=== PATIENT | female | born 1985 | race Caucasian/White ===

== ENCOUNTER 2023-11-04 07:43 | Inpatient (IN) ==
[2023-11-04] MEDS ORDERED: OXYTOCIN 30 UNITS/NSS 30 UNITS/500 ML BAG IV PRN (08:10)
[2023-11-04] MEDS ORDERED: LIDOCAINE 1% LOCAL 20 ML VIAL INFIL PRN (08:10)
[2023-11-04 09:08] LABS: Hematocrit (blood only) 34.9 % (37.0-47.0); Hemoglobin 12.4 g/dl (12.0-16.0); Mean Corpuscular Hemoglobin 27.5 pg (25.0-34.0); Mean Corpuscular Hgb Conc 35.5 g/dL (32.0-36.0); Mean Corpuscular Volume 77.4 fL (80.0-100.0); Mean Platelet Volume 9.2 fL (9.4-12.4); Platelet Count 222 K/uL (130-400); RDW Coefficient of Variation 17.6 % (11.5-14.5); RDW Standard Deviation 49.6 fL (36.4-46.3); Red Blood Count 4.51 M/uL (4.20-5.40); White Blood Count 7.79 K/ul (4.8-10.8)
[2023-11-04] MEDS: DINOPROSTONE 10 MG INSERT PV ONE (09:11)
--- NOTE | 2023-11-04 09:26 | History & Physical Report ---
Date of Service November 04, 2023 Assessment & Plan Admission and Anticipated Discharge Date Admission Date: November 04, 2023 History of Present Illness Chief Complaint: induction of labor Primary Care Provider: RICKY PCP 38 F P0000 at 41 weeks presents for IOL for post-dates. GBS is negative. She has no problems to dates. Allergies Allergy/AdvReac Type Severity Reaction Status Date / Time Penicillins Allergy Intermediate Hives Verified 11/04/23 08:11 Home Medications Medication Instructions Recorded Confirmed Type docusate sodium 100 mg capsule 100 mg PO DAILY 11/04/23 11/04/23 History (Colace) ferrous sulfate 27 mg iron tablet 27 mg PO DAILY 11/04/23 11/04/23 History vit no.95-ferrous 1 tab PO DAILY 11/04/23 11/04/23 History fumarate 28 mg-folic acid 800 mcg tablet () Patient History Medical History Fibroid During . "Shrinking" Was seen in [place]. 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 [employer] Other Information That Helps Us Care for You: No Feels Safe at Home: Yes Safety Concerns: Feels Safe At This Time Diet: regular Assistive Devices: None OB History primip TIP STITCHER History fibroids Review of Systems All systems reviewed & are unremarkable except as noted in HPI & below Physical Exam Constitutional: WD/WN, vitals as above Eyes: PERRL, conjunctivae normal, anicteric sclerae Respiratory: normal respiratory effort, lungs clear to auscultation Cardiovascular: Rate/Rhythm: regular rate and regular rhythm Musculoskeletal: Extremities: extremities normal to inspection Neurologic: patellar DTR's 2+ bilat, sensation intact Psychiatric: A+Ox3, euthymic affect Genitourinary: no vaginal lesions, no adnexal mass Manual OB Exam: + cervical dilation fingertip, + cervical effacement 50% and + station high OB Exam Monitor Tracing: + external FHT monitor used, + external uterine monitor used, + category I and + normal FHT variability Cervidil 10 mg placed vaginally Results & Data Vital Signs (Past 12 Hours) Vital Signs Temp Pulse Resp BP 11/04/23 08:18 36.5 C 20 11/04/23 08:03 100 H 116/85 Code Status & VTE Plan VTE Prophylaxis Plan VTE Prophylaxis will be ordered: No
--- OUTSIDE RECORDS SUMMARY | 2023-11-04 14:17 | External Medical Summary | Summary of Care ---
Author Name Unknown Organization [facility] Address [address] [place] [address] Phone [phone] Care Team Providers Care Chemical Economist Name Role Phone Eli Junior MD Primary Care Provider Reason for Visit * Reason Comments Outpatient Testing Encounter Details Date Type Department Care Team (Late st Contact Info) Description 09/29/2023 8:20 AM EDT Laboratory Laboratory, [facility] [address] [place] [address] [facility] [address] [place] [address] [employer] Other*[id number]; Iron deficiency anemia, unspecified iron deficiency anemia type Allergies Active Allergy Reactions Criticality Noted Date Comments Penicillins Hives 03/16/2017 documented as of this encounter (statuses as of 09/29/2023) Medications Medication Sig Dispensed Refills Start Date End Date Status valACYclovir HCl 1 GM Oral Tablet (Valtrex)Indications :Herpes labialis Take 2 Tablets by mouth in the morning and 2 Tablets before bedtime. For 1 day for cold sores. 12 Tablet 5 03/03/2023 Active 28-0.8 MG Oral Tablet Take by mouth. Active Docusate Sodium 50 MG Oral Capsule Take by mouth 2 times a day. Active Breast Pump Dispense double electric breast pump. Dx Z39.1 1 Each 09/01/2023 Active Vitron-C 65-125 MG Oral Tablet (Iron-Vitamin C 65-125 mg per tab) Take 1 Tablet by mouth in the morning. Active documented as of this encounter (statuses as of 09/29/2023) Active Problems Problem Noted Date Diagnosed Date Iron deficiency anemia 08/19/2023 Antepartum anemia complicating 024 Overview: Recommend iron infusions-- received Supervision of normal first 04/30/2023 AMA (advanced maternal age) primigravida 35+ Uterine fibroid in 04/30/2023 Overview: A subserosal fibroid is seen in the left anterior uterus, measuring 2.8 x 3.1 x 3.2 cm. ~5 cm at 20 weeks; MFM consult ordered COVID-19 virus infection 11/20/2021 Overview: 11/08/21 Estimated Date of Delivery Comme nts Yes 10/28/2023 Based on Ultraso und documented as of this encounter (statuses as of 09/29/2023) Resolved Problems Problem Noted Date Diagnosed Date Resolved Date renal anomaly, single gestation 07/01/2023 08/04/2023 Last Assessment & Plan: I reviewed the ultrasound. The overall estimated weight is consistent with the 55th percentile for the gestational age and the anatomy that was visualized appears unremarkable. The right and left kidneys measure 4.4 and 4.6 mm, respectively. This is appropriate for this gestational age. The fibroid is again seen. The amniotic fluid volume is normal at 20 cm and the fetus is in the vertex presentation. documented as of this encounter (statuses as of 09/29/2023) Immunizations Name Administration Dates Next Due COVID-19 mRNA, LNP-s, No Pre serve, 2-Dose Series (Moderna) 06/12/2020,05/13/2020 COVID-19, mRNA, LNP-s, PF, B ooster, 100mcg/0.5mg (Moderna) 02/15/2021 TDAP (age 10 and older)(Boostrix) 08/19/2023 documented as of this encounter Social History Tobacco Use Types Packs/Day Years Used Date Smoking Tobacco: Never Smokeless Tobacco: Never Alcohol Use Standard Drinks/Week Comments Not Currently 0 (1 standard drink = 0.6 oz pur e alcohol) occ PHQ-2 Answer Date Recorded PHQ Adult Total Score 2 05/10/2021 Hunger Vital Sign Answer Date Recorded Within the past 12 months, y ou worried that your food would run out before you got the money to buy more. Never true 06/02/19 24 Within the past 12 months, t he food you bought just didn't last and you didn't have money to get more. Never true 06/02/2023 [place] Depression Scale Answer Date Recorded [place] Depression Scale Total 7 04/30/2023 The thought of harming myself has occurred to me . Never 04/30/2023 Childcare Answer Date Recorded Do you feel overwhelmed with taking care of a child, family member or friend? No 06/02/2023 Does your family need help f inding childcare? (Household - for ages 0-17 years) Not on file 06/02/2023 Clothing Answer Date Recorded Have you been unable to get clothing when it was really needed? No 06/02/2023 Is your family able to get c lothes or diapers when needed? (Household - for ages 0-17 years) Not on file 06/02/2023 Personal Safety Answer Date Recorded Do you feel unsafe or have concerns for your saf ety? No 06/02/2023 Do you have concerns for you r family's safety? (Household - for ages 0-17 years) Not on file 06/02/2023 Utilities Answer Date Recorded Do you have trouble paying y our heating, water, or electric bill? No 06/02/2023 Is your family able to pay t he heat, water, or electric bill? (Household - for ages 0-17 years) Not on file 06/02/2023 Does your family have access to good internet? (Household - for ages 0-17 years) Not on file 06/02/2023 Employment Status Answer Date Recorded Are you unemployed or without regular income? No 06/02/2023 Does the household have a re gular source of income? (Household - for ages 0-17 years) Not on file 06/02/2023 Social Connections Answer Date Recorded How often do you feel lonely or isolated from th ose around you? Never 06/02/2023 Financial Resource Strain Answer Date R ecorded Do you have any trouble payi ng for your medications, or do you think you might in the future? No 06/02/2023 Does your family have troubl e paying for medicine? (Household - for ages 0-17 years) Not on file 06/02/2023 Transportation Needs Answer Date Record ed READ ONLY Do you have troubl e getting a ride to medical visits or work? Never True 06/02/2023 Does your family have a hard time getting a ride to doctors visits? (Household - for ages 0-17 years) Not on file 06/02/2023 Has lack of transportation k ept you from medical appointments, meetings, work, or from getting things needed for daily living? Check all that apply. (Adult - for ages 18 years and over) Not on file 06/02/2023 Do you (or your family) have trouble finding or paying for a ride (transportation)? (Household - for ages 0-17 years) Not on file 06/02/2023 Housing Stability Answer Date Recorded Do you currently live in a s helter or have no steady place to sleep at night? No 06/02/2023 READ ONLY Do you think you a re at risk of becoming homeless? No 06/02/2023 Does your family worry about paying for your home or becoming homeless? (Household - for ages 0-17 years) Not on file 0 06/02/2023 Are you homeless or worried that you might be in the future? (Adult - for ages 18 years and over) Not on file Are you (or your family) misty eless or worried that you might be in the future? (Household - for ages 0-17 years) Not on file Food Insecurity Answer Date Recorded Do you need food for this week? No 06/02/2023 Are you able to get enough f ood for your family? (Household - for ages 0-17 years) Not on file 06/02/2023 Does your family need food t his week? (Household - for ages 0-17 years) Not on file 06/02/2023 Do you always have enough fo od for your family? (Household - for ages 0-17 years) Not on file 06/02/2023 Estimated Date of Delivery Comme nts Yes 10/28/2023 Based on Ultraso und Sex and Gender Information Value Date Recorded Sex Assigned at Female 11/10/2022 2:30 PM EDT Gender Identity Female 11/10/2022 2:30 PM EDT Sexual Orientation Straight 11/10/2022 2 :30 PM EDT Job Start Date Occupation Industry Not on file Not on file Not on file documented as of this encounter Plan of Treatment Upcoming Encounters Date Type Department Care Team (Late st Contact Info) Description 09/30/2023 9:30 AM EDT Pharmacy Pharmacy, [place] [address] [place] [address] Clinic, [place] [address] [place] [address] 10/06/2023 8:15 AM EDT Office Visit Gynecology/Obstetrics [facility] [address] [place] [address] Destinee Robins CRNP [address] [place] [address] 10/13/2023 8:45 AM EDT Office Visit Gynecology/Obstetrics [facility] [address] [place] [address] Dina Azul CRNP [address] [place] [address] 10/14/2023 11:20 AM EDT Office Visit Pediatrics [facility] [address] [place] [address] Elin Chamberlain PA-C [address] [place] [address] 10/20/2023 8:15 AM EDT Office Visit Gynecology/Obstetrics [facility] [address] [place] [address] Destinee Robins CRNP [address] [place] [address] 10/27/2023 8:15 AM EDT Office Visit Gynecology/Obstetrics [facility] [address] [place] [address] Destinee Robins CRNP [address] [place] [address] Pending Results Name Type Priority Associated Diagnoses Date /Time MYCODE INITIAL ADULT Lab Routine [employer] Other*[id number] 09/29/2023 8:23 AM EDT CBC WITH WBC DIFFERENTIAL Lab Routine Iron deficiency anemia, unspecified iron deficiency anemia type 09/29/2023 8:23 AM EDT IRON SCREEN, INCLUDING TIBC Lab Routine Iron deficiency anemia, unspecified iron deficiency anemia type 09/29/2023 8:23 AM EDT FERRITIN Lab Routine Iron deficiency anemia, unspecified iron deficiency anemia type 09/29/2023 8:23 AM EDT RETICULOCYTE PANEL Lab Routine Iron deficiency anemia, unspecified iron deficiency anemia type 09/29/2023 8:23 AM EDT VITAMIN B12 Lab Routine Iron deficiency anemia, unspecified iron deficiency anemia type 09/29/2023 8:23 AM EDT FOLIC ACID Lab Routine Iron deficiency anemia, unspecified iron deficiency anemia type 09/29/2023 8:23 AM EDT MYCODE INITIAL ADULT-PINK Lab Routine [employer] Other*[id number] 09/29/2023 8:23 AM EDT MYCODE SST1 Lab Routine [employer] Other*[id number] 09/29/2023 8:23 AM EDT MYCODE SST2 Lab Routine [employer] Other*[id number] 09/29/2023 8:23 AM EDT CBC Lab Routine Iron deficiency anemia, unspecified iron deficiency anemia type 09/29/2023 8:23 AM EDT DIFFERENTIAL, AUTOMATED Lab Routine Iron deficiency anemia, unspecified iron deficiency anemia type 09/29/2023 8:23 AM EDT Health Maintenance Due Date Last Done Comments Hepatitis B Vaccine (1 of 3 - 19+ 3-dose series) 2005 Depression Screening 05/10/2022 05/10/2021 COVID-19 Vaccine ( season) 2022 02/15/2021, 06/12/2020, 05/13/2020 Influenza Vaccine (FLU shot) (#1) 2023 Pap Smear 04/29/2026 04/30/2023, 03/12, 03/16/2017, Additional history exists Cervical Cancer Screening 04/29/2028 HPV/Co-Test 04/29/2028 04/30/2023 DTaP,Tdap,and Td Vaccines (2 - Td or Tdap) 08/18/2033 08/19/2023 HPV (Gardasil) Vaccine Aged Out No lo nger eligible based on patient's age to complete this topic MENINGOCOCCAL (MENACTRA/MENVEO) Aged Out No longer eligible based on patient's age to complete this topic Pneumococcal Vaccine: Pediatrics (0 to 5 Years) and At-Risk Patients (6 to 64 Years) Aged Out No longer eligible based on patient's age to complete this topic documented as of this encounter Medical Devices Not on filedocumented as of this encounter Visit Diagnoses Diagnosis [employer] Other*[id number] Iron deficiency anemia, unspecified iron deficiency anemia type documented in this encounter Care Teams Chemical Economist Relationship Specialty Start Date End Date Eli Junior MD [address] [facility] [place] [address] PCP - General Internal Medicine 04/08/21 documented as of this encounter
--- OUTSIDE RECORDS SUMMARY | 2023-11-04 14:17 | External Medical Summary ---
Author Name Unknown Address Unknown Organization K01:[facility] - [address] [place] [address] Laboratory Report Ordering Provider Test Date Status BLAS BALLARD 09/29/2023 08:23:09 Final Observation Date Value Abnormality Reference (Units ) Status Iron 09/29/2023 08:23:09 103 33-151 (ug /dL) Final Iron-binding capacity 09/29/2023 08:23:09 394 250-425 (ug/dL) Final Transferrin Sat % 09/29/2023 08:23:09 26 15 -55 (%) Final Performing Location [facility] - [address] [place] [address]
--- OUTSIDE RECORDS SUMMARY | 2023-11-04 14:17 | External Medical Summary ---
Author Name Unknown Address Unknown Organization K[facility] - [address] [place] [address] Laboratory Report Ordering Provider Test Date Status RADHA MILLS 09/29/2023 08:23:09 Final Observation Date Value Abnormality Reference (Units ) Status MYCODE SPECIMEN-SST 09/29/2023 08:23:09 Freezing of extracted DNA, whole blood and/or serum. Final Performing Location [facility] - [address] [place] [address]
--- OUTSIDE RECORDS SUMMARY | 2023-11-04 14:17 | External Medical Summary | Summary of Care ---
Author Name Unknown Organization [facility] Address [address] [facility] [place] [address] Phone [phone] Care Team Providers Care Biometry Teacher Name Role Phone Eli Junior MD Primary Care Provider Reason for Visit * Reason Comments Return Visit Encounter Details Date Type Department Care Team (Late st Contact Info) Description 10/27/2023 8:15 AM EDT Office Visit Gynecology/Obstetric s [facility] [address] [place] [address] Destinee Robins CRNP [address] [facility] [place] [address] Encounter for supervision of normal first in third trimester*; Primigravida of advanced maternal age in third trimester; Uterine fibroid in ; Antepartum anemia complicating Allergies Active Allergy Reactions Criticality Noted Date Comments Penicillins Hives 03/16/2017 documented as of this encounter (statuses as of 10/27/2023) Medications Medication Sig Dispensed Refills Start Date [...] as of this encounter (statuses as of 10/27/2023) Active Problems Problem Noted Date Diagnosed Date [...] as of this encounter (statuses as of 10/27/2023) Resolved Problems Problem Noted Date Diagnosed Date [...] as of this encounter (statuses as of 10/27/2023) Immunizations Name Administration Dates Next Due COVID-19 [...] money to get more. Never true 06/02/2023 [place] Depression Scale Answer Date Recorded [place] Depression Scale Total 0 10/13/2023 The thought of harming myself has occurred to me . Never 10/13/2023 Childcare Answer Date Recorded Do you feel [...] 2:30 PM EDT Sexual Orientation Straight 11/10/2022 2: 30 PM EDT Job Start Date Occupation Industry Not on file Not on file Not on file documented as of this encounter Last Filed Vital Signs Vital Sign Reading Time Taken Comments Blood Pressure 94/68 10/27/2023 8:19 AM EDT Pulse - - Temperature - - Respiratory Rate - - Oxygen Saturation - - Inhaled Oxygen Concentration - - Weight 64.4 kg (142 lb) 10/27/2023 8:19 AM EDT Height 162.6 cm (5' 4") 10/27/2023 8:19 AM EDT Body Mass Index 24.37 10/27/2023 8:19 AM EDT documented in this encounter Progress Notes * Destinee Robins CRNP - 10/27/2023 8:34 AM EDT 39w6d Feeling well overall. No questions regarding IOL, scheduled for 11/03. Baby is moving well. She denies any contractions, no bleeding or LOF. ANGELICA Bailey documented in this encounter Nursing Notes * Candy Villegas LPN - 10/27/2023 8:26 AM EDT 39w6d Denies concerns. Asking about rsv vaccine as it was recommended by alarm security or surveillance monitor- advised rsv window is 32-36w6d. Patient understands. Given induction instructions. documented in this encounter Plan of Treatment Health Maintenance Due Date Last Done Comments Hepatitis B Vaccine (1 of 3 - 19+ 3-dose series) 2005 Depression Screening 05/10/2022 05/10/2021 COVID-19 Vaccine (4 - 2024-25 season) 2023 02/15/2021, 06/12/2020, 05/13/2020 Influenza Vaccine (FLU shot) (#1) 2023 Pap Smear 04/29/2026 04/30/2023, 03/12, 03/16/2017, Additional history exists Cervical Cancer Screening 04/29/2028 HPV/Co-Test 04/29/2028 04/30/2023 DTap/Tdap Vaccines (2 - Td or Tdap) 08/18/2033 [...] as of this encounter Visit Diagnoses Diagnosis Encounter for supervision of normal first in third trimester- Primary Supervision of normal first Primigravida of advanced maternal age in third trimester Uterine fibroid in Tumors of body of uterus, unspecified as to episode of care in Antepartum anemia complicating Anemia, antepartum documented in this encounter Care Teams Biometry Teacher Relationship Specialty Start Date End Date Eli Junior MD [address] [place] [address] PCP - General Internal Medicine 04/08/21 documented as of this encounter
--- OUTSIDE RECORDS SUMMARY | 2023-11-04 14:17 | External Medical Summary ---
Author Name Unknown Address Unknown Organization K01:[facility] - [facility] [address] [place] [address] Laboratory Report Ordering Provider Test Date Status JENNIFER RAMIREZ 10/06/2023 08:34:59 Final Observation Date Value Abnormality Reference (Units ) Status Streptococcus agalactiae DNA [Presence] in Specimen by JEREMIAS with probe detection 10/06/2023 08:34:59 Negative Negative Final No Group B Streptococcus det ected by culture-enhanced PCR (amplified probe). GBS [facility] - [facility] 10/06/2023 08:34:59 0.0 Final GBS SPCCT - [facility] 10/06/2023 08:34:59 31.4 Final Performing Location [facility]ATORY [facility] - [address] [place] [address]
--- OUTSIDE RECORDS SUMMARY | 2023-11-04 14:17 | External Medical Summary ---
Author Name Unknown Address Unknown Organization K0G:[facility] [address] [facility] [address] [place] [address] Laboratory Report Ordering Provider Test Date Status BLAS BALLARD 09/29/2023 08:23:09 Final Observation Date Value Abnormality Reference (Units ) Status WBC, Total 09/29/2023 08:23:09 6.33 4.00-10.8 0 (K/uL) Final RBC 09/29/2023 08:23:09 4.17 3.85-5.15 (M/uL) Final Hemoglobin 09/29/2023 08:23:09 11.4 Below low normal 12 .0-15.3 (g/dL) Final HCT 09/29/2023 08:23:09 33.4 Below low normal 36. 0-45.2 (%) Final MCV 09/29/2023 08:23:09 80.1 81.5-97.5 (fL) Final MCH 09/29/2023 08:23:09 27.3 27.0-34.0 (pg) Final MCHC 09/29/2023 08:23:09 34.1 32.0-36.0 (g/dL) Final RDW 09/29/2023 08:23:09 17.8 11.5-15.5 (%) Final Platelets 09/29/2023 08:23:09 243 140-400 (K /uL) Final MPV 09/29/2023 08:23:09 9.1 6.6-11.1 ( fL) Final Performing Location [facility] [address] - [address] [place] [address]
--- OUTSIDE RECORDS SUMMARY | 2023-11-04 14:17 | External Medical Summary ---
Author Name Unknown Address Unknown Organization K0G:[facility] - [address] [place] [address] Laboratory Report Ordering Provider Test Date Status BLAS BALLARD 09/29/2023 08:23:09 Final Observation Date Value Abnormality Reference (Units ) Status SYNC LEUKOCYTES IN BLOOD BY AUTOMATED COUNT 09/29/2023 08:23:09 6.33 4.00-10.80 (K/uL) Final Neutrophils/100 leukocytes in Blood by Manual count 09/29/2023 08:23:09 63.0 40.0-75.0 (%) Final Lymphocytes/100 leukocytes in Blood by Manual count 09/29/2023 08:23:09 30.0 18.0-42.0 (%) Final Monocytes/100 leukocytes in Blood by Manual count 09/29/2023 08:23:09 6.0 1.0-11.0 (%) Final Eosinophils/100 leukocytes in Blood by Manual count 09/29/2023 08:23:09 1.0 0.0-6.0 (%) Final Neutrophils [#/volume] in Blood by Manual count 09/29/2023 08:23:09 3.99 1.80-7.70 (K/uL) Final Lymphocytes [#/volume] in Blood by Manual count 09/29/2023 08:23:09 1.90 1.00-4.80 (K/uL) Final Monocytes [#/volume] in Blood by Manual count 09/29/2023 08:23:09 0.38 0.00-1.10 (K/uL) Final Eosinophils [#/volume] in Blood by Manual count 09/29/2023 08:23:09 0.06 0.00-0.70 (K/uL) Final Nucleated erythrocytes/100 leukocytes [Ratio] in Blood by Automated count 09/29/2023 08:23:09 Final Performing Location [facility] - [address] [place] [address]
--- OUTSIDE RECORDS SUMMARY | 2023-11-04 14:17 | External Medical Summary | Summary of Care ---
Author Name Unknown Organization [facility] Address [address] [place] [address] Phone [phone] Care Team Providers Care Specialty Transformer Assembler Name Role Phone Eli Junior MD Primary Care Provider Reason for Visit * Reason Onset Date Comments Anemia Follow-Up 10/05/2023 Encounter Details Date Type Department Care Team (Late st Contact Info) Description 10/02/2023 9:30 AM EDT Pharmacy Pharmacy, [place] [address] [place], [place] [id number] Clinic, Anemia [address], [place] [id number] Iron deficiency anemia, unspecified iron deficiency anemia type* Allergies Active Allergy Reactions Criticality Noted Date Comments Penicillins Hives 03/16/2017 documented as of this encounter (statuses as of 10/05/2023) Medications Medication Sig Dispensed Refills Start Date [...] as of this encounter (statuses as of 10/05/2023) Active Problems Problem Noted Date Diagnosed Date [...] as of this encounter (statuses as of 10/05/2023) Resolved Problems Problem Noted Date Diagnosed Date [...] as of this encounter (statuses as of 10/05/2023) Immunizations Name Administration Dates Next Due COVID-19 [...] money to get more. Never true 06/02/2023 [place] Depression Scale Answer Date Recorded [place] Depression Scale Total 7 04/30/2023 The thought [...] on file documented as of this encounter Progress Notes * Leonidas Bonds RPh - 10/05/2023 10:19 AM EDT Patient Phone Numbers Called patient to review labs from 09/29/23. GA: 36w5d Estimated Date of Delivery: 10/28/23 Hgb: 11.4 g/dL TSAT: 26 % Ferritin: 246 ng/mL Patient is s/p Infed 1000mg on 08/27. Hgb is within target range for the 3rd trimester. Iron studies within target range. Patient reportsfeeling ok, improved fatigue, and otherwise denies signs/symptoms of anemia. Patient is taking Vitron C 1 tab daily and appears to be tolerating it without issue. Plan: No anemia pharmacological intervention at this time. Anemia Clinic will discharge at this time. Thank you for allowing us to participate in the care of this patient. Leonidas Bonds, PharmD Clinical Pharmacist [facility] (P: [phone]) 10/05/2023 10:19 AM documented in this encounter Plan of Treatment Upcoming Encounters Date Type Department Care Team (Late st Contact Info) Description 10/06/2023 8:15 AM EDT Office Visit [facility] [address] [place] [address] Destinee Robins CRNP [address] [place] [address] 10/13/2023 8:45 AM EDT Office Visit Gynecology/Obstetrics [facility] [address] [place] [address] Dina Azul CRNP [address] [place] [address] 10/14/2023 11:20 AM EDT Office Visit Pediatrics [facility] [address] [place] [address] Elin Chamberlain PA-C [address] [place] [address] 10/20/2023 8:15 AM EDT Office Visit Gynecology/Obstetrics [facility] [address] [place] [address] Destinee Robins CRNP [address] [place] [address] 10/27/2023 8:15 AM EDT Office Visit Gynecology/Obstetrics [facility] [address] [place] [address] Destinee Robins CRNP [address] [place] [address] Health Maintenance Due Date Last Done Comments Hepatitis B Vaccine (1 of 3 - 19+ 3-dose series) 2005 Depression Screening 05/10/2022 05/10/2021 COVID-19 Vaccine (2022- season) 2022 02/15/2021, 06/12/2020, 05/13/2020 Influenza Vaccine [...] as of this encounter Visit Diagnoses Diagnosis Iron deficiency anemia, unspecified iron deficiency anemia type- Primary documented in this encounter Care Teams Specialty Transformer Assembler Relationship Specialty Start Date End Date Eli Junior MD [address] [place] [address] PCP - General Internal Medicine 04/08/21 documented as of this encounter
--- OUTSIDE RECORDS SUMMARY | 2023-11-04 14:17 | External Medical Summary ---
Author Name Unknown Address Unknown Organization K01:[facility] - [address] [place] [address] Laboratory Report Ordering Provider Test Date Status BLAS BALLARD 09/29/2023 08:23:09 Final Observation Date Value Abnormality Reference (Units ) Status Vitamin B12 09/29/2023 08:23:09 [id number] (pg/mL) Final Performing Location [facility] - [address] [place] [address]
--- OUTSIDE RECORDS SUMMARY | 2023-11-04 14:17 | External Medical Summary ---
Author Name Unknown Address Unknown Organization K01:[facility] - [address] [place] [address] Laboratory Report Ordering Provider Test Date Status RAHDA MILLS 09/29/2023 08:23:09 Final Observation Date Value Abnormality Reference (Units ) Status MYCODE SPECIMEN-SST 09/29/2023 08:23:09 Freezing of extracted DNA, whole blood and/or serum. Final Performing Location [facility] - [address] [place] [address]
--- OUTSIDE RECORDS SUMMARY | 2023-11-04 14:17 | External Medical Summary | Summary of Care ---
Author Name Unknown Organization [facility] Address [address] [facility] [place] [address] Phone [phone] Care Team Providers Care Plater Supervisor Name Role Phone Eli Junior MD Primary Care Provider Reason for Visit * Reason Comments Return Visit Encounter Details Date Type Department Care Team (Late st Contact Info) Description 10/13/2023 8:45 AM EDT Office Visit Gynecology/Obstetric s [facility] [address] [place] [address] Dina Azul CRNP [address] [place] [address] Encounter for supervision of normal first in third trimester*; Primigravida of advanced maternal age in third trimester; Uterine fibroid in ; Antepartum anemia complicating Allergies Active Allergy Reactions Criticality Noted Date Comments Penicillins Hives 03/16/2017 documented as of this encounter (statuses as of 10/13/2023) Medications Medication Sig Dispensed Refills Start Date [...] as of this encounter (statuses as of 10/13/2023) Active Problems Problem Noted Date Diagnosed Date [...] as of this encounter (statuses as of 10/13/2023) Resolved Problems Problem Noted Date Diagnosed Date [...] as of this encounter (statuses as of 10/13/2023) Immunizations Name Administration Dates Next Due COVID-19 [...] money to get more. Never true 06/02/2023 [place] Depression Scale Answer Date Recorded [place] Depression Scale Total 7 04/30/2023 The [...] Sign Reading Time Taken Comments Blood Pressure 96/64 10/13/2023 8:41 AM EDT Pulse - - Temperature - - Respiratory Rate - - Oxygen Saturation - - Inhaled Oxygen Concentration - - Weight 64 kg (141 lb) 10/13/2023 8:41 AM EDT Height - - Body Mass Index 24.2 10/06/2023 8:22 AM EDT documented in this encounter Progress Notes * Dina Azul CRNP - 10/13/2023 8:52 AM EDT 37w6d Baby is active. No ctx, leaking, bleeding. Reviewed labor signs, when to call. Briefly discussed post dates IOL. Aware of neg GBS. Return in 1 week. ANGELICA Hughes * Rosie Morris LPN - 10/13/2023 8:42 AM EDT 37w6d Denies vaginal bleeding/rom + movement No new concerns documented in this encounter Plan of Treatment Upcoming Encounters Date Type Department Care Team (Late st Contact Info) Description 10/14/2023 11:20 AM EDT Office Visit Pediatrics [facility] [address] [address] Elin Chamberlain PA-C [address] [place] [address] 10/20/2023 8:15 AM EDT Office Visit Gynecology/Obstetrics [facility] [address] [place] [address] Destinee Robins CRNP [address] [place] [address] 10/27/2023 8:15 AM EDT Office Visit Gynecology/Obstetrics [facility] [address] [place] [address] Destinee Robins CRNP [address] [place] [address] Health Maintenance Due Date Last Done Comments Hepatitis B Vaccine (1 of 3 - 19+ 3-dose series) 2005 Depression Screening 05/10/2022 05/10/2021 COVID-19 Vaccine ( season) 2023 02/15/2021, 06/12/2020, 05/13/2020 Influenza Vaccine [...] antepartum documented in this encounter Care Teams Plater Supervisor Relationship Specialty Start Date End Date Eli Junior MD [address] [place] [address] PCP - General Internal Medicine 04/08/21 documented as of this encounter
--- OUTSIDE RECORDS SUMMARY | 2023-11-04 14:17 | External Medical Summary | Summary of Care ---
Author Name Unknown Organization [facility] Address [address] [place] [address] Phone [phone] Care Team Providers Care Final Cigar And Box Examiner Name Role Phone Eli Junior MD Primary Care Provider Encounter Details Date Type Department Care Team (Late st Contact Info) Description 10/05/2023 Orders Only Outcomes Research Department [address] [place], [place] [id number] Oralia Gibbons CHRA [facility] Other*[id number] Allergies Active Allergy Reactions Criticality Noted Date [...] money to get more. Never true 06/02/2023 [place] Depression Scale Answer Date Recorded [place] Depression Scale Total 7 04/30/2023 The thought [...] 10/06/2023 8:15 AM EDT Office Visit Gynecology/Obstetrics [facility] [address] [place] [address] Destinee Robins CRNP [address] [place] [address] 10/13/2023 8:45 AM EDT Office Visit Gynecology/Obstetrics [facility] [address] [place] [address] Dina Azul CRNP [address] [place] [address] 10/14/2023 11:20 AM EDT Office Visit Pediatrics [facility] [address] [place] [address] Elin Chamberlain PA-C [address] [place] [address] 10/20/2023 8:15 AM EDT Office Visit Gynecology/Obstetrics [facility] [address] [place] [address] Destinee Robins CRNP [address] [place] [address] 10/27/2023 8:15 AM EDT Office Visit Gynecology/Obstetrics [facility] [address] [place] [address] Destinee Robins CRNP [address] [place] [address] Scheduled Orders Name Type Priority Associated Diagnoses Orde r Schedule MYCODE SUBSEQUENT ADULT Lab Routine [facility] Other*[id number] Every 6 Months for 2 Occurrences starting 10/05/2023 until 10/24/2024 Health Maintenance Due Date Last Done Comments Hepatitis B Vaccine (1 of 3 - 19+ 3-dose series) 2005 Depression Screening 05/10/2022 05/10/2021 COVID-19 Vaccine ( - 2022-24 season) 2022 02/15/2021, 06/12/2020, 05/13/2020 Influenza Vaccine [...] this encounter Visit Diagnoses Diagnosis [facility] Other*[id number] documented in this encounter Care Teams Final Cigar And Box Examiner Relationship Specialty Start Date End Date Eli Junior MD [address] [place] [address] PCP - General Internal Medicine 04/08/21 documented as of this encounter
--- OUTSIDE RECORDS SUMMARY | 2023-11-04 14:17 | External Medical Summary | Summary of Care ---
Author Name Unknown Organization [facility] Address [address] [place] [address] Phone [phone] Care Team Providers Care Aircraft Steel Fabricator Name Role Phone Eli Junior MD Primary Care Provider Reason for Visit * Reason Comments Other Mom and Dad here for visit Encounter Details Date Type Department Care Team (Late st Contact Info) Description 10/14/2023 11:20 AM EDT Office Visit Pediatrics [facility] [address] [place] [address] Elin Chamberlain PA-C [address] [place] [address] consult* Allergies Active Allergy Reactions Criticality Noted Date Comments Penicillins Hives 03/16/2017 documented as of this encounter (statuses as of 10/14/2023) Medications Medication Sig Dispensed Refills Start Date [...] as of this encounter (statuses as of 10/14/2023) Active Problems Problem Noted Date Diagnosed Date [...] as of this encounter (statuses as of 10/14/2023) Resolved Problems Problem Noted Date Diagnosed Date [...] as of this encounter (statuses as of 10/14/2023) Immunizations Name Administration Dates Next Due COVID-19 [...] money to get more. Never true 06/02/2023 [place] Depression Scale Answer Date Recorded [place] Depression Scale Total 0 10/13/2023 The thought [...] as of this encounter Progress Notes * Elin Chamberlain PA-C - 10/14/2023 3:31 PM EDT I met with mom and dad in anticipation of their first child. Mom is currently 38 weeks andis due with a little boy on 10/28/23. Her only issue during the was due to a fibroid that they were monitoring so that it didn't affect growth. After August they noted that the fibroid was shrinking and they stopped getting regular ultrasounds. Discussed what happens in the hospital and how they will start in the practice. Discussed the philosophy of the practice. Questions were answered. Elin Chamberlain PA-C documented in this encounter Plan of Treatment Upcoming Encounters Date Type Department Care Team (Late st Contact Info) Description 10/20/2023 8:15 AM EDT Office Visit Gynecology/Obstetrics [facility] [address] [place] [address] Destinee Robins CRNP [address] [place] [address] 10/27/2023 8:15 AM EDT Office Visit Gynecology/Obstetrics [facility] [address] [place] [address] Destinee Robins CRNP [address] [place] [address] Health Maintenance Due Date Last Done Comments [...] as of this encounter Visit Diagnoses Diagnosis consult- Primary Other reasons for seeking consultation documented in this encounter Care Teams Aircraft Steel Fabricator Relationship Specialty Start Date End Date Eli Junior MD [address] [address] PCP - General Internal Medicine 04/08/21 documented as of this encounter
--- OUTSIDE RECORDS SUMMARY | 2023-11-04 14:17 | External Medical Summary | Summary of Care ---
Author Name Unknown Organization [facility] Address [address] [facility] [place] [address] Phone [phone] Care Team Providers Care All Terrain Vehicle Racer Name Role Phone Eli Junior MD Primary Care Provider Reason for Visit * Reason Comments Return Visit Encounter Details Date Type Department Care Team (Late st Contact Info) Description 10/06/2023 8:15 AM EDT Office Visit Gynecology/Obstetric s [facility] [address] [place] [address] Destinee Robins CRNP [address] [facility] [place] [address] Encounter for supervision of normal first in third trimester*; Primigravida of advanced maternal age in third trimester; Uterine fibroid in ; Antepartum anemia complicating Allergies Active Allergy Reactions Criticality Noted Date Comments Penicillins Hives 03/16/2017 documented as of this encounter (statuses as of 10/06/2023) Medications Medication Sig Dispensed Refills Start Date [...] as of this encounter (statuses as of 10/06/2023) Active Problems Problem Noted Date Diagnosed Date [...] as of this encounter (statuses as of 10/06/2023) Resolved Problems Problem Noted Date Diagnosed Date [...] as of this encounter (statuses as of 10/06/2023) Immunizations Name Administration Dates Next Due COVID-19 [...] money to get more. Never true 06/02/2023 [place] Depression Scale Answer Date Recorded [place] Depression Scale Total 7 04/30/2023 The thought [...] Reading Time Taken Comments Blood Pressure 94/68 10/06/2023 8:22 AM EDT Pulse - - Temperature - - Respiratory Rate - - Oxygen Saturation - - Inhaled Oxygen Concentration - - Weight 62.6 kg (138 lb) 10/06/2023 8:22 AM EDT Height 162.6 cm (5' 4") 10/06/2023 8:22 AM EDT Body Mass Index 23.69 10/06/2023 8:22 AM EDT documented in this encounter Progress Notes * Destinee Robins CRNP - 10/06/2023 8:35 AM EDT 36w6d Complaints: none Feeling well overall. Good FM. No contractions, bleeding, or LOF. GBS today. Structural Biologist Documentation Provider requested incident manager. Name of incident manager: ANGELICA Basilio documented in this encounter Nursing Notes * Candy Villegas LPN - 10/06/2023 8:25 AM EDT 36w6d Denies concerns Gbs today documented in this encounter Plan of Treatment Upcoming Encounters Date Type Department Care Team (Late st Contact Info) Description 10/13/2023 8:45 AM EDT Office Visit Gynecology/Obstetrics [facility] [address] [place] [address] Dina Azul CRNP [address] [place] [address] 10/14/2023 11:20 AM EDT Office Visit Pediatrics [facility] [address] [place] [address] Elin Chamberlain PA-C [address] [place] [address] 10/20/2023 8:15 AM EDT Office Visit Gynecology/Obstetrics [facility] [address] [place] [address] Destinee Robins CRNP [address] [place] [address] 10/27/2023 8:15 AM EDT Office Visit Gynecology/Obstetrics [facility] [address] [place] [address] Destinee Robins CRNP [address] [place] [address] Pending Results Name Type Priority Associated Diagnoses Date /Time GROUP B STREP CULTURE/PCR Lab Routine Encounter for supervision of normal first in third trimester 10/06/2023 8:34 AM EDT Health Maintenance Due Date Last [...] antepartum documented in this encounter Care Teams All Terrain Vehicle Racer Relationship Specialty Start Date End Date Eli Junior MD [address] [place] [address] PCP - General Internal Medicine 04/08/21 documented as of this encounter
--- OUTSIDE RECORDS SUMMARY | 2023-11-04 14:17 | External Medical Summary | Summary of Care ---
Author Name Unknown Organization [facility] Address [address] [place] [facility] [place] [address] Phone [phone] Care Team Providers Care Shirt Sewer Name Role Phone Eli Junior MD Primary Care Provider Reason for Visit * Reason Comments Return Visit Encounter Details Date Type Department Care Team (Late st Contact Info) Description 09/29/2023 8:00 AM EDT Office Visit Gynecology/Obstetric s [facility] [address] [place] [address] Destinee Robins CRNP [address] [facility] [place] [address] Encounter for supervision of normal first in [...] money to get more. Never true 06/02/2023 [place] Depression Scale Answer Date Recorded [place] Depression Scale Total 7 04/30/2023 The thought [...] Sign Reading Time Taken Comments Blood Pressure 100/58 09/29/2023 7:53 AM EDT Pulse - - Temperature - - Respiratory Rate - - Oxygen Saturation - - Inhaled Oxygen Concentration - - Weight 62.1 kg (137 lb) 09/29/2023 7:53 AM EDT Height 162.6 cm (5' 4") 09/29/2023 7:53 AM EDT Body Mass Index 23.52 09/29/2023 7:53 AM EDT documented in this encounter Progress Notes * Destinee Robins CRNP - 09/29/2023 8:12 AM EDT 35w6d Occasional SOB with going up stairs. Some cramping last week, resolved. Baby is active. Denies contractions, bleeding, LOF. ANGELICA Bailey * Ashia Avila LPN - 09/29/2023 7:53 AM EDT 35w6d Discuss epidural documented in this encounter Plan of Treatment Upcoming Encounters Date Type Department Care Team (Late st Contact Info) Description 09/30/2023 9:30 AM EDT Pharmacy Pharmacy, [place] [address] [place] [address] Clinic, [place] [address] [place] [address] 10/06/2023 8:15 AM EDT Office Visit Gynecology/Obstetrics [facility] [address] [place] [address] Destinee Robins CRNP [address] [place] [address] 10/13/2023 8:45 AM EDT Office Visit Gynecology/Obstetrics [facility] [address] [place] [address] Dina Azul CRNP [address] [place] [address] 10/20/2023 8:15 AM EDT Office Visit Gynecology/Obstetrics [facility] [address] [place] [address] Destinee Robins CRNP [address] [place] [address] 10/27/2023 8:15 AM EDT Office Visit Gynecology/Obstetrics [facility] [address] [place] [address] Destinee Robins CRNP [address] [place] [address] Health Maintenance Due Date Last Done Comments Hepatitis B Vaccine (1 of 3 - 19+ 3-dose series) 2005 Depression Screening 05/10/2022 05/10/2021 COVID-19 Vaccine (2022-24 season) 2022 02/15/2021, 06/12/2020, 05/13/2020 Influenza Vaccine [...] antepartum documented in this encounter Care Teams Shirt Sewer Relationship Specialty Start Date End Date Eli Junior MD [address] [place] [address] PCP - General Internal Medicine 04/08/21 documented as of this encounter
--- OUTSIDE RECORDS SUMMARY | 2023-11-04 14:17 | External Medical Summary | Summary of Care ---
Author Name Unknown Organization [facility] Address [address] [facility] [place] [address] Phone [phone] Care Team Providers Care Bilingual Teacher Assistant Name Role Phone Eli Junior MD Primary Care Provider Reason for Visit * Reason Comments Return Visit Encounter Details Date Type Department Care Team (Late st Contact Info) Description 10/20/2023 8:15 AM EDT Office Visit Gynecology/Obstetric s [facility] [address] [place] [address] Destinee Robins CRNP [address] [place] [address] Encounter for supervision of normal first in third trimester*; Primigravida of advanced maternal age in third trimester; Uterine fibroid in ; Antepartum anemia complicating Allergies Active Allergy Reactions Criticality Noted Date Comments Penicillins Hives 03/16/2017 documented as of this encounter (statuses as of 10/20/2023) Medications Medication Sig Dispensed Refills Start Date [...] as of this encounter (statuses as of 10/20/2023) Active Problems Problem Noted Date Diagnosed Date [...] as of this encounter (statuses as of 10/20/2023) Resolved Problems Problem Noted Date Diagnosed Date [...] as of this encounter (statuses as of 10/20/2023) Immunizations Name Administration Dates Next Due COVID-19 [...] money to get more. Never true 06/02/2023 [place] Depression Scale Answer Date Recorded [place] Depression Scale Total 0 10/13/2023 The thought [...] Sign Reading Time Taken Comments Blood Pressure 98/62 10/20/2023 8:25 AM EDT Pulse - - Temperature - - Respiratory Rate - - Oxygen Saturation - - Inhaled Oxygen Concentration - - Weight 64 kg (141 lb) 10/20/2023 8:25 AM EDT Height 162.6 cm (5' 4") 10/20/2023 8:25 AM EDT Body Mass Index 24.2 10/20/2023 8:25 AM EDT documented in this encounter Progress Notes * Destinee Robins CRNP - 10/20/2023 8:46 AM EDT 38w6d No concerns. Discussed IOL timing, will discuss with FOB and notify office of timing she'd prefer. Discussed recommendation of delivery no later than 42w. Baby is active. Denies contractions, bleeding, LOF. ANGELICA Bailey documented in this encounter Nursing Notes * Candy Villegas LPN - 10/20/2023 8:26 AM EDT 38w5d Declines scheduling iol today. documented in this encounter Plan of Treatment Upcoming Encounters Date Type Department Care Team (Late st Contact Info) Description 10/27/2023 8:15 AM EDT Office Visit Gynecology/Obstetrics [facility] [address] [place] [id number] Destinee Robins CRNP [address] [place] [address] Health Maintenance Due Date Last Done Comments Hepatitis B Vaccine (1 of 3 - 19+ 3-dose series) 2005 Depression Screening 05/10/2022 05/10/2021 COVID-19 Vaccine (4 - 2022-24 season) 2023 02/15/2021, 06/12/2020, 05/13/2020 Influenza Vaccine [...] antepartum documented in this encounter Care Teams Bilingual Teacher Assistant Relationship Specialty Start Date End Date Eli Junior MD [address] [address] PCP - General Internal Medicine 04/08/21 documented as of this encounter
--- OUTSIDE RECORDS SUMMARY | 2023-11-04 14:18 | External Medical Summary ---
Author Name Unknown Address Unknown Organization K01:[facility] [place] [facility] [place] [address] Laboratory Report Ordering Provider Test Date Status BLAS BALLARD 09/29/2023 08:23:09 Final Observation Date Value Abnormality Reference (Units ) Status Retic, % (auto) 09/29/2023 08:23:09 2.38 Above high normal 0.80-1.90 (%) Final Reticulocytes, Absolute 09/29/2023 08:23:09 99.2 31.3-100.1 (K/uL) Final Reticulocyte fraction, immature 09/29/2023 08:23:09 27.9 Above high normal 2.5-20.6 (%) Final Reticulocyte HGB 09/29/2023 08:23:09 32.5 29.7-37.4 (pg) Final Performing Location [facility] [place] [facility] [place] [address]
--- OUTSIDE RECORDS SUMMARY | 2023-11-04 14:18 | External Medical Summary | Summary of Care ---
Author Name Unknown Organization [facility] Address [address] [place] [address] Phone [phone] Care Team Providers Care International Marketing Specialist Name Role Phone Eli Junior MD Primary Care Provider Reason for Referral * Evaluate & Treat - Unlimited Visits (Within 3 days (urgent)) - Authorized Specialty Diagnoses / Procedures Referred By Contac t Referred To Contact Pharmacist / Pharmacy Diagnoses Anemia in Destinee Robins CRNP [address] [place] [address] Referral ID Status Reason Start Date Expiration Date Visits Requested Visits Authorized [id number] Authorized Specialty Services Required 08/07/2023 02/03/2024 99 99 Question Answer Referral Priority Within 3 days (urgent) Where should this appointment be scheduled? Fabien Referring Provider Role: Specialist Specialty: residence manager Reason for Referral: Anemia Comments Pharmacist Medication Therapy Management: Iron deficiency anemia Shaun Alonzo RN Reason for Visit * Reason Onset Date Comments Blood Management Program 08/07/2023 Encounter Details Date Type Department Care Team (Late st Contact Info) Description 08/07/2023 Telephone Patient Blood Management, [facility] [address] [place] [address] Destinee Robins CRNP [address] [place] [address] Blood Management Program Allergies Active Allergy Reactions Criticality Noted Date Comments Penicillins Hives 03/16/2017 documented as of this encounter (statuses as of 09/04/2023) Medications Medication Sig Dispensed Refills Start Date End Date Status valACYclovir HCl 1 GM Oral Tablet (Valtrex)Indications: Herpes labialis Take 2 Tablets by mouth in the morning and 2 Tablets before bedtime. For 1 day for cold sores. 12 Tablet 5 03/03/2023 Active 28-0.8 MG Oral Tablet Take by mouth. Active Docusate Sodium 50 MG Oral Capsule Take by mouth 2 times a day. Active documented as of this encounter (statuses as of 09/04/2023) Active Problems Problem Noted Date Diagnosed Date [...] as of this encounter (statuses as of 09/04/2023) Resolved Problems Problem Noted Date Diagnosed Date [...] as of this encounter (statuses as of 09/04/2023) Immunizations Name Administration Dates Next Due COVID-19 mRNA, LNP-s, No Pre serve, 2-Dose Series (Moderna) 06/12/2020,05/13/2020 COVID-19, mRNA, LNP-s, PF, B ooster, 100mcg/0.5mg (Moderna) 02/15/2021 documented as of this encounter Social History [...] money to get more. Never true 06/02/2023 [place] Depression Scale Answer Date Recorded [place] Depression Scale Total 7 04/30/2023 The thought [...] on file documented as of this encounter Miscellaneous Notes * Telephone Encounter - Shaun Alonzo RN - 08/07/2023 3:12 PM EDT Recommend Venofer IV per OB MTM Protocol Pt. Agreeable to IV iron at [facility] documented in this encounter Plan of Treatment Upcoming Encounters Date Type Department Care Team (Late st Contact Info) Description 09/15/2023 8:30 AM EDT Office [facility] [address] [address] Dina Azul CRNP [address] [place] [address] 09/29/2023 8:00 AM EDT Office Visit Gynecology/Obstetrics [facility] [address] [address] Destinee Robins CRNP [address] [place] [address] 09/30/2023 9:30 AM EDT Pharmacy Pharmacy, [address] [address] [facility] [address] [facility] [address] Scheduled Referrals Name Type Priority Associated Diagnoses Orde r Schedule PHARMACIST MEDS THERAPY MGMT REFERRAL OP Referral Within 3 days (urgent) Anemia in Ordered: 08/07/2023 Health Maintenance Due Date Last Done Comments [...] as of this encounter Visit Diagnoses Diagnosis Anemia in - Primary Anemia of mother, complicating , childbirth, or the puerperium, unspecified as to episode of care documented in this encounter Care Teams International Marketing Specialist Relationship Specialty Start Date End Date Eli Junior MD [address] [place] [address] PCP - General Internal Medicine 04/08/21 documented as of this encounter
--- OUTSIDE RECORDS SUMMARY | 2023-11-04 14:18 | External Medical Summary | Summary of Care ---
Author Name Unknown Organization [facility] Address [address] [facility] [place] [address] Phone [phone] Care Team Providers Care Grain Shipper Name Role Phone Eli Junior MD Primary Care Provider Reason for Visit * Reason Comments Return Visit Encounter Details Date Type Department Care Team (Late st Contact Info) Description 09/15/2023 8:30 AM EDT Office Visit Gynecology/Obstetric s [facility] [address] [place] [address] Dina Azul CRNP [address] [facility] [place] [address] Encounter for supervision of normal first in third trimester*; Primigravida of advanced maternal age in third trimester; Uterine fibroid in ; Antepartum anemia complicating Allergies Active Allergy Reactions Criticality Noted Date Comments Penicillins Hives 03/16/2017 documented as of this encounter (statuses as of 09/15/2023) Medications Medication Sig Dispensed Refills Start Date [...] as of this encounter (statuses as of 09/15/2023) Active Problems Problem Noted Date Diagnosed Date [...] as of this encounter (statuses as of 09/15/2023) Resolved Problems Problem Noted Date Diagnosed Date [...] as of this encounter (statuses as of 09/15/2023) Immunizations Name Administration Dates Next Due COVID-19 [...] money to get more. Never true 06/02/2023 [place] Depression Scale Answer Date Recorded [place] Depression Scale Total 7 04/30/2023 The thought [...] Sign Reading Time Taken Comments Blood Pressure 108/64 09/15/2023 8:23 AM EDT Pulse - - Temperature - - Respiratory Rate - - Oxygen Saturation - - Inhaled Oxygen Concentration - - Weight 60.3 kg (133 lb) 09/15/2023 8:23 AM EDT Height 162.6 cm (5' 4") 09/15/2023 8:23 AM EDT Body Mass Index 22.83 09/15/2023 8:23 AM EDT documented in this encounter Progress Notes * Dina Azul CRNP - 09/15/2023 8:24 AM EDT 33w6d Baby moving well. No regular ctx, leaking/bleeding. Reviewed labor instructions and [facility], when to call. Questions answered regarding childbirth classes, peds, circumcision. Growth scan completed with M last month. Return in 2 weeks. ANGELICA Hughes * Ashia Avila LPN - 09/15/2023 8:23 AM EDT 33w6d Denies any issues documented in this encounter Plan of Treatment Upcoming Encounters Date Type Department Care Team (Late st Contact Info) Description 09/29/2023 8:00 AM EDT Office Visit Gynecology/Obstetrics [facility] [address] [address] Destinee Robins CRNP [address] [place] [address] 09/29/2023 8:30 AM EDT Laboratory Laboratory, [facility] [address] [place] [address] [facility] [address] [place] [address] 09/30/2023 9:30 AM EDT Pharmacy Pharmacy, [address] [address] 10/06/2023 8:15 AM EDT Office Visit Gynecology/Obstetrics [facility] [address] [place] [address] Destinee Robins CRNP [address] [place] [address] 10/13/2023 8:45 AM EDT Office Visit Gynecology/Obstetrics [facility] [address] [place] [address] Dina Azul CRNP [address] [place] [address] 10/20/2023 8:15 AM EDT Office Visit Gynecology/Obstetrics [facility] [address] [place] [address] Destinee Robins CRNP [address] [place] [address] 10/27/2023 8:15 AM EDT Office [facility] [address] [place] [address] Destinee Robins CRNP [address] [place] [address] Health Maintenance Due Date Last Done Comments Hepatitis B Vaccine (1 of 3 - 19+ 3-dose series) 2005 Depression Screening 05/10/2022 05/10/2021 COVID-19 Vaccine (4 - 2022-24 season) 2022 02/15/2021, 06/12/2020, 05/13/2020 [...] antepartum documented in this encounter Care Teams Grain Shipper Relationship Specialty Start Date End Date Eli Junior MD [address] [place] [address] PCP - General Internal Medicine 04/08/21 documented as of this encounter
--- OUTSIDE RECORDS SUMMARY | 2023-11-04 14:18 | External Medical Summary | Summary of Care ---
Author Name Unknown Organization [facility] Address [address] [place] [address] Phone [phone] Care Team Providers Care Writer Producer Name Role Phone Eli Junior MD Primary Care Provider Reason for Visit * Reason Comments IV Therapy Infed Encounter Details Date Type Department Care Team (Latest Contact Info) Description 08/28/2023 1:30 PM EDT Hem/Onc Treatment Hematology/Oncology Treatment, [place] [address] [place] [address] Iron deficiency anemia, unspecified iron deficiency anemia type* Allergies Active Allergy Reactions Criticality Noted Date Comments Penicillins Hives 03/16/2017 documented as of this encounter (statuses as of 09/17/2023) Medications Medication Sig Dispensed Refills Start Date [...] as of this encounter (statuses as of 09/17/2023) Active Problems Problem Noted Date Diagnosed Date [...] as of this encounter (statuses as of 09/17/2023) Resolved Problems Problem Noted Date Diagnosed Date [...] as of this encounter (statuses as of 09/17/2023) Immunizations Name Administration Dates Next Due COVID-19 mRNA, LNP-s, No Pre serve, 2-Dose Series (Moderna) 06/12/2020,05/13/2020 COVID-19, mRNA, LNP-s, PF, B ooster, 100mcg/0.5mg (Moderna) 02/15/2021 TDAP (age 10 and older)(Boostrix) 08/19/2023 documented as of this encounter Social History Tobacco Use Types Packs/Day Years Used Date Smoking Tobacco: Never Smokeless Tobacco: Never Tobacco Cessation:Counseling Given: Not Answered Alcohol Use Standard Drinks/Week Comments Not Currently [...] money to get more. Never true 06/02/2023 [place] Depression Scale Answer Date Recorded [place] Depression Scale Total 7 04/30/2023 The thought [...] 06/02/2023 Does the household have a re lar source of income? (Household - for ages [...] Sign Reading Time Taken Comments Blood Pressure 101/70 08/28/2023 3:24 PM EDT Pulse 82 08/28/2023 3:24 PM EDT Temperature 37.3 C (99.2 F) 08/28/2023 2:05 PM ED T Respiratory Rate 16 08/28/2023 2:55 PM EDT Oxygen Saturation 98% 08/28/2023 2:55 PM EDT Inhaled Oxygen Concentration - - Weight - - Height - - Body Mass Index - - documented in this encounter Nursing Notes * Nara Jean Baptiste RN - 08/28/2023 3:33 PM EDT Chair 12, InFed. Pt has no acute concerns to report today. Reviewed medication and infusion processwith pt; pt verbalized understanding. PIV established; NSS infusing. Safety and Risk for Injury Patient will remain free from injury. Ensure appropriate safety devices are available. Provide and maintain safe environment. InFed IVP administered; pt monitored for 15 minutes without issues. InFed infused per order; pt tolerated well. Vital signs stable, WNL. PIV removed. Goals: Pt will remain free from injury Possible barriers to meeting goals: ambulation with IV pole, risk of reaction Stability of the patient: Moderately stable - low risk of patient condition declining or worsening Summary regarding today's goals: Met: Pt Pt remained free from injury during treatment today. Discharged in stable condition. documented in this encounter Plan of Treatment Upcoming Encounters Date Type Department Care Team (Late st Contact Info) Description 09/29/2023 8:00 AM EDT Office Visit Gynecology/Obstetrics [facility] [address] [place] [address] Destinee Robins CRNP [address] [place] [address] 09/29/2023 8:30 AM EDT [facility] [address] [place] [phone] Monica Slaughter [address] [place] [address] 09/30/2023 9:30 AM EDT Pharmacy Pharmacy, [place] [address] [place] [address] Clinic, [facility] [address] [facility] [address] 10/06/2023 8:15 AM EDT Office Visit Gynecology/Obstetrics [facility] [address] [place] [address] Destinee Robins CRNP [address] [place] [address] 10/13/2023 8:45 AM EDT Office Visit Gynecology/Obstetrics [facility] [address] [place] [address] Dina Azul CRNP [address] [place] [address] 10/20/2023 8:15 AM EDT Office Visit Gynecology/Obstetrics [facility] [address] [place] [address] Destinee Robins CRNP [address] [place] [address] 10/27/2023 8:15 AM EDT Office Visit Gynecology/Obstetrics [facility] [address] [place] [address] Destinee Robins CRNP [address] [place] [address] Health Maintenance Due Date Last Done Comments [...] anemia type- Primary documented in this encounter Administered Medications Inactive Administered Medications - up to 3 most recent administrations Medication Order MAR Action Action Date Dose Rate Site Iron Dextran (Infed) 975 mg in NSS 250 mL INFUSION 975 mg, IV Piggyback, ONCE, 1 dose, On Thu08/28/23 at 1500, Administer over 1 Hours, - Administer iron dextran infusion bag (over 1 hour) - Monitor for infusion reaction with vitals and observe for reactions at 30 minutes and 60 minutes - If patient develops sign/symptoms of reaction or vital signs outside normal limits: 1) STOP infusion 2) CONTACT physician Start Infusion 08/28/2023 2:21 PM EDT 975 mg 274.5 mL/hr Iron Dextran (Infed) IV Push TEST DOSE 25 mg IV Push, Administer over 0.5 Minutes, Educate patient on sign/symptoms of infusion reaction -Administer 25 mg test dose of iron dextran before infusion bag -Observe patient for sign/symptoms of reaction with vitals sign before test dose and 15 minutes after -If patient tolerates test dose with no reaction, proceed with iron dextran infusion -HOLD infusion and contact physician immediately if patient reacts to test dose, ONCE, 1 dose, On Thu08/28/23 at 1445 Given 08/28/2023 1:50 PM EDT 25 mg NSS infusion Intravenous, at 50 mL/hr, PRN, Starting on Thu08/28/23 at 1445, Until Thu08/28/23 at 1955, Maintenance line Start Infusion 08/28/2023 1:44 PM EDT 50 mL/hr documented in this encounter Care Teams Writer Producer Relationship Specialty Start Date End Date Eli Junior MD [address] [address] PCP - General Internal Medicine 04/08/21 documented as of this encounter
--- OUTSIDE RECORDS SUMMARY | 2023-11-04 14:18 | External Medical Summary ---
Author Name Unknown Address Unknown Organization [facility] [address] [place] [address] Laboratory Report Ordering Provider Test Date Status BLAS BALLARD 09/29/2023 08:23:09 Final Observation Date Value Abnormality Reference (Units ) Status Ferritin 09/29/2023 08:23:09 246 Above high normal 13 -150 (ng/mL) Final Performing Location [facility] [address] [place] [address]
--- OUTSIDE RECORDS SUMMARY | 2023-11-04 14:18 | External Medical Summary | Summary of Care ---
Author Name Unknown Organization [facility] Address [address] [place] [address] Phone [phone] Care Team Providers Care Finance Clerk Name Role Phone Eli Junior MD Primary Care Provider Encounter Details Date Type Department Care Team (Late st Contact Info) Description 09/03/2023 Telephone Aircraft Engine Mechanic Obstetrics Maternal Medicine, [place] [address] [place], [place] [id number] [place], Nurse Aircraft Engine Mechanic [facility] [address] [place] [address] Allergies Active Allergy Reactions Criticality Noted Date Comments Penicillins Hives 03/16/2017 documented as of this encounter (statuses as of 09/03/2023) Medications Medication Sig Dispensed Refills Start Date [...] pump. Dx Z39.1 1 Each 09/01/2023 Active documented as of this encounter (statuses as of 09/03/2023) Active Problems Problem Noted Date Diagnosed Date [...] as of this encounter (statuses as of 09/03/2023) Resolved Problems Problem Noted Date Diagnosed Date [...] as of this encounter (statuses as of 09/03/2023) Immunizations Name Administration Dates Next Due COVID-19 [...] money to get more. Never true 06/02/2023 [place] Depression Scale Answer Date Recorded [place] Depression Scale Total 7 04/30/2023 The thought [...] encounter Miscellaneous Notes * Telephone Encounter - Brook Palacios OSA - 09/03/2023 9:33 AM EDT Called pt. To make her aware that per Dr. Blackwell her US from today looked good and she does not needany follow ups so the ones scheduled in the future will be canceled. Pt. Understood. documented in this encounter Plan of Treatment Upcoming Encounters Date Type Department Care Team (Late st Contact Info) Description 09/15/2023 8:30 AM EDT Office Visit Gynecology/Obstetrics [facility] [address] [place] [address] Dina Azul CRNP [address] [place] [address] 09/29/2023 8:00 AM EDT Office Visit Gynecology/Obstetrics [facility] [address] [place] [address] Destinee Robins CRNP [address] [place] [address] 09/30/2023 9:30 AM EDT Pharmacy Pharmacy, [place] [address] [place], [place] [phone] [facility], [facility] [address] [place], [place] [address] Health Maintenance Due Date Last Done Comments [...] Not on filedocumented as of this encounter Care Teams Finance Clerk Relationship Specialty Start Date End Date Eli Junior MD [address] [place] [address] PCP - General Internal Medicine 04/08/21 documented as of this encounter
--- OUTSIDE RECORDS SUMMARY | 2023-11-04 14:18 | External Medical Summary ---
Author Name Unknown Address Unknown Organization [facility] [address] [facility] [address] Laboratory Report Ordering Provider Test Date Status RADHA MILLS 09/29/2023 08:23:09 Final Observation Date Value Abnormality Reference (Units ) Status OrthoScanODE SPECIMEN-LAV 09/29/2023 08:23:09 Freezing of extracted DNA, whole blood and/or serum. Final Performing Location [facility] - [address] [facility] [address]
--- OUTSIDE RECORDS SUMMARY | 2023-11-04 14:18 | External Medical Summary | Summary of Care ---
Author Name Unknown Organization [facility] Address [address] [place] [address] Phone [phone] Care Team Providers Care Relief Cook Name Role Phone Eli Junior MD Primary Care Provider Reason for Visit * Reason Comments IV Therapy Infed Encounter Details Date Type Department Care Team (Latest Contact Info) Description 08/28/2023 1:30 PM EDT Hem/Onc Treatment Hematology/Oncology Treatment, [place] [address] [place] [address] Iron deficiency anemia, unspecified iron [...] money to get more. Never true 06/02/2023 [place] Depression Scale Answer Date Recorded [place] Depression Scale Total 7 04/30/2023 The thought [...] Gynecology/Obstetrics [facility] [address] [place] [address] Destinee Robins CRNP [address] [place] [address] 09/29/2023 8:30 AM EDT [facility] [address] [place] [phone] Monica Slaughter [address] [place] [address] 09/30/2023 9:30 AM EDT Pharmacy Pharmacy, [place] [address] [place] [address] Clinic, [facility] [address] [place] [facility] [place] [address] 10/06/2023 8:15 AM EDT Office Visit Gynecology/Obstetrics [facility] [address] [place] [address] Destinee Robins CRNP [address] [place] [address] 10/13/2023 8:45 AM EDT Office Visit Gynecology/Ob[facility]etric[facility] [address] [place] [address] Dina Azul CRNP [address] [place] [address] 10/20/2023 8:15 AM EDT Office Visit Gynecology/[facility] [address] [place] [address] Destinee Robins CRNP [address] [place] [address] 10/27/2023 8:15 AM EDT Office Visit Gynecology/[facility] [address] [place] [address] Destinee Robins CRNP [address] [place] [address] Health Maintenance Due Date Last Done Comments [...] mL/hr documented in this encounter Care Teams Relief Cook Relationship Specialty Start Date End Date Eli Junior MD [address] [address] PCP - General Internal Medicine 04/08/21 documented as of this encounter
--- OUTSIDE RECORDS SUMMARY | 2023-11-04 14:18 | External Medical Summary ---
Author Name Unknown Address Unknown Organization K[facility] - [address] [place] [address] Laboratory Report Ordering Provider Test Date Status BLAS BALLARD 09/29/2023 08:23:09 Final Observation Date Value Abnormality Reference (Units ) Status Folic Acid 09/29/2023 08:23:09 >20.0 >4.5 (ng/ mL) Final Performing Location [facility] [address] [place] [address]
--- OUTSIDE RECORDS SUMMARY | 2023-11-04 14:18 | External Medical Summary | Summary of Care ---
Author Name Unknown Organization [facility] Address [address] [place] [address] Phone [phone] Care Team Providers Care Architecture Manager Name Role Phone Eli Junior MD Primary Care Provider Reason for Visit * Reason Onset Date Comments Anemia Follow-Up 09/02/2023 Encounter Details Date Type Department Care Team (Late st Contact Info) Description 09/02/2023 2:30 PM EDT Pharmacy Pharmacy, [place] [address], [place] [id number] Clinic, Anemia [address], [place] [id number] Iron deficiency anemia, unspecified iron deficiency anemia type* Allergies Active Allergy Reactions Criticality Noted Date Comments Penicillins Hives 03/16/2017 documented as of this encounter (statuses as of 09/02/2023) Medications Medication Sig Dispensed Refills Start Date [...] as of this encounter (statuses as of 09/02/2023) Active Problems Problem Noted Date Diagnosed Date [...] as of this encounter (statuses as of 09/02/2023) Resolved Problems Problem Noted Date Diagnosed Date [...] as of this encounter (statuses as of 09/02/2023) Immunizations Name Administration Dates Next Due COVID-19 [...] money to get more. Never true 06/02/2023 [place] Depression Scale Answer Date Recorded [place] Depression Scale Total 7 04/30/2023 The thought [...] as of this encounter Progress Notes * Gina Bonds RPh - 09/02/2023 10:15 AM EDT CBCd, ferritin, iron screen, retic panel, B12, FA ordered for 09/29/23. Gina Bonds PharmD, [facility] Clinical Pharmacist [facility] (P: [phone]) 09/02/2023 10:15 AM * Jocelyn Ojeda, utilities operator - 09/02/2023 9:44 AM EDT Patient Phone Numbers Call to patient to schedule labs. Patient received Infed on 08/27. Labs due on 09/28. GA: 32w0d Estimated Date of Delivery: 10/28/23 Pharmacist - please place appropriate lab orders. Thank you, Jocelyn Ojeda Director Of Residential Services [facility] 09/02/2023,9:45 AM documented in this encounter Plan of Treatment Upcoming Encounters Date Type Department Care Team (Late st Contact Info) Description 09/03/2023 8:00 AM EDT Imaging Maternal Medicine Sandra Coles [address] [place] [phone] 09/15/2023 8:30 AM EDT Office Visit Gynecology/Obstetrics May Slaughter [address] [place] [address] Dina Azul CRNP [address] [place] [address] 09/24/2023 8:00 AM EDT Imaging Maternal Medicine Sandra Coles [address] [place] [phone] 09/29/2023 8:00 AM EDT Office Visit Gynecology/Obstetrics May Slaughter [address] [facility] [place] [address] Destinee Robins CRNP 132 [facility] [place] [address] 09/30/2023 9:30 AM EDT Pharmacy Pharmacy, [place] [address] [place] [address] Clinic, Anemia [address] [place] [address] 10/22/2023 8:00 AM EDT Imaging Maternal Medicine Imaging, Sandra Slaughter 132 [facility] [place] [phone] Scheduled Orders Name Type Priority Associated Diagnoses Orde r Schedule CBC WITH WBC DIFFERENTIAL Lab Routine Iron deficiency anemia, unspecified iron deficiency anemia type Expected: 09/29/2023, Expires: 08/02/2024 IRON SCREEN, INCLUDING TIBC Lab Routine Iron deficiency anemia, unspecified iron deficiency anemia type Expected: 09/29/2023, Expires: 08/02/2024 FERRITIN Lab Routine Iron deficiency anemia, unspecified iron deficiency anemia type Expected: 09/29/2023, Expires: 08/02/2024 RETICULOCYTE PANEL Lab Routine Iron deficiency anemia, unspecified iron deficiency anemia type Expected: 09/29/2023, Expires: 08/02/2024 VITAMIN B12 Lab Routine Iron deficiency anemia, unspecified iron deficiency anemia type Expected: 09/29/2023, Expires: 08/02/2024 FOLIC ACID Lab Routine Iron deficiency anemia, unspecified iron deficiency anemia type Expected: 09/29/2023, Expires: 08/02/2024 Health Maintenance Due Date Last Done Comments [...] Primary documented in this encounter Care Teams Architecture Manager Relationship Specialty Start Date End Date Eli Junior MD [address] [place] [address] PCP - General Internal Medicine 04/08/21 documented as of this encounter
--- OUTSIDE RECORDS SUMMARY | 2023-11-04 14:18 | External Medical Summary | Summary of Care ---
Author Name Unknown Organization [facility] Address [address] [place] [address] Phone [phone] Care Team Providers Care Family Lawyer Name Role Phone Eli Junior MD Primary Care Provider Encounter Details Date Type Department Care Team (Late st Contact Info) Description 09/03/2023 8:00 AM EDT Office Visit Plant Sprayer Obstetrics Maternal Medicine, [facility] [address] [place] [address] Muriel Blackwell, DO [address] [place] [address] Primigravida of advanced maternal age in third trimester*; Ultrasound for screening for growth restriction; 32 weeks gestation of Allergies Active Allergy Reactions Criticality Noted Date [...] money to get more. Never true 06/02/2023 [place] Depression Scale Answer Date Recorded [place] Depression Scale Total 7 04/30/2023 The thought [...] as of this encounter Progress Notes * Muriel Blackwell, - 09/03/2023 8:49 AM EDT Eliceo presented today at 32w1d for an ultrasound for the following indications: Primigravida of advanced maternal age in third trimester Ultrasound for screening for growth restriction 32 weeks gestation of Ultrasound summary: Patient presented at 32w 1d for growth assessment. Normal growth with EFW 1752 g at 19%ile. Normal KIMBERLY at 17.8 cm. Cephalic presentation. Stable small fibroid. I reviewed the ultrasound images. Eliceo was given the opportunity to meet with me if she had any questions. Please refer to the ultrasound report for additional details about today's ultrasound examination. RECOMMENDATIONS: Follow up with MFM for ultrasound as clinically indicated. See prior formal MFM consultation note. Thank you for allowing us to participate in the care of this patient. Please call with any questions. Muriel Blackwell DO 09/03/2023 8:49 AM documented in this encounter Plan of Treatment Upcoming Encounters Date Type Department Care Team (Late st Contact Info) Description 09/15/2023 8:30 AM EDT Office Visit Gynecology/Obstetrics [address] [place] [address] Dina Azul CRNP [address] [place] [address] 09/24/2023 8:00 AM EDT [place] [address] 09/29/2023 8:00 AM EDT Office Visit Gynecology/Obstetrics May [place] [address] Destinee Robins CRNP [address] [facility] [address] 09/30/2023 9:30 AM EDT Pharmacy Pharmacy, [place] [address] [place] [address] Clinic, [facility] [address] [place] [address] 10/22/2023 8:00 AM EDT Imaging Maternal Medicine Imaging, [facility] [address] [facility] [phone] Health Maintenance Due Date Last Done Comments [...] as of this encounter Visit Diagnoses Diagnosis Primigravida of advanced maternal age in third trimester- Primary Ultrasound for screening for growth restriction screening for growth retardation using ultrasonics 32 weeks gestation of state, incidental documented in this encounter Care Teams Family Lawyer Relationship Specialty Start Date End Date Eli Junior MD [address] [place] [address] PCP - General Internal Medicine 04/08/21 documented as of this encounter
--- OUTSIDE RECORDS SUMMARY | 2023-11-04 14:19 | External Medical Summary | Summary of Care ---
Author Name Unknown Organization [facility] Address [address] [place] [address] Phone [phone] Care Team Providers Care Neurodiagnostic Tech Name Role Phone Eli Junior MD Primary Care Provider Reason for Visit * Reason Onset Date Comments Medication Management 08/20/2023 InFed Encounter Details Date Type Department Care Team (Late st Contact Info) Description 08/20/2023 Telephone Hematology/Oncology Treatment, [place] [address] [place] [address] Destinee Robins CRNP [address] [place] [address] Medication Management (InFed) Allergies Active Allergy Reactions Criticality Noted Date Comments Penicillins Hives 03/16/2017 documented as of this encounter (statuses as of 08/21/2023) Medications Medication Sig Dispensed Refills Start Date [...] as of this encounter (statuses as of 08/21/2023) Active Problems Problem Noted Date Diagnosed Date Iron deficiency anemia 08/19/2023 Antepartum anemia complicating 024 Overview: Recommend iron infusions Supervision of normal first 04/30/2023 AMA (advanced [...] as of this encounter (statuses as of 08/21/2023) Resolved Problems Problem Noted Date Diagnosed Date [...] as of this encounter (statuses as of 08/21/2023) Immunizations Name Administration Dates Next Due COVID-19 [...] money to get more. Never true 06/02/2023 [place] Depression Scale Answer Date Recorded [place] Depression Scale Total 7 04/30/2023 The thought [...] encounter Miscellaneous Notes * Telephone Encounter - Alley Palacios OSA - 08/21/2023 11:20 AM EDT lmom * Telephone Encounter - Corky Cage RN - 08/21/2023 10:49 AM EDT Orders are signed. Scheduling- please call patient to schedule 3 hour apt "Infed rapid" (ANGELICA Bauer). Thanks. * Telephone Encounter - Dina Hansen LPN - 08/20/2023 9:51 AM EDT Order received for InFed [place] plan built and routed to [place] [id number] No prior auth required Awaiting provider signature before scheduling patient documented in this encounter Plan of Treatment Upcoming Encounters Date Type Department Care Team (Late st Contact Info) Description 08/27/2023 10:00 AM EDT Pharmacy Pharmacy, [address] [address] Clinic, [address] [address] 09/01/2023 1:30 PM EDT Office Visit Gynecology/Obstetrics May Slaughter [address] [place] [address] Destinee Robins CRNP [address] [place] [address] 09/03/2023 8:00 AM EDT Imaging Maternal Medicine Imaging[facility] [address] [place] [phone] 09/15/2023 8:30 AM EDT Office Visit Gynecology/Obstetrics May Slaughter [address] [place] [address] [place], ANGELICA Talbert [address] [place] [address] 09/24/2023 8:00 AM EDT Imaging Maternal Medicine Imaging, Sandra Rosass [address] [place] [phone] 10/22/2023 8:00 AM EDT Imaging Maternal Medicine Imaging, [facility] [address] [place] [phone] Health Maintenance Due Date Last Done Comments [...] filedocumented as of this encounter Care Teams Neurodiagnostic Tech Relationship Specialty Start Date End Date Eli Junior MD [address] [place] [address] PCP - General Internal Medicine 04/08/21 documented as of this encounter
--- OUTSIDE RECORDS SUMMARY | 2023-11-04 14:19 | External Medical Summary | Summary of Care ---
Author Name Unknown Organization [facility] Address [address] [facility] [address] Phone [phone] Care Team Providers Care Bone Drier Operator Name Role Phone Eli Junior MD Primary Care Provider Encounter Details Date Type Department Care Team (Late st Contact Info) Description 08/19/2023 Orders Only Gynecology/Obstetrics [place] [facility] [address] [place] [address] Destinee Robins CRNP [address] [place] [address] Iron deficiency anemia, unspecified iron deficiency anemia type* Allergies Active Allergy Reactions Criticality Noted Date Comments Penicillins Hives 03/16/2017 documented as of this encounter (statuses as of 08/19/2023) Medications Medication Sig Dispensed Refills Start Date [...] as of this encounter (statuses as of 08/19/2023) Active Problems Problem Noted Date Diagnosed Date [...] as of this encounter (statuses as of 08/19/2023) Resolved Problems Problem Noted Date Diagnosed Date [...] as of this encounter (statuses as of 08/19/2023) Immunizations Name Administration Dates Next Due COVID-19 [...] money to get more. Never true 06/02/2023 [place] Depression Scale Answer Date Recorded [place] Depression Scale Total 7 04/30/2023 The thought [...] No 06/02/2023 Does the household have a [facility] source of income? (Household - for ages [...] Care Team (Late st Contact Info) Description 08/19/2023 4:00 PM EDT Pharmacy Pharmacy, [place] [address] [place] [address] Clinic, Anemia [address] [place] [address] Iron deficiency anemia, unspecified iron deficiency anemia type* 08/27/2023 10:00 AM EDT Pharmacy Pharmacy, [place] [address] [place] [address] Clinic, Anemia [address] [place] [address] 09/01/2023 1:30 PM EDT Office Visit Gynecology/Obstetric s May Slaughter [address] [place] [address] Destinee Robins CRNP [address] [place] [address] 09/03/2023 8:00 AM EDT Imaging Maternal Medicine Imaging, Sandra Slaughter [address] [place] [phone] 09/15/2023 8:30 AM EDT Office Visit Gynecology/Obstetric s May Slaughter [address] [place] [address] Dina Azul CRNP [address] [place] [address] 09/24/2023 8:00 AM EDT Imaging Maternal Medicine Imaging, Sandra Slaughter [address] [place] [phone] 10/22/2023 8:00 AM EDT Imaging Maternal Medicine Imaging, Sandra Slaughter [address] [place] [phone] Health Maintenance Due Date Last Done Comments [...] anemia, unspecified iron deficiency anemia type- Primary Iron deficiency anemia, unspecified iron deficiency anemia type- Primary documented in this encounter Care Teams Bone Drier Operator Relationship Specialty Start Date End Date Eli Junior MD [address] [place] [address] PCP - General Internal Medicine 04/08/21 documented as of this encounter
--- OUTSIDE RECORDS SUMMARY | 2023-11-04 14:19 | External Medical Summary | Summary of Care ---
Author Name Unknown Organization [facility] Address [address] [place] [address] Phone [phone] Care Team Providers Care Painter And Decorator Apprentice Name Role Phone Eli Junior MD Primary Care Provider Reason for Referral * (Within 10 days (routine)) Specialty Diagnoses / Procedures Referred By Neda t Referred To Contact Destinee Robins CRNP [address] [place] [address] Referral ID Status Reason Start Date Expiration Date Visits Re quested Visits Authorized Question Answer Referral Priority Within 10 days (routine) Where should this appointment be scheduled? [facility] Reason for Visit * Reason Onset Date Comments Test Results 08/05/2023 Anemia Encounter Details Date Type Department Care Team (Late st Contact Info) Description 08/05/2023 Telephone Gynecology/Obstetrics [facility] [address] [facility] [place] [address] Destinee Robins CRNP [address] [place] [address] Test Results (Anemia) Allergies Active Allergy Reactions Criticality Noted Date Comments Penicillins 03/16/2017 documented as of this encounter (statuses as of 08/05/2023) Medications Medication Sig Dispensed Refills Start Date [...] as of this encounter (statuses as of 08/05/2023) Active Problems Problem Noted Date Diagnosed Date Antepartum anemia complicating 024 Overview: Recommend iron [...] as of this encounter (statuses as of 08/05/2023) Resolved Problems Problem Noted Date Diagnosed Date [...] as of this encounter (statuses as of 08/05/2023) Immunizations Name Administration Dates Next Due COVID-19 [...] money to get more. Never true 06/02/2023 [place] Depression Scale Answer Date Recorded [place] Depression Scale Total 7 04/30/2023 The thought [...] encounter Miscellaneous Notes * Telephone Encounter - Destinee Robins CRNP - 08/05/2023 10:08 AM EDT Referral placed. * Telephone Encounter - Rosie Morris LPN - 08/05/2023 10:04 AM EDT Spoke to pt, verified. Message below reviewed and pt verbalized understanding. he is in agreement for referral. * Telephone Encounter - Destinee Robins CRNP - 08/05/2023 8:04 AM EDT Please notify pt that she passed her glucola but she is anemic. Recommend iron infusions at this time. If agreeable, please route back to me so I can place the referral. documented in this encounter Plan of Treatment Upcoming Encounters Date Type Department Care Team (Late st Contact Info) Description 08/19/2023 11:30 AM EDT Office Visit Gynecology/Obstetrics May Slaughter [address] [place] [address] Criselda Hansen PA-C [address] [place] [address] 09/03/2023 8:00 AM EDT Imaging Maternal Medicine Imaging, Sandra Slaughter [address] [place] [address] 09/24/2023 8:00 AM EDT Imaging Maternal Medicine Imaging, Sandra [place] [phone] 10/22/2023 8:00 AM EDT Imaging Maternal Medicine Imaging, Sandra Rosass [address] [place] [phone] Scheduled Referrals Name Type Priority Associated Diagnoses Orde r Schedule BLOOD MANAGEMENT REFERRAL Referral Within 10 days (routine) Antepartum anemia complicating Ordered: 08/05/2023 Health Maintenance Due Date Last Done Comments DTaP,Tdap,and Td Vaccines (1 - Tdap) 2005 Hepatitis B (1 of 3 - 19+ 3-dose series) 2005 Depression Screening 05/10/2022 05/10/2021 COVID-19 Vaccine ( season) 2022 02/15/2021, 06/12/2020, 05/13/2020 Influenza Vaccine (FLU shot) (Season Ended) 2023 Pap Smear 04/29/2026 04/30/2023, 03/12, 03/16/2017, Additional history exists Cervical Cancer Screening 04/29/2028 HPV/Co-Test 04/29/2028 04/30/2023 GARDASIL-HPV IMMUNIZATION SERIES Aged Out No longer eligible based on [...] as of this encounter Visit Diagnoses Diagnosis Antepartum anemia complicating - Primary Anemia, antepartum documented in this encounter Care Teams Painter And Decorator Apprentice Relationship Specialty Start Date End Date Eli Junior MD [address] [place] [address] PCP - General Internal Medicine 2/28/22 documented as of this encounter
--- OUTSIDE RECORDS SUMMARY | 2023-11-04 14:19 | External Medical Summary | Summary of Care ---
Author Name Unknown Organization [facility] Address [address] [place] [address] Phone [phone] Care Team Providers Care Shell Sieve Operator Name Role Phone Eli Junior MD Primary Care Provider Reason for Visit * Reason Comments IV Therapy Infed Encounter Details Date Type Department Care Team (Latest Contact Info) Description 08/28/2023 1:30 PM EDT Hem/Onc Treatment Hematology/Oncology Treatment, [place] [address] [place] [address] Iron deficiency anemia, unspecified iron [...] money to get more. Never true 06/02/2023 [place] Depression Scale Answer Date Recorded [place] Depression Scale Total 7 04/30/2023 The thought [...] this encounter Nursing Notes * Nara Jean Baptiste, RN - 08/28/2023 3:33 PM EDT Chair [...] Description 09/02/2023 2:30 PM EDT Pharmacy Pharmacy, [place] [address] [place] [facility] [address] Clinic, An[place] [address] [place] [address] 09/03/2023 8:00 AM EDT Imaging Maternal Medicine Imaging, [place] [phone] 09/15/2023 8:30 AM EDT Office Visit Gynecology/Obstetrics [place] [address] Dina Azul CRNP [address] [place] [address] 09/24/2023 8:00 AM EDT Imaging Maternal Medicine Imaging, Sandra Slaughter [address] [place] [phone] 09/29/2023 8:00 AM EDT Office Visit Gynecology/Obstetrics May Slaughter [address] [place] [address] Destinee Robins CRNP [address] [place] [address] 10/22/2023 8:00 AM EDT Imaging Maternal Medicine Imaging, Sandra Slaughter [address] [place] [phone] Health Maintenance Due Date Last Done Comments [...] mL/hr documented in this encounter Care Teams Shell Sieve Operator Relationship Specialty Start Date End Date Eli Junior MD [address] [place] [address] PCP - General Internal Medicine 04/08/21 documented as of this encounter
--- OUTSIDE RECORDS SUMMARY | 2023-11-04 14:19 | External Medical Summary | Summary of Care ---
Author Name Unknown Organization [facility] Address [address] [place] [address] Phone [phone] Care Team Providers Care Computer Operations Manager Name Role Phone Eli Junior MD Primary Care Provider Reason for Visit * Reason Comments IV Therapy Infed Encounter Details Date Type Department Care Team (Latest Contact Info) Description 08/28/2023 1:30 PM EDT Hem/Onc Treatment Hematology/Oncology Treatment, [place] [address] [place] [address] Iron deficiency anemia, unspecified iron deficiency anemia type* Allergies Active Allergy Reactions Criticality Noted Date Comments Penicillins Hives 03/16/2017 documented as of this encounter (statuses as of 08/28/2023) Medications Medication Sig Dispensed Refills Start Date [...] as of this encounter (statuses as of 08/28/2023) Active Problems Problem Noted Date Diagnosed Date [...] as of this encounter (statuses as of 08/28/2023) Resolved Problems Problem Noted Date Diagnosed Date [...] as of this encounter (statuses as of 08/28/2023) Immunizations Name Administration Dates Next Due COVID-19 [...] money to get more. Never true 06/02/2023 [place] Depression Scale Answer Date Recorded [place] Depression Scale Total 7 04/30/2023 The thought [...] No 06/02/2023 Does the household have a [facility] source of income? (Household - for ages [...] Care Team (Late st Contact Info) Description 09/01/2023 1:30 PM EDT Office Visit Gynecology/Obstetrics [place] Sl[place] [address] [place] [address] Destinee Robins CRNP [address] [place] [address] 09/02/2023 2:30 PM EDT Pharmacy Pharmacy, [place] [address] [place] [address] Clinic, [facility] [address] [place] [address] 09/03/2023 8:00 AM EDT Imaging Maternal Medicine Imaging, Sandra Slaughter [address] [place] [phone] 09/15/2023 8:30 AM EDT Office Visit Gynecology/Obstetrics May [address] [place] [address] [place], ANGELICA Talbert [address] [place] [address] 09/24/2023 8:00 AM EDT Imaging Maternal Medicine Imaging, Sandra [place] [phone] 10/22/2023 8:00 AM EDT Imaging Maternal Medicine Imaging, Sandra [address] [place] [phone] Health Maintenance Due Date Last Done Comments [...] Primary documented in this encounter Administered Medications Active Administered Medications - up to 3 most recent administrations Medication Order MAR Action Action Date Dose Rate Site EPINEPHrine 1 MG/ML inj 0.3 mg 0.3 mg, Intramuscular, ONCE PRN Other, Hypersensitivity Reaction or Anaphylaxis, Starting on Thu08/28/23 at 1343, Until 08/29/23 at 1342, For 24 hours Famotidine (Pepcid) inj 20 mg 20 mg, IV Push, ONCE PRN Other, Hypersensitivity Reaction, Starting on Thu08/28/23 at 1343, Until 08/29/23 at 1342, For 24 hours, Give IV push over 2 minutes. hEParin 100 UNIT/ML Lock Flush inj 500 Units 500 Units (5 mL), IV Lock, PRN Other, IV Flush, Starting on Thu08/28/23 at 1343, Until 08/29/23 at 1342, For 24 hours, Do not flush if lock, PICC, or central line not in place; IV infusing or unable to flush. Hydrocortisone Sod Suc (PF) (Solu-Cortef) inj 100 mg 100 mg, IV Push, ONCE PRN Other, Hypersensitivity Reaction, Starting on Thu08/28/23 at 1343, Until 08/29/23 at 1342, For 24 hours NSS infusion Intravenous, at 50 mL/hr, PRN, Starting on Thu08/28/23 at 1445, Until Discontinued, Maintenance line Start Infusion 08/28/2023 1:44 PM EDT 50 mL/hr oxygen GAS Inhalation, OXYGEN, First dose on Thu08/28/23 at 1600, Until Discontinued, Device/Managed by: Low Flow Device, Goal SPO2 (%): 91-95, Starting Device: Nasal Cannula, Initial Flow Rate (LPM): 2, Lowest Support: Nasal Cannula: Flow 0-6 LPM. Titrate up/down by 1 LPM., Higher Support: Non-Rebreather (NRB) Mask: Minimum of 10 LPM. Titrate to maintain bag inflation., Titration Interval: Q2 minutes and as needed., Notify Provider: For sudden DECREASE in resting SPO2 to less than 85% and when escalating delivery device., Wean patient off Oxygen when the oxygen saturation is greater than or equal to 93% sodium chloride 0.9 % flush central line 10 mL 10 mL, IV Push, PRN Other, IV Flush, Starting on Thu08/28/23 at 1343, Until 08/29/23 at 1342, For 24 hours, Do not flush if lock, PICC, or central line not in place; IV infusing or unable to flush. Inactive Administered Medications - up to 3 [...] Given 08/28/2023 1:50 PM EDT 25 mg documented in this encounter Care Teams Computer Operations Manager Relationship Specialty Start Date End Date Eli Junior MD [address] [facility] [place] [address] PCP - General Internal Medicine 04/08/21 documented as of this encounter
--- OUTSIDE RECORDS SUMMARY | 2023-11-04 14:19 | External Medical Summary | Summary of Care ---
Author Name Unknown Organization [facility] Address [address] [facility] [place] [address] Phone [phone] Care Team Providers Care Natural Resources Engineer Name Role Phone Eli Junior MD Primary Care Provider Reason for Visit * Reason Comments Return Visit Encounter Details Date Type Department Care Team (Late st Contact Info) Description 09/01/2023 1:30 PM EDT Office Visit Gynecology/Obstetric s May Slaughter [address] [place] [address] Destinee Robins CRNP [address] [facility] [place] [address] Primigravida of advanced maternal age in third trimester*; Encounter for supervision of normal first in third trimester; Uterine fibroid in ; Antepartum anemia complicating Allergies Active Allergy Reactions Criticality Noted Date Comments Penicillins Hives 03/16/2017 documented as of this encounter (statuses as of 09/01/2023) Medications Medication Sig Dispensed Refills Start Date [...] as of this encounter (statuses as of 09/01/2023) Active Problems Problem Noted Date Diagnosed Date [...] as of this encounter (statuses as of 09/01/2023) Resolved Problems Problem Noted Date Diagnosed Date [...] as of this encounter (statuses as of 09/01/2023) Immunizations Name Administration Dates Next Due COVID-19 [...] money to get more. Never true 06/02/2023 [place] Depression Scale Answer Date Recorded [place] Depression Scale Total 7 04/30/2023 The thought [...] Sign Reading Time Taken Comments Blood Pressure 104/64 09/01/2023 1:28 PM EDT Pulse - - Temperature - - Respiratory Rate - - Oxygen Saturation - - Inhaled Oxygen Concentration - - Weight 60.4 kg (133 lb 3.2 oz) 09/01/2023 1:28 P M EDT Height 162.6 cm (5' 4") 09/01/2023 1:28 PM EDT Body Mass Index 22.86 09/01/2023 1:28 PM EDT documented in this encounter Progress Notes * Destinee Robins CRNP - 09/01/2023 1:31 PM EDT 31w6d Complaints: none Feeling well overall. Good FM. No contractions, bleeding, or LOF. Had iron infusion last week. MFM appt for growth u/s later this week. ANGELICA Bailey documented in this encounter Nursing Notes * Alejandrina Lane RN - 09/01/2023 1:29 PM EDT Patient here for FERNANDO 31w6d No concerns + FM Alejandrina Lane RN documented in this encounter Plan of Treatment Upcoming Encounters Date Type Department Care Team (Late st Contact Info) Description 09/02/2023 2:30 PM EDT Pharmacy Pharmacy, [place] [address] [place] [address] Clinic, [facility] [address] [place] [address] 09/03/2023 8:00 AM EDT Imaging Maternal Medicine Imaging, [facility] [address] [place] [phone] 09/15/2023 8:30 AM EDT Office Visit Gynecology/Obstetrics May Slaughter [address] [place], [place] [address] Dina Azul CRNP [address] [place], [place] [address] 09/24/2023 8:00 AM EDT Imaging Maternal Medicine Imaging, Sandra Slaughter [address] [place] [phone] 09/29/2023 8:00 AM EDT Office Visit Gynecology/Obstetrics May Slaughter [address] [place] [address] Destinee Robins CRNP [address] [place] [address] 10/22/2023 8:00 AM EDT Imaging Maternal Medicine Imaging, Sandra Slaughter [address] [place] [phone] Health Maintenance Due Date Last Done Comments [...] advanced maternal age in third trimester- Primary Encounter for supervision of normal first in third trimester Supervision of normal first Uterine fibroid in Tumors of body of uterus, unspecified as to episode of care in Antepartum anemia complicating Anemia, antepartum documented in this encounter Care Teams Natural Resources Engineer Relationship Specialty Start Date End Date Eli Junior MD [address] [facility] [place] [address] PCP - General Internal Medicine 04/08/21 documented as of this encounter
--- OUTSIDE RECORDS SUMMARY | 2023-11-04 14:19 | External Medical Summary | Summary of Care ---
Author Name Unknown Organization [facility] Address [address] [place] [address] Phone [phone] Care Team Providers Care Semi Driver Name Role Phone Eli Junior MD Primary Care Provider Reason for Visit * Reason Onset Date Comments Anemia Follow-Up 08/19/2023 * Evaluate & Treat - Unlimited Visits (Within 3 days (urgent)) - Authorized Specialty Diagnoses / Procedures Referred By Contevaristo t Referred To Contact Pharmacist / Pharmacy Diagnoses Anemia in Destinee Robins CRNP [address] [place] [address] Referral ID Status Reason Start Date Expiration Date Visits Requested Visits Authorized [id number] Authorized Specialty Services Required 08/07/2023 02/03/2024 99 99 Encounter Details Date Type Department Care Team (Late st Contact Info) Description 08/19/2023 4:00 PM EDT Pharmacy Pharmacy, [place] [address] [place] [address] Clinic, An[place] [address] [place] [phone] Iron deficiency anemia, unspecified iron deficiency anemia [...] money to get more. Never true 06/02/2023 [place] Depression Scale Answer Date Recorded [place] Depression Scale Total 7 04/30/2023 The thought [...] as of this encounter Progress Notes * Verónica Perez RPh - 08/19/2023 3:08 PM EDT Patient Phone Numbers Patient referred by ANGELICA Bauer for evaluation of anemia by the Anemia Clinic. Called patient to introduce role/clinic and to review labs from 08/03. Hgb: 10.7 g/dL TSAT: 7 % Ferritin: 12 ng/mL GA: 30w0d Estimated Date of Delivery: 10/28/23 Hgb is below target range for the third trimester. Iron studies below target range. Patient reports feeling more tired than usual and otherwise denies signs/symptoms of anemia. Oral iron replenishment inadequate or contraindicated. Patient qualifies for IV iron repletion. Plan: Iron dextran (INFeD) 1000 mg IV x 1 dose. Orders placed and routed to [facility] at [facility]. Patient agreeable to intervention. Follow-up labs to be scheduled ~4-6 weeks after iron repletion completed if appropriate prior to delivery. Anemia Clinic will continue to follow. Thank you for allowing us to participate in the care of thispatient. Thanks, Verónica Perez [facility] Clinical Pharmacist [facility] (P: [phone]) 08/19/2023 3:18 PM documented in this encounter Plan of Treatment Upcoming Encounters Date Type Department Care Team (Late st Contact Info) Description 08/27/2023 10:00 AM EDT Pharmacy Pharmacy, [address] [address] Clinic, Anemia [address] [facility] [place] [address] 09/01/2023 1:30 PM EDT Office Visit Gynecology/Obstetrics May Slaughter [address] [place] [address] Destinee Robins CRNP [address] [place] [address] 09/03/2023 8:00 AM EDT Imaging Maternal Medicine Imaging, [place] [phone] 09/15/2023 8:30 AM EDT Office Visit Gynecology/Obstetrics May [address] [place] [address] BackerDina CRNP [address] [place] [address] 09/24/2023 8:00 AM EDT Imaging Maternal Medicine Imaging, Sandra [place] [phone] 10/22/2023 8:00 AM EDT Imaging Maternal Medicine Imaging, Sandra [place] [phone] Scheduled Referrals Name Type Priority Associated Diagnoses [...] Primary documented in this encounter Care Teams Semi Driver Relationship Specialty Start Date End Date Eli Junior MD [address] [place] [address] PCP - General Internal Medicine 04/08/21 documented as of this encounter
--- OUTSIDE RECORDS SUMMARY | 2023-11-04 14:19 | External Medical Summary | Summary of Care ---
Author Name Unknown Organization [facility] Address [address] [place] [address] Phone [phone] Care Team Providers Care Vapor Coater Name Role Phone Eli Junior MD Primary Care Provider Reason for Visit * Reason Comments Blood Management Program Encounter Details Date Type Department Care Team (Late st Contact Info) Description 08/05/2023 Documentation Patient Blood Management, [facility] [address] [place] [address] Shaun Alonzo RN Allergies Active Allergy Reactions Criticality Noted Date Comments Penicillins 03/16/2017 documented as of this encounter (statuses as of 08/07/2023) Medications Medication Sig Dispensed Refills Start Date [...] as of this encounter (statuses as of 08/07/2023) Active Problems Problem Noted Date Diagnosed Date [...] as of this encounter (statuses as of 08/07/2023) Resolved Problems Problem Noted Date Diagnosed Date [...] as of this encounter (statuses as of 08/07/2023) Immunizations Name Administration Dates Next Due COVID-19 [...] money to get more. Never true 06/02/2023 [place] Depression Scale Answer Date Recorded [place] Depression Scale Total 7 04/30/2023 The thought [...] as of this encounter Progress Notes * Shaun Alonzo, CELESTINO - 08/05/2023 7:52 PM EDT REFERRAL - Patient Blood Management Name: Eliceo Phanbilly RE[place]ING [place]ICE: [facility] REASON FOR REFERRAL: new evaluation outpatient, Anemia in Anemia Evaluation: Latest Reference Range & Units 08/04/23 14:44 WBC 4.00 - 10.80 K/uL 8.20 RBC 3.85 - 5.15 M/uL 3.83 HGB 12.0 - 15.3 g/dL 10.7 (L) HCT 36.0 - 45.2 % 32.5 (L) MCV 81.5 - 97.5 fL 84.9 MCH 27.0 - 34.0 pg 27.9 MCHC 32.0 - 36.0 g/dL 32.9 RDW 11.5 - 15.5 % 12.3 PLT 140 - 400 K/uL 333 MPV 6.6 - 11.1 fL 8.8 Iron 33 - 151 ug/dL 38 Iron Binding Capacity 250 - 425 ug/dL 564 (H) Transferrin Saturation Percent 15 - 55 % 7 (L) Ferritin 13 - 150 ng/mL 12 (L) Immature Reticuloctye Fraction 2.5 - 20.6 % 25.0 (H) Reticulocyte Hemoglobin 29.7 - 37.4 pg 27.4 (L) Absolute Reticulocyte 31.3 - 100.1 K/uL 76.6 Reticulocyte Percent 0.80 - 1.90 % 2.01 (H) (L): Data is abnormally low (H): Data is abnormally high Current Patient Medications: Medications that may impair hemostasis: None Medications that may impair iron absorption: None Patient Refused Blood Transfusion? (e.g. Lutheran): no Possible Contributing Factors: iron deficiency Treatment Recommendations: Recommend Venofer IV per OB MTM Protocol Pt. Agreeable to IV iron at [facility] Follow-up Recommendations: Follow up with PCP for further assessment/management of anemia post discharge. 08/04 - called pt Thank you for allowing Blood Management to participate in the care of this patient. documented in this encounter Plan of Treatment Upcoming Encounters Date Type Department Care Team (Late st Contact Info) Description 08/19/2023 11:30 AM EDT Office Visit Gynecology/Obstetrics [address] [place] [address] Criselda Hansen PA-C [address] [place] [address] 09/03/2023 8:00 AM EDT Imaging Maternal Medicine Imaging, Sandra Slaughter [address] [place] [phone] 09/24/2023 8:00 AM EDT Imaging Maternal Medicine Imaging, Sandra Slaughter [address] [place] [phone] 10/22/2023 8:00 AM EDT Imaging Maternal Medicine Imaging, Sandra Slaughter [address] [place] [phone] Health Maintenance Due Date Last Done Comments [...] filedocumented as of this encounter Care Teams Vapor Coater Relationship Specialty Start Date End Date Eli Junior MD [address] [place] [address] PCP - General Internal Medicine 04/08/21 documented as of this encounter
--- OUTSIDE RECORDS SUMMARY | 2023-11-04 14:19 | External Medical Summary | Summary of Care ---
Author Name Unknown Organization [facility] Address [address] [place] [address] Phone [phone] Care Team Providers Care Dopeman Name Role Phone Eli Junior MD Primary Care Provider Reason for Visit * Reason Onset Date Comments Medication Management 08/20/2023 InFed Encounter Details Date Type Department Care Team (Late st Contact Info) Description 08/20/2023 Telephone Hematology/Oncology Treatment, [place] [address] [place] [address] Destinee Robins CRNP [address] [place] [address] Medication Management (InFed) Allergies Active Allergy Reactions Criticality Noted Date Comments Penicillins Hives 03/16/2017 documented as of this encounter (statuses as of 08/24/2023) Medications Medication Sig Dispensed Refills Start Date [...] as of this encounter (statuses as of 08/24/2023) Active Problems Problem Noted Date Diagnosed Date [...] as of this encounter (statuses as of 08/24/2023) Resolved Problems Problem Noted Date Diagnosed Date [...] as of this encounter (statuses as of 08/24/2023) Immunizations Name Administration Dates Next Due COVID-19 [...] money to get more. Never true 06/02/2023 [place] Depression Scale Answer Date Recorded [place] Depression Scale Total 7 04/30/2023 The thought [...] Telephone Encounter - Alley Palacios OSA - 08/24/2023 8:35 AM EDT Apt scheduled Pt aware * Telephone Encounter - Alley Palacios OSA - 08/21/2023 11:20 AM EDT lmom * Telephone Encounter - Corky Cage RN - 08/21/2023 10:49 AM EDT Orders are signed. Scheduling- please call patient to schedule 3 hour apt "Infed rapid" (ANGELICA Bauer). Thanks. * Telephone Encounter - Dina Hansen LPN - 08/20/2023 9:51 AM EDT Order received for InFed [place] plan [place] [phone] No prior auth required Awaiting provider signature before scheduling patient documented in this encounter Plan of Treatment Upcoming Encounters Date Type Department Care Team (Late st Contact Info) Description 08/27/2023 10:00 AM EDT Pharmacy Pharmacy, [place] [address] [place] [address] Clinic, Anemia [address] [place] [address] 08/28/2023 1:30 PM EDT Hem/Onc Treatment Hematology/Oncology Treatment, [place] [address] [place] [phone] 09/01/2023 1:30 PM EDT Office Visit Gynecology/Obstetrics [address] [place] [address] Destinee Robins CRNP [address] [place] [address] 09/03/2023 8:00 AM EDT Imaging Maternal Medicine Imaging, Sandra Slaughter [address] [place] [phone] 09/15/2023 8:30 AM EDT Office Visit Gynecology/Obstetrics May Slaughter [address] [place] [address] Backer, ANGELICA Talbert [address] [place] [address] 09/24/2023 8:00 AM EDT Imaging Maternal Medicine Imaging, Sandra Craft [place] [phone] 10/22/2023 8:00 AM EDT Imaging Maternal Medicine Imaging, Sandra [place] [phone] Health Maintenance Due Date Last Done Comments [...] filedocumented as of this encounter Care Teams Dopeman Relationship Specialty Start Date End Date Eli Junior MD [address] [place] [address] PCP - General Internal Medicine 04/08/21 documented as of this encounter
--- OUTSIDE RECORDS SUMMARY | 2023-11-04 14:19 | External Medical Summary | Summary of Care ---
Author Name Unknown Organization [facility] Address [address] [place] [address] Phone [phone] Care Team Providers Care Motor Grader Operator Name Role Phone Eli Junior MD Primary Care Provider Encounter Details Date Type Department Care Team (Late st Contact Info) Description 08/20/2023 Orders Only Pharmacy, [place] [address] [place], [place] [id number] [facility] [address] [place] [address] Allergies Active Allergy Reactions Criticality Noted Date Comments Penicillins Hives 03/16/2017 documented as of this encounter (statuses as of 08/20/2023) Medications Medication Sig Dispensed Refills Start Date [...] as of this encounter (statuses as of 08/20/2023) Active Problems Problem Noted Date Diagnosed Date [...] as of this encounter (statuses as of 08/20/2023) Resolved Problems Problem Noted Date Diagnosed Date [...] as of this encounter (statuses as of 08/20/2023) Immunizations Name Administration Dates Next Due COVID-19 [...] money to get more. Never true 06/02/2023 [place] Depression Scale Answer Date Recorded [place] Depression Scale Total 7 04/30/2023 The thought [...] No 06/02/2023 Does the household have a [facility] source of income? (Household - for [...] Description 08/27/2023 10:00 AM EDT Pharmacy Pharmacy, [place] [address] [place] [address] Clinic, [facility] [address] [place] [address] 09/01/2023 1:30 PM EDT Office Visit Gynecology/Obstetrics May [place] [address] [place] [address] Destinee Robins CRNP [address] [place] [address] 09/03/2023 8:00 AM EDT Imaging Maternal Medicine Imaging, Sandra [place]ra [address] [place] [phone] 09/15/2023 8:30 AM EDT Office Visit Gynecology/Obstetrics May Rosasnarendra [address] [place] [address] Dina Azul CRNP [address] [place] [address] 09/24/2023 8:00 AM EDT Imaging Maternal Medicine Imaging, Sandra Rosasnarendra [address] [place] [phone] 10/22/2023 8:00 AM EDT Imaging Maternal Medicine Imaging, Sandra [address] [place] [phone] Health Maintenance Due Date Last Done Comments [...] filedocumented as of this encounter Care Teams Motor Grader Operator Relationship Specialty Start Date End Date Eli Junior MD [address] [place] [address] PCP - General Internal Medicine 04/08/21 documented as of this encounter
--- OUTSIDE RECORDS SUMMARY | 2023-11-04 14:19 | External Medical Summary | Summary of Care ---
Author Name Unknown Organization [facility] Address [address] [facility] [place] [address] Phone [phone] Care Team Providers Care Social Worker Psychiatric Name Role Phone Eli Junior MD Primary Care Provider Reason for Visit * Reason Comments Return Visit Encounter Details Date Type Department Care Team (Late st Contact Info) Description 08/19/2023 11:30 AM EDT Office Visit Gynecology/Obstetric s May Slaughter [address] [place] [address] Criselda Hansen PA-C [address] [place] [address] Encounter for supervision of normal first in third trimester*; Primigravida of advanced maternal age in third trimester; Uterine fibroid in ; Antepartum anemia complicating ; Need for nysfxcrdtl-decgqhw-mw rtussis (Tdap) vaccine Allergies Active Allergy Reactions Criticality Noted Date [...] money to get more. Never true 06/02/2023 [place] Depression Scale Answer Date Recorded [place] Depression Scale Total 7 04/30/2023 The thought [...] Reading Time Taken Comments Blood Pressure 98/62 08/19/2023 11:37 AM EDT Pulse - - Temperature - - Respiratory Rate - - Oxygen Saturation - - Inhaled Oxygen Concentration - - Weight 60 kg (132 lb 3.2 oz) 08/19/2023 11:37 AM EDT Height - - Body Mass Index 22.69 04/24/2023 10:35 AM EDT documented in this encounter Progress Notes * Criselda Hansen PA-C - 08/19/2023 12:36 PM EDT 30w0d Denies VB, LOF, contractions. Pos fm. Woke up with some low back pain. No CVA tenderness, unsure if slept on back wrong. Denies contractions. Reviewed Tylenol, warm shower, gentle stretching, belly support band. Accepts TDaP, given. RTC in 2 weeks Criselda Hansen PA-C * Domenica Castanon MED ASSIST - 08/19/2023 11:37 AM EDT 30w0d Denies vaginal bleeding/rom + movements Agreeable to TDAP today documented in this encounter Plan of Treatment Upcoming Encounters Date Type Department Care Team (Late st Contact Info) Description 08/19/2023 4:00 PM EDT Pharmacy Pharmacy, [place] [address] [facility] [place] [address] Clinic, [facility] [address] [facility] [place] [address] 09/01/2023 1:30 PM EDT Office Visit Gynecology/Obstetrics [address] [place] [address] Destinee Robins CRNP [address] [address] 09/03/2023 8:00 AM EDT Imaging Maternal Medicine Imaging, Sandra Roberto [place] [phone] 09/15/2023 8:30 AM EDT Office Visit Gynecology/Obstetrics May [address] [place] [address] Dina Azul CRNP [address] [place] [address] 09/24/2023 8:00 AM EDT Imaging Maternal Medicine Imaging, Sandra Craft [place] [phone] 10/22/2023 8:00 AM EDT Imaging Maternal Medicine Imaging, Sandra [address] [place] [phone] Health Maintenance Due Date Last Done Comments [...] care in Antepartum anemia complicating Anemia, antepartum Need for kfgpwylozj-pvhhkiv-lfyptubwk (Tdap) vaccine Need for prophylactic vaccination with combined luyljdshqw-wvsmauy-ccvbkljbo (DTP) vaccine documented in this encounter Care Teams Social Worker Psychiatric Relationship Specialty Start Date End Date Eli Junior MD [address] [place] [address] PCP - General Internal Medicine 04/08/21 documented as of this encounter
--- OUTSIDE RECORDS SUMMARY | 2023-11-04 14:20 | External Medical Summary ---
Author Name Unknown Address Unknown Organization [id number]:[facility] - [address] [place] [address] Laboratory Report Ordering Provider Test Date Status JENNIFER RAMIREZ 08/04/2023 14:44:55 Final Observation Date Value Abnormality Reference (Units ) Status Retic, % (auto) 08/04/2023 14:44:55 2.01 Above high normal 0.80-1.90 (%) Final Reticulocytes, Absolute 08/04/2023 14:44:55 76.6 31.3-100.1 (K/uL) Final Reticulocyte fraction, immature 08/04/2023 14:44:55 25.0 Above high normal 2.5-20.6 (%) Final Reticulocyte HGB 08/04/2023 14:44:55 27.4 Below low normal 29.7-37.4 (pg) Final Performing Location [facility] - [address] [place] [address]
--- OUTSIDE RECORDS SUMMARY | 2023-11-04 14:20 | External Medical Summary ---
Author Name Unknown Address Unknown Organization [id number]:[facility] [place] [address] [place] [address] Laboratory Report Ordering Provider Test Date Status ASHLEYJENNIFER 08/04/2023 14:44:55 Final Observation Date Value Abnormality Reference (Units ) Status Iron 08/04/2023 14:44:55 38 33-151 (ug/dL) Final Iron-binding capacity 08/04/2023 14:44:55 564 Above high normal 250-425 (ug/dL) Final Transferrin Sat % 08/04/2023 14:44:55 7 Below low normal 15-55 (%) Final Performing Location [facility] - [address] [place] [address]
--- OUTSIDE RECORDS SUMMARY | 2023-11-04 14:20 | External Medical Summary | Summary of Care ---
Author Name Unknown Organization [facility] Address [address] [facility] [place] [address] Phone [phone] Care Team Providers Care Sharemilker Name Role Phone Eli Junior MD Primary Care Provider Reason for Visit * Reason Comments Return Visit Encounter Details Date Type Department Care Team (Late st Contact Info) Description 08/04/2023 1:45 PM EDT Office Visit Gynecology/Obstetric s [facility] Slaughter [address] [place] [address] Dina Azul CRNP [address] [place] [address] Encounter for supervision of normal first in second trimester*; Primigravida of advanced maternal age in second trimester; Uterine fibroid in Allergies Active Allergy Reactions Criticality Noted Date Comments Penicillins 03/16/2017 documented as of this encounter (statuses as of 08/04/2023) Medications Medication Sig Dispensed Refills Start Date [...] as of this encounter (statuses as of 08/04/2023) Active Problems Problem Noted Date Diagnosed Date Supervision of normal first 04/30/2023 AMA (advanced [...] as of this encounter (statuses as of 08/04/2023) Resolved Problems Problem Noted Date Diagnosed Date [...] as of this encounter (statuses as of 08/04/2023) Immunizations Name Administration Dates Next Due COVID-19 [...] money to get more. Never true 06/02/2023 [place] Depression Scale Answer Date Recorded [place] Depression Scale Total 7 04/30/2023 The thought [...] Sign Reading Time Taken Comments Blood Pressure 96/58 08/04/2023 1:42 PM EDT Pulse - - Temperature - - Respiratory Rate - - Oxygen Saturation - - Inhaled Oxygen Concentration - - Weight 60.8 kg (134 lb) 08/04/2023 1:42 PM EDT Height - - Body Mass Index 23 04/24/2023 10:35 AM EDT documented in this encounter Progress Notes * Rosie Morris LPN - 08/04/2023 1:42 PM EDT 27w6d Denies vaginal bleeding/rom + movement Gtt today Declines tdap today- maybe next visit * Dina Azul CRNP - 08/04/2023 1:40 PM EDT 27w6d Labs today. Counseled on Tdap, may accept at next visit. No ctx, bleeding, leaking. Baby moving. Discussed movement counts and when to call. Growth scan with MFM last week: EFW 55th %ile, normal kidneys. Has a hospital tour and childbirth classes scheduled. 2 week return ANGELICA Hughes documented in this encounter Plan of Treatment Upcoming Encounters Date Type Department Care Team (Late st Contact Info) Description 08/19/2023 11:30 AM EDT Office Visit Gynecology/Obstetrics [facility] Slaughter [address] [place] [address] Criselda Hansen PA-C [address] [place] [address] 09/03/2023 8:00 AM EDT [place] [address] 09/24/2023 8:00 AM [place] [address] 10/22/2023 8:00 AM EDT Imaging Maternal Medicine Imaging, [place] [facility] [address] [place] [phone] Health Maintenance Due Date Last Done Comments DTaP,Tdap,and Td Vaccines (1 - Tdap) 2005 Hepatitis B (1 of 3 - 19+ 3-dose series) 2005 Depression Screening 05/10/2022 05/10/2021 COVID-19 Vaccine (4 - season) 2022 02/15/2021, 06/12/2020, 05/13/2020 Influenza Vaccine [...] Encounter for supervision of normal first in second trimester- Primary Supervision of normal first Primigravida of advanced maternal age in second trimester Uterine fibroid in Tumors of body of uterus, unspecified as to episode of care in documented in this encounter Care Teams Sharemilker Relationship Specialty Start Date End Date Eli Junior MD [address] [address] PCP - General Internal Medicine 04/08/21 documented as of this encounter
--- OUTSIDE RECORDS SUMMARY | 2023-11-04 14:20 | External Medical Summary ---
Author Name Unknown Address Unknown Organization K01:[facility] [address] [place] [address] Laboratory Report Ordering Provider Test Date Status JENNIFER RAMIREZ 08/04/2023 14:44:55 Final Observation Date Value Abnormality Reference (Units ) Status Ferritin 08/04/2023 14:44:55 12 Below low normal 13- 150 (ng/mL) Final Performing Location [facility] [address] [place] [address]
--- OUTSIDE RECORDS SUMMARY | 2023-11-04 14:20 | External Medical Summary | Summary of Care ---
Author Name Unknown Organization [facility] Address [address] [facility] [place] [address] Phone [phone] Care Team Providers Care Home Health Care Provider Name Role Phone Eli Junior MD Primary Care Provider Reason for Visit * Reason Comments Return Visit Encounter Details Date Type Department Care Team (Late st Contact Info) Description 05/26/2023 11:45 AM EDT Office Visit Gynecology/Obstetric s May Slaughter [address] [place] [address] Dina Azul CRNP [address] [place] [address] Encounter for supervision of normal first in second trimester*; Primigravida of advanced maternal age in second trimester; Uterine fibroid in ; Encounter for supervision of normal in second trimester, unspecified Allergies Active Allergy Reactions Criticality Noted Date Comments Penicillins 03/16/2017 documented as of this encounter (statuses as of 05/26/2023) Medications Medication Sig Dispensed Refills Start Date End Date Status Probiotic 250 MG Oral Capsule Take by mouth. 0 Active valACYclovir HCl 1 GM Oral Tablet (Valtrex)Indications: Herpes labialis Take 2 Tablets by mouth in the morning and 2 Tablets before bedtime. For 1 day for cold sores. 12 Tablet 5 03/03/2023 Active 28-0.8 MG Oral Tablet Take by mouth. 0 Active documented as of this encounter (statuses as of 05/26/2023) Active Problems Problem Noted Date Diagnosed Date Supervision of normal first 04/30/2023 AMA (advanced maternal age) primigravida 35+ Uterine fibroid in 04/30/2023 Overview: A subserosal fibroid is seen in the left anterior uterus, measuring 2.8 x 3.1 x 3.2 cm. COVID-19 virus infection 11/20/2021 Overview: 11/08/21 Estimated Date of Delivery Comme nts Yes 10/28/2023 Based on Ultraso und documented as of this encounter (statuses as of 05/26/2023) Immunizations Name Administration Dates Next Due COVID-19 [...] the money to buy more. Never true 11/11/19 23 Within the past 12 months, t he food you bought just didn't last and you didn't have money to get more. Never true 11/10/2022 [place] Depression Scale Answer Date Recorded [place] Depression Scale Total 7 04/30/2023 The thought of harming myself has occurred to me . Never 04/30/2023 Estimated Date of Delivery Comme nts Yes [...] Reading Time Taken Comments Blood Pressure 96/58 05/26/2023 11:41 AM EDT Pulse - - Temperature - - Respiratory Rate - - Oxygen Saturation - - Inhaled Oxygen Concentration - - Weight 54.3 kg (119 lb 12.8 oz) 024 11:41 AM EDT Height - - Body Mass Index 20.56 04/24/2023 10:35 AM EDT documented in this encounter Progress Notes * Rosie Morris LPN - 05/26/2023 11:42 AM EDT 17w6d Denies vaginal bleeding/rom Absent movement Constipation * Dina Azul CRNP - 05/26/2023 11:41 AM EDT 17w6d Doing well, no movement yet. Denies cramping/bleeding. Reviewed OTC remedies for constipation. Low risk Qnatal. Discussed MSAFP and role in screening for ONTD; she will consider. Discussed completing this by 23 weeks if desired. Anatomy scan at 20 weeks. ANGELICA Hughes documented in this encounter Plan of Treatment Upcoming Encounters Date Type Department Care Team (Late st Contact Info) Description 06/16/2023 10:30 AM EDT Imaging Radiology [facility] [address] [place] [address] 06/16/2023 11:30 AM EDT Office Visit Gynecology/Obstetrics [facility] [address] [place] [address] Dina Azul CRNP [address] [place] [address] Scheduled Orders Name Type Priority Associated Diagnoses Orde r Schedule US PREG SINGLE/1ST GEST, 14 WEEKS OR LATER Medical Imaging Routine Encounter for supervision of normal first in second trimester Encounter for supervision of normal in second trimester, unspecified Expected: 06/10/2023 (Approximate), Expires: 06/24/2024 Health Maintenance Due Date Last Done Comments [...] Diagnoses Diagnosis Encounter for supervision of normal in second trimester, unspecified Primigravida of advanced maternal age in second trimester Uterine fibroid in Tumors of body of uterus, unspecified as to episode of care in documented in this encounter Care Teams Home Health Care Provider Relationship Specialty Start Date End Date Eli Junior MD [address] [place] [address] PCP - General Internal Medicine 04/08/21 documented as of this encounter
--- OUTSIDE RECORDS SUMMARY | 2023-11-04 14:20 | External Medical Summary | Summary of Care ---
Author Name Unknown Organization [facility] Address [address] [place] [address] Phone [phone] Care Team Providers Care Sole Layer Name Role Phone Eli Junior MD Primary Care Provider Reason for Visit * Reason Comments Outpatient Testing Encounter Details Date Type Department Care Team (Late st Contact Info) Description 08/04/2023 1:40 PM EDT Laboratory Laboratory, [facility] [address] [place] [address] [facility] [address] [place] [address] Encounter for supervision of normal first in second trimester Allergies Active Allergy Reactions Criticality Noted Date [...] money to get more. Never true 06/02/2023 [place] Depression Scale Answer Date Recorded [place] Depression Scale Total 7 04/30/2023 The thought [...] 08/19/2023 11:30 AM EDT Office Visit Gynecology/Obstetrics [facility] [address] [facility] [place] [address] Criselda Hansen PA-C [address] [place] [address] 09/03/2023 8:00 AM EDT Imaging Maternal Medicine Imaging, [place] [phone] 09/24/2023 8:00 AM EDT Imaging Maternal Medicine Imaging, [place] [address] [place] [phone] 10/22/2023 8:00 AM EDT Imaging Maternal Medicine Imaging, [place] [phone] Pending Results Name Type Priority Associated Diagnoses Date /Time 50-G GESTATIONAL GLUCOSE, 1 HOUR Lab Routine Encounter for supervision of normal first in second trimester 08/04/2023 2:44 PM EDT SYPHILIS ANTIBODY SCREEN WITH REFLEX TO RPR Lab Routine Encounter for supervision of normal first in second trimester 08/04/2023 2:44 PM EDT CBC WITH WBC DIFFERENTIAL AND ANEMIA REFLEX WORKUP Lab Routine Encounter for supervision of normal first in second trimester 08/04/2023 2:44 PM EDT SYPHILIS ANTIBODY SCREEN Lab Routine Encounter for supervision of normal first in second trimester 08/04/2023 2:44 PM EDT ANEMIA CBC Lab Routine Encounter for supervision of normal first in second trimester 08/04/2023 2:44 PM EDT DIFFERENTIAL, AUTOMATED Lab Routine Encounter for supervision of normal first in second trimester 08/04/2023 2:44 PM EDT ANEMIA REFLEX CHEMISTRY HOLD Lab Routine Encounter for supervision of normal first in second trimester 08/04/2023 2:44 PM EDT Health Maintenance Due Date Last Done [...] supervision of normal first in second trimester Supervision of normal first documented in this encounter Care Teams Sole Layer Relationship Specialty Start Date End Date Eli Junior MD [address] [facility] [place] [address] PCP - General Internal Medicine 04/08/21 documented as of this encounter
--- OUTSIDE RECORDS SUMMARY | 2023-11-04 14:20 | External Medical Summary | Summary of Care ---
Author Name Unknown Organization [facility] Address [address] [facility] [place] [address] Phone [phone] Care Team Providers Care Earth Science Professor Name Role Phone Eli Junior MD Primary Care Provider Reason for Visit * Reason Comments Return Visit Encounter Details Date Type Department Care Team (Late st Contact Info) Description 07/15/2023 9:45 AM EDT Office Visit Gynecology/Obstetric s May Slaughter [address] [place] [address] Destinee Robins CRNP [address] [place] [address] Encounter for supervision of normal first in second trimester*; Primigravida of advanced maternal age in second trimester; Uterine fibroid in Allergies Active Allergy Reactions Criticality Noted Date Comments Penicillins 03/16/2017 documented as of this encounter (statuses as of 07/15/2023) Medications Medication Sig Dispensed Refills Start Date [...] as of this encounter (statuses as of 07/15/2023) Active Problems Problem Noted Date Diagnosed Date renal anomaly, single gestation 07/01/2023 Last Assessment & Plan: I reviewed the ultrasound with her. The anatomy that was visualized appears unremarkable, with the exception of bilateral urinary tract dilation. The right and left ureters measure 4.4 and 4.3 cm, respectively. The bladder appears normal and the amniotic fluid volume is subjectively normal. There is an anterior left fibroid present that measures 5.1 cm in its largest diameter. The biometrics are appropriate for the gestational age and the overall estimated weight is consistent with the 20th percentile for the gestational age. I reviewed her low risk noninvasive screening in light of the urinary tract dilation. We discussed the many causes of urinary tract dilation, including physiologic, bladder reflux and some type of stenosis/narrowing of the ureter. Supervision of normal first 04/30/2023 AMA (advanced [...] as of this encounter (statuses as of 07/15/2023) Immunizations Name Administration Dates Next Due COVID-19 [...] money to get more. Never true 06/02/2023 [place] Depression Scale Answer Date Recorded [place] Depression Scale Total 7 04/30/2023 The thought [...] Sign Reading Time Taken Comments Blood Pressure 96/56 07/15/2023 9:47 AM EDT Pulse - - Temperature - - Respiratory Rate - - Oxygen Saturation - - Inhaled Oxygen Concentration - - Weight 57.6 kg (127 lb) 07/15/2023 9:47 AM EDT Height - - Body Mass Index 21.8 04/24/2023 10:35 AM EDT documented in this encounter Progress Notes * Destinee Robins CRNP - 07/15/2023 10:02 AM EDT 25w Feeling well. Baby is active. Denies contractions, bleeding, LOF. Following with MFM. Glez with next visit. ANGELICA Bailey * Domenica Castanon MED ASSIST - 07/15/2023 9:47 AM EDT 25w0d No concerns Vaginal bleeding: no ROM: no movement: present Contractions: no Nausea: no Vomiting: no Headaches: no documented in this encounter Plan of Treatment Upcoming Encounters Date Type Department Care Team (Late st Contact Info) Description 07/29/2023 3:00 PM EDT Office Visit Upholstery Department Supervisor Obstetrics Maternal Medicine, [address] [place] [address] Andrez Alberts MD [address] [place] [address] 07/29/2023 3:00 PM EDT Imaging Radiology [facility], [place] [address] [place] [address] 08/04/2023 1:40 PM EDT Laboratory Laboratory, [facility] [address] [place] [phone] [facility] [place] [address] 08/04/2023 1:45 PM EDT Office Visit Gynecology/Obstetrics May Slaughter [address] [place] [address] Dina Azul CRNP [address] [place] [address] 09/03/2023 8:00 AM EDT Imaging Maternal Medicine Imaging, [place] [phone] 09/24/2023 8:00 AM EDT Imaging Maternal Medicine Imaging, [place] [address] [place] [phone] 10/22/2023 8:00 AM EDT Imaging Maternal Medicine Imaging, [place] [phone] Scheduled Orders Name Type Priority Associated Diagnoses Orde r Schedule 50-G GESTATIONAL GLUCOSE, 1 HOUR Lab Routine Encounter for supervision of normal first in second trimester Expected: 08/05/2023 (Approximate), Expires: 07/14/2024 SYPHILIS ANTIBODY SCREEN WITH REFLEX TO RPR Lab Routine Encounter for supervision of normal first in second trimester Expected: 08/05/2023 (Approximate), Expires: 07/14/2024 CBC WITH WBC DIFFERENTIAL AND ANEMIA REFLEX WORKUP Lab Routine Encounter for supervision of normal first in second trimester Expected: 08/05/2023 (Approximate), Expires: 07/14/2024 Health Maintenance Due Date Last Done Comments [...] in documented in this encounter Care Teams Earth Science Professor Relationship Specialty Start Date End Date Eli Junior MD [address] [facility] [place] [address] PCP - General Internal Medicine 04/08/21 documented as of this encounter
--- OUTSIDE RECORDS SUMMARY | 2023-11-04 14:20 | External Medical Summary | Summary of Care ---
Author Name Unknown Organization [facility] Address [address] [place] [address] Phone [phone] Care Team Providers Care Six Pack Packer Name Role Phone Eli Junior MD Primary Care Provider Reason for Visit * Reason Comments Ultrasound * Evaluate & Treat - Unlimited Visits (Within 10 days (routine)) - Pending Review Specialty Diagnoses / Procedures Referred By Neda sepulveda Referred To Contact Obstetrics/Gynecology / Maternal Medicine Diagnoses Primigravida of advanced maternal age in second trimester Encounter for supervision of normal first in second trimester Uterine fibroid in Dina Azul CRNP [address] [place] [address] Referral ID Status Reason Start Date Expiration Date Visits Requested Visits Authorized [id number] Pending Review Specialty Services Required 06/16/[phone] Encounter Details Date Type Department Care Team (Late st Contact Info) Description 07/01/2023 10:30 AM EDT Office Visit [facility]ter Obstetrics Maternal Medicine, [place] [address] [place] [address] Andrez Alberts MD [address] [place] [address] Primigravida of advanced maternal age in second trimester*; Uterine fibroid in ; renal anomaly, single gestation; Encounter for supervision of other normal , second trimester Allergies Active Allergy Reactions Criticality Noted Date Comments Penicillins 03/16/2017 documented as of this encounter (statuses as of 07/01/2023) Medications Medication Sig Dispensed Refills Start Date [...] as of this encounter (statuses as of 07/01/2023) Active Problems Problem Noted Date Diagnosed Date [...] as of this encounter (statuses as of 07/01/2023) Immunizations Name Administration Dates Next Due COVID-19 [...] money to get more. Never true 06/02/2023 [place] Depression Scale Answer Date Recorded [place] Depression Scale Total 7 04/30/2023 The thought [...] as of this encounter Progress Notes * Andrez Alberts MD - 07/01/2023 10:20 AM EDT MATERNAL MEDICINE VISIT Eliceo Louis is at 23w0d who presents to [facility] for an ultrasound and follow-up of her high risk . The patient is currently 23 weeks and 0 days gestation with advanced maternal age and a fibroid uterus. She comes in for an evaluation of anatomy. Of note, she has a low risk noninvasive screen during this . She is being seen today by Maternal- Medicine for the following reasons: Problem List Items Addressed This Visit AMA (advanced maternal age) primigravida 35+ - Primary Relevant Orders [facility] US PREG FOLLOW UP EACH FETUS Uterine fibroid in Relevant Orders [facility] US PREG FOLLOW UP EACH FETUS renal anomaly, single gestation I reviewed the ultrasound with her. The [...] age and the overall estimated weight is consistentwith the 20th percentile for the gestational age. I reviewed her low risk noninvasive screening in light of the urinary tract dilation. We discussed the many causes of urinary tract dilation, including physiologic, bladder reflux and some type of stenosis/narrowing of the ureter. Relevant Orders MFM US PREG FOLLOW UP EACH FETUS Other Visit Diagnoses Encounter for supervision of other normal , second trimester Relevant Orders MFM US PREG FOLLOW UP EACH FETUS We reviewed today's ultrasound findings. (For full report, please refer to ultrasound report provided separately). Ms. Louis's questions were answered to her satisfaction. Ms. Louis was instructed to notify her primary district sales representative if she felt regular contractions (approximately every 10 mins), leaking of fluid, vaginal bleeding or if movement decreased. RECOMMENDATIONS: Recommend follow up ultrasound with MFM in 4 weeks for growth secondary to maternal fibroid uterus. Thank you for allowing us to participate in the care of this patient. Please call with any questions. I spent 20 minutes with Ms. Louis of which greater than 50% was spent in face to face consultation and coordination of care for the above. Andrez Alberts MD 07/01/2023 10:20 AM documented in this encounter Miscellaneous Notes * Assessment & Plan Note - Andrez Alberts MD - 07/01/2023 11:19 AM EDT Associated Problem(s): renal anomaly, single gestation I reviewed the ultrasound with her. The [...] age and the overall estimated weight is consistentwith the 20th percentile for the gestational age. I reviewed her low risk noninvasive screening in light of the urinary tract dilation. We discussed the many causes of urinary tract dilation, including physiologic, bladder reflux and some type of stenosis/narrowing of the ureter. documented in this encounter Plan of Treatment Upcoming Encounters Date Type Department Care Team (Late st Contact Info) Description 07/15/2023 9:45 AM EDT Office Visit Gynecology/Obstetrics May [facility] [address] [place] [address] Destinee Robins CRNP [address] [place] [address] 07/29/2023 3:00 PM EDT Office Visit [place] Obstetrics Maternal Medicine, [place] [address] [place] [address] Andrez Alberts MD [address] [place] [address] 07/29/2023 3:00 PM EDT Imaging Radiology [place] [address] [place] [address] 09/03/2023 8:00 AM EDT Imaging Maternal Medicine Imaging, Sandra Slaughter [address] [place] [phone] 09/24/2023 8:00 AM EDT Imaging Maternal Medicine Imaging, Sandra Slaughter [address] [place] [address] 10/22/2023 8:00 AM EDT Imaging Maternal Medicine Imaging, Sandra Slaughter [address] [place] [phone] Scheduled Orders Name Type Priority Associated Diagnoses Orde r Schedule MFM US PREG FOLLOW UP EACH FETUS Medical Imaging Routine Primigravida of advanced maternal age in second trimester Uterine fibroid in renal anomaly, single gestation Encounter for supervision of other normal , second trimester 6 Occurrences starting 07/01/2023 until 01/01/2024 Health Maintenance Due Date Last Done Comments [...] Diagnosis Primigravida of advanced maternal age in second trimester- Primary Uterine fibroid in Tumors of body of uterus, unspecified as to episode of care in renal anomaly, single gestation Encounter for supervision of other normal , second trimester documented in this encounter Care Teams Six Pack Packer Relationship Specialty Start Date End Date Eli Junior MD [address] [place] [address] PCP - General Internal Medicine 04/08/21 documented as of this encounter
--- OUTSIDE RECORDS SUMMARY | 2023-11-04 14:20 | External Medical Summary | Summary of Care ---
Author Name Unknown Organization [facility] Address [address] [place] [address] Phone [phone] Care Team Providers Care Supervisor Intermediates Name Role Phone Eli Junior MD Primary Care Provider Reason for Visit * Reason Comments Ultrasound Encounter Details Date Type Department Care Team (Late st Contact Info) Description 07/29/2023 3:00 PM EDT Office Visit Slab Off Mill Tender Obstetrics Maternal Medicine, [place] [address] [place] [address] Andrez Alberts MD [address] [place] [address] Primigravida of advanced maternal age in second trimester*; renal anomaly, single gestation; Uterine fibroid in Allergies Active Allergy Reactions Criticality Noted Date Comments Penicillins 03/16/2017 documented as of this encounter (statuses as of 07/29/2023) Medications Medication Sig Dispensed Refills Start Date [...] as of this encounter (statuses as of 07/29/2023) Active Problems Problem Noted Date Diagnosed Date [...] the fetus is in the vertex presentation. Supervision of normal first 04/30/2023 AMA (advanced [...] as of this encounter (statuses as of 07/29/2023) Immunizations Name Administration Dates Next Due COVID-19 [...] money to get more. Never true 06/02/2023 [place] Depression Scale Answer Date Recorded [place] Depression Scale Total 7 04/30/2023 The thought [...] No 06/02/2023 Does the household have a [facility] source of income? (Household - for ages [...] Progress Notes * Andrez Alberts MD - 07/29/2023 2:37 PM EDT MATERNAL MEDICINE VISIT Eliceo Louis is at 27w0d who presents to [facility] for an ultrasound and follow-up of her high risk . The patient is currently 27 weeks and 0 days gestational advanced maternal age and a fibroid uterus. At her last ultrasound, there was bilateral urinary tract dilation, with the right and left urinary tract measuring 4.4 mm and 4.3 mm, respectively. She comes in for follow-up. She is being seen today by Maternal- Medicine for the following reasons: Problem List Items Addressed This Visit AMA (advanced maternal age) primigravida 35+ - Primary Uterine fibroid in renal anomaly, single gestation I reviewed the ultrasound. The overall estimated [...] the fetus is in the vertex presentation. Thank you for allowing us to participate in the care of this patient. Please call with any questions. Andrez Alberts MD 07/29/2023 2:37 PM documented in this encounter Miscellaneous Notes * Assessment & Plan Note - Andrez Alberts MD - 07/29/2023 3:10 PM EDT Associated Problem(s): renal anomaly, single gestation I reviewed the ultrasound. The overall estimated [...] fetus is in the vertex presentation. documented in this encounter Plan of Treatment Upcoming Encounters Date Type Department Care Team (Late st Contact Info) Description 08/04/2023 1:40 PM EDT [facility] [address] [place] [phone] Monica Slaughter [address] [facility] [place] [address] 08/04/2023 1:45 PM EDT Office Visit Gynecology/Obstetrics May Slaughter [address] [place] [address] Backer, ANGELICA Talbert [address] [place] [address] 09/03/2023 8:00 AM EDT Imaging Maternal Medicine Imaging, [place] [phone] 09/24/2023 8:00 AM EDT Imaging Maternal Medicine Imaging, [place] [phone] 10/22/2023 8:00 AM EDT Imaging Maternal Medicine Imaging, [place] [phone] Health Maintenance Due Date Last Done Comments [...] advanced maternal age in second trimester- Primary renal anomaly, single gestation Uterine fibroid in Tumors of body of uterus, unspecified as to episode of care in documented in this encounter Care Teams Supervisor Intermediates Relationship Specialty Start Date End Date Eli Junior MD [address] [place] [address] PCP - General Internal Medicine 04/08/21 documented as of this encounter
--- OUTSIDE RECORDS SUMMARY | 2023-11-04 14:20 | External Medical Summary | Summary of Care ---
Author Name Unknown Organization [facility] Address [address] [place] [address] Phone [phone] Care Team Providers Care Golf Starter And Ranger Name Role Phone Eli Junior MD Primary Care Provider Encounter Details Date Type Department Care Team (Late st Contact Info) Description 06/22/2023 Orders Only Outcomes Research Department [address] [place], [place] [id number] Oralia Gibbons CHRA [facility] Research Other*[id number] Allergies Active Allergy Reactions Criticality Noted Date Comments Penicillins 03/16/2017 documented as of this encounter (statuses as of 06/22/2023) Medications Medication Sig Dispensed Refills Start Date End Date Status valACYclovir HCl 1 GM Oral Tablet (Valtrex)Indications: Herpes labialis Take 2 Tablets by mouth in the morning and 2 Tablets before bedtime. For 1 day for cold sores. 12 Tablet 5 03/03/2023 Active 28-0.8 MG Oral Tablet Take by mouth. 0 Active Docusate Sodium 50 MG Oral Capsule Take by mouth 2 times a day. 0 Active documented as of this encounter (statuses as of 06/22/2023) Active Problems Problem Noted Date Diagnosed Date [...] as of this encounter (statuses as of 06/22/2023) Immunizations Name Administration Dates Next Due COVID-19 [...] money to get more. Never true 06/02/2023 [place] Depression Scale Answer Date Recorded [place] Depression Scale Total 7 04/30/2023 The thought [...] Description 07/01/2023 10:30 AM EDT Office Visit Feed Crusher Obstetrics Maternal Medicine, [place] [address] [place] [address] Andrez Alberts MD [address] [place] [address] 07/01/2023 10:30 AM EDT Imaging Radiology [facility] [place] [address] [facility] [place] [address] 07/15/2023 9:45 AM EDT Office Visit Gynecology/Obstetrics May Slaughter [address] [place] [address] Destinee Robins CRNP [address] [place] [address] Scheduled Orders Name Type Priority Associated Diagnoses Orde r Schedule MYCODE INITIAL ADULT Lab Routine [facility] Research Other*[id number] Expected: 06/22/2023 (Approximate), Expires: 07/11/2024 Health Maintenance Due Date Last Done Comments [...] this encounter Visit Diagnoses Diagnosis [facility] Research Other*[id number] documented in this encounter Care Teams Golf Starter And Ranger Relationship Specialty Start Date End Date Eli Junior MD [address] [place] [address] PCP - General Internal Medicine 04/08/21 documented as of this encounter
--- OUTSIDE RECORDS SUMMARY | 2023-11-04 14:20 | External Medical Summary | Summary of Care ---
Author Name Unknown Organization [facility] Address [address] [place] [address] Phone [phone] Care Team Providers Care Software Engineering Supervisor Name Role Phone Eli Junior MD Primary Care Provider Reason for Visit * Reason Comments Ultrasound Encounter Details Date Type Department Care Team (Late st Contact Info) Description 07/29/2023 3:00 PM EDT Office Visit Carpet Layer Helper Obstetrics Maternal Medicine, [place] [address] [place] [address] Andrez Alberts MD [address] [place] [address] Primigravida of advanced maternal age in second [...] money to get more. Never true 06/02/2023 [place] Depression Scale Answer Date Recorded [place] Depression Scale Total 7 04/30/2023 The thought [...] No 06/02/2023 Does the household have a [facility] source of income? (Household - for [...] Louis is at 27w0d who presents to [facility] for an ultrasound and follow-up of [...] 08/04/2023 1:40 PM EDT [facility] [address] [place] [phone] Monica Slaughter [address] [facility] [place] [address] 08/04/2023 1:45 PM EDT Office Visit Gynecology/Obstetrics May Slaughter [address] [place] [address] Backer, ANGELICA Talbert [address] [place] [address] 09/03/2023 8:00 AM EDT Imaging Maternal Medicine Imaging, [place] [phone] 09/24/2023 8:00 AM EDT Imaging Maternal Medicine Imaging, [address] [place] [phone] 10/22/2023 8:00 AM EDT Imaging Maternal Medicine Imaging, [place] [phone] Health Maintenance Due Date Last Done Comments [...] in documented in this encounter Care Teams Software Engineering Supervisor Relationship Specialty Start Date End Date Eli Junior MD [address] [place] [address] PCP - General Internal Medicine 04/08/21 documented as of this encounter
--- OUTSIDE RECORDS SUMMARY | 2023-11-04 14:20 | External Medical Summary | Summary of Care ---
Author Name Unknown Organization [facility] Address [address] [facility] [place] [address] Phone [phone] Care Team Providers Care Door Technician Name Role Phone Eli Junior MD Primary Care Provider Reason for Visit * Reason Comments Return Visit Encounter Details Date Type Department Care Team (Late st Contact Info) Description 06/16/2023 11:30 AM EDT Office Visit Gynecology/Obstetric s May Slag[place]ter [address] [place] [address] Dina Azul CRNP [address] [place] [address] Encounter for supervision of normal first in second trimester*; Primigravida of advanced maternal age in second trimester; Uterine fibroid in Allergies Active Allergy Reactions Criticality Noted Date Comments Penicillins 03/16/2017 documented as of this encounter (statuses as of 06/16/2023) Medications Medication Sig Dispensed Refills Start Date End Date Status valACYclovir HCl 1 GM Oral Tablet (Valtrex)Indicati ons:Herpes labialis Take 2 Tablets by mouth in the morning and 2 Tablets before bedtime. For 1 day for cold sores. 12 Tablet 5 03/03/2023 Active 28-0.8 MG Oral Tablet Take by mouth. 0 Active Docusate Sodium 50 MG Oral Capsule Take by mouth 2 times a day. 0 Active Probiotic 250 MG Oral Capsule Take by mouth. 0 06/16/2023 Disconti nued documented as of this encounter (statuses as of 06/16/2023) Active Problems Problem Noted Date Diagnosed Date [...] as of this encounter (statuses as of 06/16/2023) Immunizations Name Administration Dates Next Due COVID-19 [...] money to get more. Never true 06/02/2023 [place] Depression Scale Answer Date Recorded [place] Depression Scale Total 7 04/30/2023 The thought [...] Reading Time Taken Comments Blood Pressure 96/58 06/16/2023 11:18 AM EDT Pulse - - Temperature - - Respiratory Rate - - Oxygen Saturation - - Inhaled Oxygen Concentration - - Weight 54.9 kg (121 lb) 06/16/2023 11:18 AM EDT Height - - Body Mass Index 20.77 04/24/2023 10:35 AM EDT documented in this encounter Progress Notes * Dina Azul CRNP - 06/16/2023 11:26 AM EDT 20w6d Thinks she is feeling movement. No cramping/bleeding. Anatomy scan today, report in process. +cardiac activity on scan. Declines MSAFP. 4 week return ANGELICA Hughes * Rosie Morris LPN - 06/16/2023 11:19 AM EDT 20w6d Denies vaginal bleeding/rom + movement Anatomy scan today documented in this encounter Plan of Treatment Upcoming Encounters Date Type Department Care Team (Late st Contact Info) Description 07/15/2023 9:45 AM EDT Office Visit Gynecology/Obstetrics May Slaughter [address] [place] [address] Destinee Robins CRNP [address] [place] [address] Health Maintenance Due Date Last Done Comments [...] in documented in this encounter Care Teams Door Technician Relationship Specialty Start Date End Date Eli Junior MD 132 [facility] [place] [address] PCP - General Internal Medicine 04/08/21 documented as of this encounter
--- OUTSIDE RECORDS SUMMARY | 2023-11-04 14:20 | External Medical Summary | Summary of Care ---
Author Name Unknown Organization [facility] Address [address] [place] [address] Phone [phone] Care Team Providers Care Yield Loss Inspector Name Role Phone Eli Junior MD Primary Care Provider Reason for Visit * Reason Onset Date Comments Referral 06/17/2023 Encounter Details Date Type Department Care Team (Late st Contact Info) Description 06/17/2023 Telephone Professional Development Instructor Obstetrics Maternal Medicine, [place] [address] [place], [place] [phone] [place], Nurse Professional Development Instructor [facility] [address] [place], [place] [id number] Referral Allergies Active Allergy Reactions Criticality Noted Date Comments Penicillins 03/16/2017 documented as of this encounter (statuses as of 06/17/2023) Medications Medication Sig Dispensed Refills Start Date [...] as of this encounter (statuses as of 06/17/2023) Active Problems Problem Noted Date Diagnosed Date [...] as of this encounter (statuses as of 06/17/2023) Immunizations Name Administration Dates Next Due COVID-19 [...] money to get more. Never true 06/02/2023 [place] Depression Scale Answer Date Recorded [place] Depression Scale Total 7 04/30/2023 The thought [...] Telephone Encounter - Brook Palacios OSA - 06/17/2023 9:25 AM EDT Spoke with Eliceo. Appointment scheduled. Patient aware of date, time and location of Maternal Medicine appointment. * Telephone Encounter - Yohana Urbina CCMA - 06/17/2023 9:08 AM EDT Estimated Date of Delivery: 10/28/23 Please schedule for LONG SCAN, in time frame of within 2-3 weeks at location [facility] with the indication of AMA(37), uterine fibroid (4.7 x 2.6 x 3.3 cm). Referring Provider: Dina Azul CRNP documented in this encounter Plan of Treatment Upcoming Encounters Date Type Department Care Team (Late st Contact Info) Description 07/01/2023 10:30 AM EDT Office Visit Professional Development Instructor Obstetrics Maternal Medicine, [place] [address] [place] [address] Andrez Alberts MD [address] [place] [address] 07/01/2023 10:30 AM EDT Imaging Radiology [facility] [address] [place] [address] 07/15/2023 9:45 AM EDT Office Visit Gynecology/Obstetrics [facility] [address] [place] [address] Destinee Robins CRNP [address] [place] [address] Health Maintenance Due Date Last Done Comments [...] filedocumented as of this encounter Care Teams Yield Loss Inspector Relationship Specialty Start Date End Date Eli Junior MD [address] [facility] [place] [address] PCP - General Internal Medicine 04/08/21 documented as of this encounter
--- OUTSIDE RECORDS SUMMARY | 2023-11-04 14:20 | External Medical Summary ---
Author Name Unknown Address Unknown Organization K0G:[facility] [place] [address] [place] [address] Laboratory Report Ordering Provider Test Date Status JENNIFER RAMIREZ 08/04/2023 14:44:55 Final Observation Date Value Abnormality Reference (Units ) Status Glucose [Moles/volume] in Serum or Plasma --1 hour post 50 g glucose PO 08/04/2023 14:44:55 99 70-129 (mg/dL) Final Performing Location [facility] [place] [address] [place] [address]
--- OUTSIDE RECORDS SUMMARY | 2023-11-04 14:20 | External Medical Summary | Summary of Care ---
Author Name Unknown Organization [facility] Address [address] [facility] [place] [address] Phone [phone] Care Team Providers Care Assembler Liquid Center Name Role Phone Eli Junior MD Primary Care Provider Encounter Details Date Type Department Care Team (Late st Contact Info) Description 05/08/2023 Telephone Gynecology/Obstetrics [facility] [place] [address] BackDina lynn CRNP [facility] [place] [address] Allergies Active Allergy Reactions Criticality Noted Date Comments Penicillins 03/16/2017 documented as of this encounter (statuses as of 05/18/2023) Medications Medication Sig Dispensed Refills Start Date [...] as of this encounter (statuses as of 05/18/2023) Active Problems Problem Noted Date Diagnosed Date [...] as of this encounter (statuses as of 05/18/2023) Immunizations Name Administration Dates Next Due COVID-19 [...] money to get more. Never true 11/10/2022 [place] Depression Scale Answer Date Recorded [place] Depression Scale Total 7 04/30/2023 The thought [...] encounter Miscellaneous Notes * Telephone Encounter - Yohana Bunn RN - 05/18/2023 8:28 AM EDT left message for patient to call office * Telephone Encounter - Yohana Bunn RN - 05/11/2023 10:48 AM EDT PPT DATE: n/a LOCATION/FACILITY: [facility] ORDERING PHYSICIAN: Dina Azul CRNP [facility] CODE/PROCEDURE CODE: 69682 QNATAL ADVANCED ([facility]) [[id number]] DX: Primigravida of advanced maternal age in second trimester [O09.512] Encounter for supervision of normal first in second trimester [Z34.02] PRECERT REQUIRED: no AUTH # n/a VALID DATES: n/a NUMBER OF VISITS APPROVED: n/a INSURANCE INFO: [employer] Per Yobany Y with [employer] no auth is required Reference # [id number] AUTHORIZATION IS NOT A GUARANTEE OF PAYMENT, PAYMENT IS BASED ON MEDICAL NECESSITY AND PATIENT'S ELIGIBILITY AND BENEFITS AT TIME OF SERVICE. Thank you Will wait for pt to call back. No auth is needed but this does not mean that it is a covered benefit. * Telephone Encounter - Yohana Bunn RN - 05/11/2023 9:25 AM EDT left message for patient to call office * Telephone Encounter - Sylvia Cat OSA - 05/11/2023 8:46 AM EDT No authorization is required. Referral note sent back. Thank you. * Telephone Encounter - Yohana Bunn RN - 05/11/2023 8:17 AM EDT EDC: 10/28/23 15w5d today. Please prior auth. * Telephone Encounter - Dina Azul CRNP - 05/11/2023 7:35 AM EDT Order signed. ANGELICA Hughes * Telephone Encounter - Kelsy Rutherford LPN - 05/08/2023 4:47 PM EDT Patient called requesting QNatal testing. Please place order. Patient states she needs a prior authsent, once order is placed we will send PA. documented in this encounter Plan of Treatment Upcoming Encounters Date Type Department Care Team (Late st Contact Info) Description 05/26/2023 11:45 AM EDT [facility] [address] [place] [address] Dina Azul CRNP [address] [place] [address] Pending Results Name Type Priority Associated Diagnoses Date /Time QNATAL ADVANCED ([facility]) Lab Routine Primigravida of advanced maternal age in second trimester Encounter for supervision of normal first in second trimester 05/13/2023 8:12 AM EDT Scheduled Orders Name Type Priority Associated Diagnoses Orde r Schedule QNATAL ADVANCED ([facility]) Lab Routine Primigravida of advanced maternal age in second trimester Encounter for supervision of normal first in second trimester Expected: 05/11/2023 (Approximate), Expires: 05/07/2024 Health Maintenance Due Date Last Done Comments [...] advanced maternal age in second trimester- Primary Encounter for supervision of normal first in second trimester Supervision of normal first documented in this encounter Care Teams Assembler Liquid Center Relationship Specialty Start Date End Date Eli Junior MD [address] [facility] [place] [address] PCP - General Internal Medicine 04/08/21 documented as of this encounter
--- OUTSIDE RECORDS SUMMARY | 2023-11-04 14:20 | External Medical Summary | Summary of Care ---
Author Name Unknown Organization [facility] Address [address] [place] [address] Phone [phone] Care Team Providers Care Environmental Inspector Name Role Phone Eli Junior MD [...] fibroid in Dina Azul CRNP [address] [place] [address] Referral ID Status Reason Start Date Expiration Date Visits Requested Visits Authorized [id number] Pending Review Specialty Services Required 06/16/[phone] Question Answer Referral Priority Within 10 days (routine) Has the patient had a viability scan? Yes Date performed 04/10/2023 Location performed Radiology Reason for referral Maternal medical condition Please provide additional details increasing size of uterine fibroid, AMA Where should this appointment be scheduled? [facility] Comments /Para: LMP: Patient's last menstrual period was 01/28/2023. Patient is . KARON: 10/28/2023, by Ultrasound Pre-Gravid BMI: 19.39 Reason for Visit * Reason Onset Date Comments Test Results 06/16/2023 Encounter Details Date Type Department Care Team (Late st Contact Info) Description 06/16/2023 Telephone Gynecology/Obstetrics May Slaughter [address] [place] [address] Backer, Dina ANGELICA Love [address] [place] [address] Test Results Allergies Active Allergy Reactions Criticality Noted Date [...] money to get more. Never true 06/02/2023 [place] Depression Scale Answer Date Recorded [place] Depression Scale Total 7 04/30/2023 The thought [...] encounter Miscellaneous Notes * Telephone Encounter - Kelsy Rutherford LPN - 06/16/2023 12:16 PM EDT Patient notified. agreeable * Telephone Encounter - Dina Azul CRNP - 06/16/2023 12:04 PM EDT Baby's anatomy appears normal, appropriate growth. Uterine fibroid slightly larger, about 5 cm. Given this, recommend consult w/MFM to see if any additional monitoring is advised during her . They will likely have her come to [facility] or [place] for an u/s, and if further follow up is needed, it can likely be done locally. Please let pt know. ANGELICA Hughes documented in this encounter Plan of Treatment Upcoming Encounters Date Type Department Care Team (Late st Contact Info) Description 07/15/2023 9:45 AM EDT Office Visit Gynecology/Obstetrics May Slaughter [address] [place] [address] Destinee Robins CRNP [address] [place] [address] Scheduled Orders Name Type Priority Associated Diagnoses Orde r Schedule MFM US MATERNAL 1ST FETUS Medical Imaging Routine Primigravida of advanced maternal age in second trimester Encounter for supervision of normal first in second trimester Uterine fibroid in Other specified related conditions, second trimester Expected: 06/23/2023 (Approximate), Expires: 07/16/2024 Scheduled Referrals Name Type Priority Associated Diagnoses Orde r Schedule MATERNAL MEDICINE REFERRAL OP Referral Within 10 days (routine) Primigravida of advanced maternal age in second trimester Encounter for supervision of normal first in second trimester Uterine fibroid in Ordered: 06/16/2023 Health Maintenance Due Date Last Done Comments [...] in second trimester Supervision of normal first Uterine fibroid in Tumors of body of uterus, unspecified as to episode of care in Other specified related conditions, second trimester documented in this encounter Care Teams Environmental Inspector Relationship Specialty Start Date End Date Eli Junior MD [address] [place] [address] PCP - General Internal Medicine 04/08/21 documented as of this encounter
--- OUTSIDE RECORDS SUMMARY | 2023-11-04 14:20 | External Medical Summary ---
Author Name Unknown Address Unknown Organization K01:[facility] [address] [address] Laboratory Report Ordering Provider Test Date Status JENNIFER RAMIREZ 08/04/2023 14:44:55 Final Observation Date Value Abnormality Reference (Units ) Status Treponema pallidum Ab [Presence] in Serum by Immunoassay 08/04/2023 14:44:55 Nonreactive Nonreactive Final No serologic evidence of syp hilis. No additional testing clinicially indicated at this time. Consider repeat testing in 2-4 weeks if acute or primary syphilis is suspected. Performing Location [facility] [address] [place] [address]
--- OUTSIDE RECORDS SUMMARY | 2023-11-04 14:20 | External Medical Summary ---
Author Name Unknown Address Unknown Organization K01:[facility]ORY [facility] [place] - [address] [place] [address] Laboratory Report Ordering Provider Test Date Status ASHLEYJENNIFER 08/04/2023 14:44:55 Final Observation Date Value Abnormality Reference (Units ) Status SYNC LEUKOCYTES IN BLOOD BY AUTOMATED COUNT 08/04/2023 14:44:55 8.20 4.00-10.80 (K/uL) Final Segs 08/04/2023 14:44:55 63.9 40.0-75.0 (%) Final Lymphs % 08/04/2023 14:44:55 26.3 18.0-42.0 (%) Final Monos 08/04/2023 14:44:55 7.2 1.0-11.0 (%) Final Eosinophils 08/04/2023 14:44:55 0.7 0.0-6.0 (%) Final Basos 08/04/2023 14:44:55 0.4 0.0-2.0 (%) Final Immature Granulocyte, Percent 08/04/2023 14:44:55 1.5 0.0-2.0 (%) Final Absolute Segs 08/04/2023 14:44:55 5.24 1.80-7.70 (K/uL) Final Lymphs, absolute 08/04/2023 14:44:55 2.16 1.00-4.80 (K/ul) Final Monos, Abs 08/04/2023 14:44:55 0.59 0.00-1.10 (K/uL) Final Eos, Abs 08/04/2023 14:44:55 0.06 0.00-0.70 (K/uL) Final Basos, Abs 08/04/2023 14:44:55 0.03 0.00-0.20 (K/uL) Final Immature Granulocytes, Number 08/04/2023 14:44:55 0.12 0.00-0.20 (K/uL) Final Performing Location [facility]ATORY [facility] [place] - [address] [facility] [address]
--- OUTSIDE RECORDS SUMMARY | 2023-11-04 14:20 | External Medical Summary ---
Author Name Unknown Address Unknown Organization K01:[place] [facility] [place] [facility] [address] [place] [address] Laboratory Report Ordering Provider Test Date Status JENNIFER RAMIREZ 08/04/2023 14:44:55 Final Observation Date Value Abnormality Reference (Units ) Status Creatinine 08/04/2023 14:44:55 0.7 0.5-1.0 (mg/dL) Final Glomerular filtration rate/1.73 sq M.predicted [Volume Rate/Area] in Serum, Plasma or Blood by Creatinine-based formula (CKD-EPI) 08/04/2023 14:44:55 >90 >=60 (mL/min) Final eGFR is calculated based on the CKD-EPI 2020 equation Performing Location [facility] [place] [address] [place] [address]
--- OUTSIDE RECORDS SUMMARY | 2023-11-04 14:20 | External Medical Summary ---
Author Name Unknown Address Unknown Organization K01:[facility] [facility] [place] [facility] [address] [place] [address] Laboratory Report Ordering Provider Test Date Status JENNIFER RAMIREZ 08/04/2023 14:44:55 Final Observation Date Value Abnormality Reference (Units ) Status WBC, Total 08/04/2023 14:44:55 8.20 4.00-10.8 0 (K/uL) Final RBC 08/04/2023 14:44:55 3.83 3.85-5.15 (M/uL) Final Hemoglobin 08/04/2023 14:44:55 10.7 Below low normal 12 .0-15.3 (g/dL) Final Anemia reflex testing trigge rs on a HGB < 12.0 for Females and HGB < 13.0 for Males in accordance with the WHO Anemia Guidelines
Anemia reflex testing triggers on a HGB < 12.0 for Females and HGB < 13.0 for Males in accordance with the WHO Anemia Guidelines HCT 08/04/2023 14:44:55 32.5 Below low normal 36. 0-45.2 (%) Final MCV 08/04/2023 14:44:55 84.9 81.5-97.5 (fL) Final MCH 08/04/2023 14:44:55 27.9 27.0-34.0 (pg) Final MCHC 08/04/2023 14:44:55 32.9 32.0-36.0 (g/dL) Final RDW 08/04/2023 14:44:55 12.3 11.5-15.5 (%) Final Platelets 08/04/2023 14:44:55 333 140-400 (K /uL) Final MPV 08/04/2023 14:44:55 8.8 6.6-11.1 ( fL) Final Nucleated erythrocytes/100 leukocytes [Ratio] in Blood by Automated count 08/04/2023 14:44:55 0 <=0 (/100 WBCs) Final Performing Location [facility] [place] [address] [facility] [address]
--- OUTSIDE RECORDS SUMMARY | 2023-11-04 14:20 | External Medical Summary | Summary of Care ---
Author Name Unknown Organization [facility] Address [address] [place] [address] Phone [phone] Care Team Providers Care Nylon Hot Wire Cutter Name Role Phone Eli Junior MD Primary Care Provider Encounter Details Date Type Department Care Team (Late st Contact Info) Description 05/08/2023 Telephone Gynecology/Obst[facility]s [facility] [address] [facility] [place] [address] BackDina lynn CRNP [address] [place] [address] Allergies Active Allergy Reactions Criticality Noted Date Comments Penicillins 03/16/2017 documented as of this encounter (statuses as of 05/15/2023) Medications Medication Sig Dispensed Refills Start Date [...] as of this encounter (statuses as of 05/15/2023) Active Problems Problem Noted Date Diagnosed Date [...] as of this encounter (statuses as of 05/15/2023) Immunizations Name Administration Dates Next Due COVID-19 [...] money to get more. Never true 11/10/2022 Camilla Depression Scale Answer Date Recorded Camilla Depression Scale Total 7 04/30/2023 The thought [...] 10:48 AM EDT PPT DATE: n/a LOCATION/FACILITY: [facility] ORDERING PHYSICIAN: Dina Azul CRNP [facility] CODE/PROCEDURE CODE: 05469 QNATAL ADVANCED (QUEST) [[id number]] DX: Primigravida of advanced maternal age in second trimester [O09.512] Encounter for supervision of normal first in second trimester [Z34.02] PRECERT REQUIRED: no AUTH # n/a VALID DATES: n/a NUMBER OF VISITS APPROVED: n/a INSURANCE INFO: [employer] Per Yobany Y with [employer] no auth is required Reference # [id number] AUTHORIZATION IS NOT A GUARANTEE OF PAYMENT, [...] 05/26/2023 11:45 AM EDT Office Visit Gynecology/Obstetrics [facility] [address] [place] [address] [place], ANGELICA Talbert [address] [place] [address] Pending Results Name Type Priority Associated Diagnoses [...] first documented in this encounter Care Teams Nylon Hot Wire Cutter Relationship Specialty Start Date End Date Eli Junior MD [address] [place] [address] PCP - General Internal Medicine 04/08/21 documented as of this encounter
--- OUTSIDE RECORDS SUMMARY | 2023-11-04 14:21 | External Medical Summary ---
Author Name Unknown Address Unknown Organization : Laboratory Report Ordering Provider Test Date Status LOULOU BIRCH 05/13/2023 08:12:43 Final Observation Date Value Abnormality Reference (Units ) Status NUMBER OF FETUSES? 05/13/2023 08:12:43 1 Final ADVANCED MATERNAL AGE? 05/13/2023 08:12:43 YES Final ABNORMAL PEBBLES? 05/13/2023 08:12:43 NO Final ABNORMAL US? 05/13/2023 08:12:43 NOT GIVEN Final PERSONAL/FAM HISTORY? 05/13/2023 08:12:43 NOT GIVEN Final INTERPRETATION 05/13/2023 08:12:43 SEE BELOW Final This specimen showed an expe cted representation of
chromosome 21, 18, and 13 material. Results were
not analyzed or reported for microdeletions. See
'Limitations' below. TRISOMY 21 (T21) 05/13/2023 08:12:43 Negative Final TRISOMY 18 (T18) 05/13/2023 08:12:43 Negative Final TRISOMY 13 (T13) 05/13/2023 08:12:43 Negative Final Y CHROMOSOME 05/13/2023 08:12:43 Detected Final Y CHR. INTERPRETATION 05/13/2023 08:12:43 SEE BELOW Final Consistent with a male fetus . SEX CHROMOSOME 05/13/2023 08:12:43 No aneuploidy Final SEX CHROMOSOME INTERP 05/13/2023 08:12:43 SEE BELOW Final No apparent abnormality was detected. See
'Limitations' below. MICRODELETION 05/13/2023 08:12:43 Opted Out Final MICRODELETION INTERP 05/13/2023 08:12:43 SEE BELOW Final Results were not analyzed or reported for
microdeletions. GESTATIONAL AGE (IN WEEKS) 05/13/2023 08:12:43 16 Final GESTATIONAL AGE (IN DAYS) 05/13/2023 08:12:43 0 Final FRACTION 05/13/2023 08:12:43 14.19% Final LABORATORY COMMENTS 05/13/2023 08:12:43 SEE BELOW Final Laboratory testing supervise d and results
monitored by Ashley Maher, Ph.D., [facility],
[facility]. LIMITATIONS 05/13/2023 08:12:43 SEE BELOW Final QNatal(R) Advanced is a cell -free DNA screening
test that screens for increased risk of certain
chromosomal abnormalities that may cause
defects, including Trisomy 21 (Down
syndrome), Trisomy 18, Trisomy 13, and certain sex
chromosome abnormalities (i.e., 45,X, 47,XXY,
47,XXX, and 47,XYY), as well as sex. In
addition, if selected as an option, QNatal(R)
Advanced can screen for certain microdeletions
(i.e., 22q, 5p, 1p36, 15q, 11q, 8q, and 4p) that
may cause defects. This test does not assess
the risk of abnormalities such as neural
tube defects or ventral wall defects and should
not be considered in isolation from other clinical
findings and laboratory test results.
QNatal(R) Advanced has been validated in guy
pregnancies for the trisomies and sex chromosome
abnormalities listed above, as well as for
microdeletions, and for the determination of
sex. Sex chromosome aneuploidy analysis is only
performed in guy pregnancies. This screening
test has also been validated in twin pregnancies
for the trisomies listed above and for
microdeletions, but not for the sex chromosome
abnormalities due to limited data. This screening
test has not been validated in higher order
pregnancies (more than two) because limited data
is available. Sex chromosomal aneuploidy results
issued for pregnancies confirmed to be of multiple
gestations are not valid and should be
disregarded.
Microdeletion screening is limited to the
specified microdeletion regions (see
'Methodology'). The Y chromosome is analyzed for
the determination of sex. The sensitivity
and specificity of sex determination
analysis may be less than that of the Trisomy 21,
18, and 13 analysis and this determination can be
confounded by vanishing twin syndrome in
pregnancies that were originally multiple
gestation pregnancies. It should be noted that
QNatal(R) Advanced is a quantitative analysis of
maternal and placental cfDNA. As a result, the
accuracy of screening results may be affected by
the presence of chromosome abnormalities or
microdeletions that are maternal or confined
placental in origin. SPECIFICATIONS 05/13/2023 08:12:43 SEE BELOW Final Sensitivity Specificity
T21 >99.9% >99.9%
T18 >99.9% >99.9%
T13 >99.9% >99.9%
Accuracy
Y >99.9%
Performance of the QNatal Advanced
laboratory-developed test (LDT) has been
determined based on internal analytical
assessment. METHODOLOGY 05/13/2023 08:12:43 SEE BELOW Final Circulating cell-free (cf) D NA was isolated from
plasma followed by detection on a massively
parallel sequencing platform. Bioinformatic
analysis was performed to determine the
representation of chromosomes 21, 18, 13, X and Y
in circulating cell-free DNA. The representation
of sequences from the critical regions involved in
1p36 microdeletion syndrome (1p36),
Rosales-Hirschhorn syndrome (4p), Cri-du-chat
syndrome (5p), Irasema-Giedion syndrome (8q),
Kaya syndrome (11q), Prader Willi
syndrome/Angelman syndrome (15q), and DiGeorge
syndrome (22q) is evaluated for the detection of
microdeletions if requested. Performance
characteristics refer to the analytical
performance of this screening test. This screening
test is performed pursuant to a license agreement
with [employer].
QNatal Advanced is a laboratory developed test
that has been developed and validated, pursuant to
the Clinical Laboratory Improvements Amendments of
1988 (CLIA), and as such it has not been reviewed
by FDA.
Test performed by [facility]
[id number],
[place] [address]

Interactive Media Project Manager: Mariel Florentino MD,PHD,LIANE
Test Reported by [facility],
[employer] [place],
[address] [place], [place]
Corky Crystal M.D., Ph.D., Director of Laboratories
, CLIA [id number] Performing Location
--- OUTSIDE RECORDS SUMMARY | 2023-11-04 14:21 | External Medical Summary ---
Author Name Unknown Address Unknown Organization K01:LAB[facility]ATORY [facility] - [address] [place] [address] Laboratory Report Ordering Provider Test Date Status VERNA SCOTT 05/13/2023 08:12:43 Final Observation Date Value Abnormality Reference (Units ) Status Triglyceride 05/13/2023 08:12:43 147 <=174 ( mg/dL) Final Triglyceride Reference Range s (mg/dL):
<150 Acceptable
150-174 Borderline high
175-499 High
>=500 Very high Cholesterol 05/13/2023 08:12:43 196 <200 (mg /dL) Final Total Cholesterol Reference Ranges (mg/dL):
<200 Desirable
200-239 Borderline high
>=240 High HDL 05/13/2023 08:12:43 72 >49 (mg/dL ) Final HDL Cholesterol Reference Ra nges (mg/dL):
>=60 High (Desirable)
<50 Low (Undesirable) For Females
<40 Low (Undesirable) For Males NON-HDL CHOLESTEROL 05/13/2023 08:12:43 124 <=159 (mg/dL) Final Non-HDL Cholesterol Referenc e Range (mg/dL):
<100 Target level for high risk ASCVD patient
<130 Optimal for general population
130-159 Near optimal for general population
160-189 Borderline High
190-219 High
>=220 Very High LDL, (calculated) 05/13/2023 08:12:43 95 <= 129 (mg/dL) Final LDL Cholesterol Reference Ra nges (mg/dL):
<70 Target level for high risk ASCVD patient
<100 Optimal for general population
100-129 Near optimal for general population
130-159 Borderline high
160-189 High
>=190 Very high Performing Location LAB[facility]ATORY [facility] - [address] [facility] [address]
--- OUTSIDE RECORDS SUMMARY | 2023-11-04 14:21 | External Medical Summary | Summary of Care ---
Author Name Unknown Organization [facility] Address [address] [place] [address] Phone [phone] Care Team Providers Care Chemical Processor Name Role Phone Eli Junior MD Primary Care Provider Reason for Visit * Reason Comments Outpatient Testing Encounter Details Date Type Department Care Team (Late st Contact Info) Description 05/13/2023 8:00 AM EDT Laboratory Laboratory, [facility] [address] [facility] [place] [address] [facility] [address] [place] [address] Screening cholesterol level; Primigravida of advanced maternal age in second trimester; Encounter for supervision of normal first in second trimester Allergies Active Allergy Reactions Criticality Noted Date Comments Penicillins 03/16/2017 documented as of this encounter (statuses as of 05/13/2023) Medications Medication Sig Dispensed Refills Start Date [...] as of this encounter (statuses as of 05/13/2023) Active Problems Problem Noted Date Diagnosed Date [...] as of this encounter (statuses as of 05/13/2023) Immunizations Name Administration Dates Next Due COVID-19 [...] money to get more. Never true 11/10/2022 [place] Depression Scale Answer Date Recorded [place] Depression Scale Total 7 04/30/2023 The thought [...] 05/26/2023 11:45 AM EDT Office Visit Gynecology/Obstetrics [facility] [address] [place] [address] Dina Azul CRNP [address] [place] [address] Pending Results Name Type Priority Associated Diagnoses Date /Time LIPID PANEL WITH DIRECT LDL IF TG IS HIGH Lab Routine Screening cholesterol level 05/13/2023 8:12 AM EDT QNATAL ADVANCED (QUEST) Lab Routine Primigravida of advanced maternal age in second trimester Encounter for supervision of normal first in second trimester 05/13/2023 8:12 AM EDT Health Maintenance Due Date Last [...] as of this encounter Visit Diagnoses Diagnosis Screening cholesterol level Screening for lipoid disorders Primigravida of advanced maternal age in second trimester Encounter for supervision of normal first in second trimester Supervision of normal first documented in this encounter Care Teams Chemical Processor Relationship Specialty Start Date End Date Eli Junior MD [address] [place] [address] PCP - General Internal Medicine 04/08/21 documented as of this encounter
--- OUTSIDE RECORDS SUMMARY | 2023-11-04 14:21 | External Medical Summary ---
Author Name Unknown Address Unknown Organization K01:LABORATORY [facility] - [address] [place] [address] Laboratory Report Ordering Provider Test Date Status VERNA SCOTT 05/13/2023 08:12:43 Final Observation Date Value Abnormality Reference (Units ) Status Glucose 05/13/2023 08:12:43 77 70-120 (mg /dL) Final Performing Location LAB[facility]ATORY [facility] - [address] [place] [address]
--- OUTSIDE RECORDS SUMMARY | 2023-11-04 14:21 | External Medical Summary | Summary of Care ---
Author Name Unknown Organization [facility] Address [address] [facility] [place] [address] Phone [phone] Care Team Providers Care Electroneurodiagnostic Technician Name Role Phone Eli Junior MD Primary Care Provider Encounter Details Date Type Department Care Team (Late st Contact Info) Description 05/08/2023 Orders Only PATIENT PORTAL DO NOT DELETE THIS DEPT USED BY [place] [id number] Allergies Active Allergy Reactions Criticality Noted Date Comments Penicillins 03/16/2017 documented as of this encounter (statuses as of 05/08/2023) Medications Medication Sig Dispensed Refills Start Date [...] as of this encounter (statuses as of 05/08/2023) Active Problems Problem Noted Date Diagnosed Date [...] as of this encounter (statuses as of 05/08/2023) Immunizations Name Administration Dates Next Due COVID-19 [...] money to get more. Never true 11/10/2022 [place] Depression Scale Answer Date Recorded [place] Depression Scale Total 7 04/30/2023 The thought [...] Gynecology/Obstetrics [facility] [address] [place] [address] Dina Azul CRNP [address] [place] [address] Health Maintenance Due Date Last Done Comments DTaP,Tdap,and Td Vaccines (1 - Tdap) 2005 Hepatitis B (1 of 3 - 19+ 3-dose series) 2005 Depression Screening 05/10/2022 05/10/2021 COVID-19 Vaccine (4 - 2022-24 season) 2022 02/15/2021, 06/12/2020, 05/13/2020 Influenza Vaccine (FLU shot) (#1) 2022 Pap Smear 04/29/2026 04/30/2023, 03/12, 03/16/2017, Additional [...] filedocumented as of this encounter Care Teams Electroneurodiagnostic Technician Relationship Specialty Start Date End Date Eli Junior MD [address] [facility] [place] [address] PCP - General Internal Medicine 04/08/21 documented as of this encounter
[2023-11-04] MEDS: BUTORPHANOL TARTRATE 2 MG/ML VIAL IV PRN (16:00)
[2023-11-04] MEDS: LACTATED RINGER'S 1,000 ML IV PRN (16:01)
--- NOTE | 2023-11-04 21:23 | Labor Progress Brief Note ---
Date of Service November 04, 2023 Assessment & Plan Admission and Anticipated Discharge Date Admission Date: November 04, 2023 Physical Exam Genitourinary: Manual OB Exam: + cervical dilation fingertip, + cervical effacement 60% and 70% and + station high OB Exam Monitor Tracing: + external FHT monitor used, + external uterine monitor used, + category I and + normal FHT variability Cervidil pulled out Will give cytotec to continue cervical ripening Results & Data Vital Signs (Past 12 Hours) Vital Signs Temp Pulse Resp BP 11/04/23 19:05 18 11/04/23 19:05 36.6 C 18 11/04/23 19:03 65 113/67 11/04/23 15:12 36.7 C 63 20 117/71 11/04/23 11:17 97 H 110/72
[2023-11-04] MEDS: miSOPROStoL 50 MCG TAB PO SCH (23:45)
[2023-11-05] MEDS: ePHEDrine sulfate 50 MG/ML AMP ONE
[2023-11-05] MEDS: BUPIVACAINE 0.25% PF 30 ML VIAL ONE (00:04)
[2023-11-05] MEDS: LIDOCAINE 2%/EPINEPHRINE 1:200,000 20 ML PF ONE (00:04)
[2023-11-05] MEDS: fentANYL 2 MCG/ML BUPIVacaine 0.125%-NSS 100ML BAG ONE (00:05)
[2023-11-05] MEDS: SODIUM CHLORIDE 0.9% PF INJ 10 ML VIAL ONE (00:07)
[2023-11-05] MEDS: fentaNYL citrate PF 100 MCG/2 ML VIAL ONE (00:07)
--- NOTE | 2023-11-05 00:10 | Anesthesiology Consultation ---
Date of Service November 05, 2023 Assessment & Plan Chart Review Chart Review: Acceptable Risk for Labor Epidural Consults Requested none History Height/Weight Height: 5 ft 4 in Weight: 64.41 kg Allergies Allergy/AdvReac Type Severity Reaction Status Date / Time Penicillins Allergy Intermediate Hives Verified 11/04/23 08:11 Medications Home Medications Medication Instructions Recorded Confirmed Last Taken docusate sodium 100 mg capsule 100 mg PO DAILY 11/04/23 11/04/23 11/03/23 (Colace) ferrous sulfate 27 mg iron tablet 27 mg PO DAILY 11/04/23 11/04/23 11/03/23 vit no.95-ferrous 1 tab PO DAILY 11/04/23 11/04/23 11/03/23 fumarate 28 mg-folic acid 800 mcg tablet () Active Medications Generic Name Dose Route Start Last Admin Trade Name Freq PRN Reason Stop Dose Admin Butorphanol Tartrate 1 mg 11/04/23 15:18 11/04/23 23:01 Butorphanol Tartrate 2 Mg/Ml Vial IV 12/04/23 15:17 1 mg Q2HWA PRN Administration Pain Lactated Ringer's 1,000 mls @ 125 mls/hr 11/04/23 08:10 11/04/23 23:54 Lr IV 11/06/23 08:09 125 mls/hr .Q8H PRN Administration L&D Protocol Protocol Past Medical History Medical History Fibroid During . "Shrinking" Was seen in [place]. Anemia AMA (advanced maternal age) primigravida 35+ Past Family History Family History Father Hypertension Past Surgical History Surgical History No history of previous surgery Social History Smoking Status: Never smoker Hx Alcohol Use: No Hx Substance Use: No Physical Exam Vital Signs Last Vital Signs Temp 36.6 C 11/04/23 19:05 Pulse 136 H 11/05/23 00:09 Resp 18 11/04/23 19:05 BP 72/50 L 11/05/23 00:09 Pulse Ox 92 11/05/23 00:07 Testing Laboratory Results 11/04/23 08:40
[2023-11-05] MEDS ORDERED: NALOXONE HCL 0.4 MG/1 ML VIAL/CARP IV PRN ×2 (00:12→22:01)
[2023-11-05] MEDS ORDERED: fentaNYL citrate PF 100 MCG/2 ML VIAL EPI PRN (00:12)
[2023-11-05] MEDS ORDERED: ROPIVACAINE 0.5% PF 5 MG/ML 20 ML VIAL EPI PRN (00:12)
[2023-11-05] MEDS ORDERED: NALOXONE HCL 1 MG in SODIUM CHLORIDE 0.9% 1,000 ML IV PRN ×2 (00:12→22:01)
[2023-11-05] MEDS ORDERED: SODIUM CHLORIDE 0.9% PF INJ 10 ML VIAL EPI PRN (00:12)
[2023-11-05] MEDS ORDERED: NALBUPHINE HCL INJ 10 MG/ML AMP IV PRN ×2 (00:12→22:01)
[2023-11-05] MEDS ORDERED: BUPIVACAINE 0.25% PF 30 ML VIAL EPI PRN (00:12)
[2023-11-05] MEDS ORDERED: diphenhydrAMINE 50 MG/ML VIAL IV PRN ×2 (00:12→22:01)
[2023-11-05] MEDS ORDERED: ePHEDrine sulfate 50 MG/ML AMP IV PRN ×2 (00:12→22:01)
[2023-11-05] MEDS ORDERED: LIDOCAINE 2% MPF LOCAL 5 ML VIAL EPI PRN (00:12)
[2023-11-05] MEDS: LIDOCAINE 2%/EPINEPHRINE 1:200,000 20 ML PF EPI STA (00:41)
[2023-11-05] MEDS: fentaNYL citrate PF 100 MCG/2 ML VIAL EPI STA (00:41)
[2023-11-05] MEDS: BUPIVACAINE 0.25% PF 30 ML VIAL EPI STA (00:41)
[2023-11-05] MEDS: SODIUM CHLORIDE 0.9% PF INJ 10 ML VIAL EPI STA (00:42)
[2023-11-05] MEDS: OXYTOCIN 30 UNITS/NSS 30 UNITS/500 ML BAG IV PRN (06:00)
[2023-11-05] MEDS: ONDANSETRON INJ 2 MG/ML 2 ML VIAL IV PRN (06:17)
[2023-11-05] MEDS: fentANYL 2 MCG/ML BUPIVacaine 0.125%-NSS 100ML BAG EPI PRN (09:00)
[2023-11-05] MEDS ORDERED: Nursing to Pharmacy Communication SCH (18:00)
--- NOTE | 2023-11-05 19:24 | History & Physical Report ---
Date of Service November 05, 2023 Assessment & Plan (1) Cephalopelvic disproportion: Plan Primary low segment section. Admission and Anticipated Discharge Date Admission Date: November 04, 2023 History of Present Illness Chief Complaint: Arrest of labor failure of descent. Primary Care Provider: NO PCP Patient is a 38-year-old 1 para 0 general health is good. has been well dated with an early ultrasound. Her due date is 10/28/2023. She was brought in for induction for postterm at 41 weeks and 2 days gestation. On admission head was high cervix was unripe. Cervical tape was placed. Eventually the patient ruptured her membranes spontaneously at 3 cm. Requested epidural. And then was augmented with IV Pitocin. With the use of the Pitocin we were able to get this cervix to dilate to 9 cm. However the head did not descend. She had arrest of labor at 9 cm for over 4 hours. Despite maximum use of Pitocin. And without any significant descent. The Pitocin actually had to be cut back at 1 time and then restarted due to an abnormal heart rate tracings and some type II decelerations. The patient was diagnosed with cephalopelvic disproportion. Arrest of labor. Failure of head to descend. Allergies Allergy/AdvReac Type Severity Reaction Status Date / Time Penicillins Allergy Intermediate Hives Verified 11/04/23 08:11 Home Medications Medication Instructions Recorded Confirmed Type docusate sodium 100 mg capsule 100 mg PO DAILY 11/04/23 11/04/23 History (Colace) ferrous sulfate 27 mg iron tablet 27 mg PO DAILY 11/04/23 11/04/23 History vit no.95-ferrous 1 tab PO DAILY 11/04/23 11/04/23 History fumarate 28 mg-folic acid 800 mcg tablet () Past Med/Surg History Problem List (Updated 11/05/23 @ 19:23 by Reggie Beck MD) Cephalopelvic disproportion Medical History Fibroid During . "Shrinking" Was seen in [place]. 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 Heart had a regular rhythm S1-S2 normal normal. Lungs are clear to auscultation percussion. Neck was supple trachea midline. Abdominal exam revealed a term size fetus estimated weight over 70 pounds. There was no CVA tenderness. There was no calf tenderness. Pelvic exam revealed vertex presentation. Large amount of cervical molding. -1 to -2 station. Cervical dilatation of 9 cm. Results & Data Results & Data Vital Signs (Past 12 Hours) Vital Signs Temp Pulse Resp BP Pulse Ox 11/05/23 19:12 91 H 93 11/05/23 19:07 88 93 11/05/23 19:04 79 112/68 11/05/23 19:02 80 93 11/05/23 18:57 71 91 11/05/23 18:52 73 94 11/05/23 18:49 69 107/65 11/05/23 18:47 92 H 92 11/05/23 18:42 82 91 11/05/23 18:37 78 95 11/05/23 18:34 75 110/66 11/05/23 18:33 90 87 L 11/05/23 18:32 71 95 11/05/23 18:27 76 96 11/05/23 18:22 84 94 11/05/23 18:20 81 11/05/23 18:20 82 110/64 88 L 11/05/23 18:17 86 94 11/05/23 18:12 93 H 97 11/05/23 18:07 82 92 11/05/23 18:05 81 128/78 11/05/23 18:02 84 94 11/05/23 18:00 18 11/05/23 18:00 36.7 C 18 11/05/23 17:57 80 95 11/05/23 17:52 74 96 11/05/23 17:49 82 113/75 11/05/23 17:47 81 91 11/05/23 17:42 100 H 96 11/05/23 17:37 89 97 11/05/23 17:35 83 119/76 11/05/23 17:32 82 96 11/05/23 17:30 18 11/05/23 17:30 18 11/05/23 17:30 18 11/05/23 17:30 18 11/05/23 17:30 18 11/05/23 17:30 18 11/05/23 17:27 75 95 11/05/23 17:23 77 84 L 11/05/23 17:22 83 94 11/05/23 17:20 103 H 109/74 11/05/23 17:17 117 H 93 11/05/23 17:13 101 H 88 L 11/05/23 17:12 76 90 11/05/23 17:08 85 87 L 11/05/23 17:07 77 89 L 11/05/23 17:06 74 104/61 11/05/23 17:02 78 89 L 11/05/23 16:57 74 93 11/05/23 16:52 86 93 11/05/23 16:49 96 H 100/68 11/05/23 16:47 94 H 87 L 11/05/23 16:42 74 91 11/05/23 16:37 89 92 11/05/23 16:36 92 H 102/61 11/05/23 16:32 79 92 11/05/23 16:30 18 11/05/23 16:30 36.8 C 18 11/05/23 16:27 79 91 11/05/23 16:22 81 92 11/05/23 16:20 82 107/59 L 11/05/23 16:17 83 90 11/05/23 16:12 86 90 11/05/23 16:07 79 91 11/05/23 16:04 80 105/58 L 11/05/23 16:02 86 92 11/05/23 15:57 79 93 11/05/23 15:52 82 92 11/05/23 15:49 82 103/59 L 11/05/23 15:47 79 93 11/05/23 15:42 86 95 11/05/23 15:37 83 98 11/05/23 15:32 97 11/05/23 15:32 99 H 11/05/23 15:32 97 H 84 L 11/05/23 15:27 83 96 11/05/23 15:22 96 H 97 11/05/23 15:20 83 104/57 L 11/05/23 15:17 98 H 96 11/05/23 15:12 85 99 11/05/23 15:07 90 96 11/05/23 15:04 93 H 98/57 L 11/05/23 15:02 78 97 11/05/23 14:57 83 98 11/05/23 14:52 87 96 11/05/23 14:49 81 101/58 L 11/05/23 14:47 79 97 11/05/23 14:42 95 H 95 11/05/23 14:40 78 105/59 L 11/05/23 14:37 91 H 97 11/05/23 14:35 104 H 85 L 11/05/23 14:32 91 H 98 11/05/23 14:27 93 H 96 11/05/23 14:22 97 H 97 11/05/23 14:20 94 H 124/57 L 11/05/23 14:17 104 H 96 11/05/23 14:12 92 H 100 11/05/23 14:07 93 H 98 11/05/23 14:02 94 H 90 11/05/23 14:00 18 11/05/23 14:00 36.8 C 18 11/05/23 13:59 88 83 L 11/05/23 13:57 78 96 11/05/23 13:52 80 96 11/05/23 13:49 92 H 122/74 11/05/23 13:47 76 97 11/05/23 13:42 89 95 11/05/23 13:37 84 97 11/05/23 13:35 88 85 L 11/05/23 13:34 74 119/79 11/05/23 13:32 83 94 11/05/23 13:29 95 H 86 L 11/05/23 13:27 93 H 95 11/05/23 13:22 86 95 11/05/23 13:20 90 82 L 11/05/23 13:19 88 121/79 11/05/23 13:17 82 96 11/05/23 13:13 82 87 L 11/05/23 13:12 84 89 L 11/05/23 13:08 83 82 L 11/05/23 13:07 83 94 11/05/23 13:05 75 122/71 11/05/23 13:02 82 93 11/05/23 12:58 80 84 L 11/05/23 12:57 79 94 11/05/23 12:52 84 94 11/05/23 12:51 100 H 112/73 86 L 11/05/23 12:47 115 H 91 11/05/23 12:42 86 93 11/05/23 12:37 91 H 96 11/05/23 12:36 80 123/61 11/05/23 12:34 93 H 88 L 11/05/23 12:32 72 90 11/05/23 12:27 74 90 11/05/23 12:22 84 90 11/05/23 12:19 96 H 104/64 11/05/23 12:17 73 89 L 11/05/23 12:12 82 91 11/05/23 12:07 77 92 11/05/23 12:05 72 110/65 11/05/23 12:02 71 90 11/05/23 12:00 79 88 L 11/05/23 11:57 70 90 11/05/23 11:55 74 88 L 11/05/23 11:52 75 91 11/05/23 11:50 71 105/64 11/05/23 11:47 71 89 L 11/05/23 11:42 88 L 11/05/23 11:42 79 11/05/23 11:42 76 87 L 11/05/23 11:37 72 90 11/05/23 11:36 73 88 L 11/05/23 11:34 73 104/62 11/05/23 11:32 84 88 L 11/05/23 11:29 77 88 L 11/05/23 11:27 74 90 11/05/23 11:22 69 93 11/05/23 11:20 73 107/68 86 L 11/05/23 11:17 78 93 11/05/23 11:12 75 91 11/05/23 11:08 88 105/64 11/05/23 11:07 92 H 94 11/05/23 11:04 107 H 88 L 11/05/23 11:02 102 H 92 11/05/23 11:00 18 11/05/23 11:00 36.9 C 18 11/05/23 10:57 73 95 11/05/23 10:52 87 93 11/05/23 10:50 76 105/56 L 11/05/23 10:47 82 93 11/05/23 10:42 79 90 11/05/23 10:37 88 90 11/05/23 10:34 83 92/54 L 11/05/23 10:32 78 92 11/05/23 10:28 95 H 87 L 11/05/23 10:27 88 88 L 11/05/23 10:23 94 H 87 L 11/05/23 10:22 98 H 89 L 11/05/23 10:20 82 96/51 L 11/05/23 10:17 87 88 L 11/05/23 10:12 89 L 11/05/23 10:12 80 11/05/23 10:12 73 87 L 11/05/23 10:07 88 89 L 11/05/23 10:06 90 93/53 L 87 L 11/05/23 10:02 90 88 L 11/05/23 09:59 80 88 L 11/05/23 09:57 82 88 L 11/05/23 09:53 80 88 L 11/05/23 09:52 78 89 L 11/05/23 09:50 85 99/60 L 11/05/23 09:47 88 88 L 11/05/23 09:42 85 88 L 11/05/23 09:37 79 92 11/05/23 09:36 77 93/50 L 11/05/23 09:34 93 H 86 L 11/05/23 09:32 89 88 L 11/05/23 09:27 76 93 11/05/23 09:22 93 H 89 L 11/05/23 09:21 83 95/54 L 11/05/23 09:20 85 87 L 11/05/23 09:17 88 91 11/05/23 09:12 83 92 11/05/23 09:07 126 H 92 11/05/23 09:06 82 105/70 11/05/23 09:02 75 90 11/05/23 09:01 83 87 L 11/05/23 09:00 16 11/05/23 09:00 37.3 C 16 11/05/23 08:57 84 88 L 11/05/23 08:55 75 88 L 11/05/23 08:52 76 93 11/05/23 08:50 110 H 108/56 L 11/05/23 08:47 82 93 11/05/23 08:42 90 90 11/05/23 08:37 94 H 93 11/05/23 08:36 86 101/60 11/05/23 08:35 86 90 11/05/23 08:34 93 H 97/55 L 11/05/23 08:32 78 90 11/05/23 08:27 82 88 L 11/05/23 08:22 92 H 90 11/05/23 08:19 82 102/59 L 11/05/23 08:17 83 90 11/05/23 08:12 90 11/05/23 08:12 79 11/05/23 08:12 79 91 11/05/23 08:07 98 H 89 L 11/05/23 08:06 97 H 90 11/05/23 08:04 89 103/67 11/05/23 08:02 81 96 11/05/23 08:00 78 91 11/05/23 07:57 87 97 11/05/23 07:55 82 91 11/05/23 07:52 72 94 11/05/23 07:49 88 108/67 90 11/05/23 07:47 75 92 11/05/23 07:42 92 11/05/23 07:42 77 11/05/23 07:42 77 91 11/05/23 07:37 75 93 11/05/23 07:36 92 H 89 L 11/05/23 07:34 85 100/64 11/05/23 07:32 90 93 11/05/23 07:30 85 91 11/05/23 07:27 83 94 11/05/23 07:22 83 94 11/05/23 07:20 77 115/73 11/05/23 07:19 94 H 89 L Diagnostic Findings Cephalopelvic disproportion. Code Status & VTE Plan VTE Prophylaxis Plan VTE Prophylaxis will be ordered: No
[2023-11-05] MEDS: LACTATED RINGER'S 1,000 ML IV SCH ×2 (19:35→23:56)
[2023-11-05] MEDS: ACETAMINOPHEN 500 MG TAB PO SCH (19:41)
[2023-11-05] MEDS: CITRIC ACID/SODIUM CITRATE 15 ML UDC PO SCH (19:41)
[2023-11-05] MEDS: cefOXitin 2,000 MG in DEXTROSE 5 % MINI-B 50 ML IV SCH (19:52)
[2023-11-05] MEDS ORDERED: LIDOCAINE 2%/EPINEPHRINE 1:200,000 20 ML PF ONE (20:29)
[2023-11-05] MEDS ORDERED: LACTATED RINGER'S 1,000 ML IV SCH (20:30)
[2023-11-05] MEDS ORDERED: MoRPHine SULFATE PF 1 MG/ML 10 ML AMP/VIAL ONE (20:42)
[2023-11-05] MEDS ORDERED: KETOROLAC 30 MG/ML VIAL ONE (21:06)
[2023-11-05] MEDS ORDERED: ONDANSETRON INJ 2 MG/ML 2 ML VIAL ONE (21:06)
[2023-11-05] MEDS ORDERED: OXYTOCIN 10 UNITS/ML VIAL ONE (21:06)
[2023-11-05] MEDS ORDERED: SENNA 8.6 MG TAB PO PRN (21:43)
[2023-11-05] MEDS ORDERED: CALCIUM CARBONATE 500 MG CHEWABLE TAB PO PRN (21:43)
[2023-11-05] MEDS ORDERED: HYDROCORTISONE ACETATE 25 MG SUPP PR PRN (21:43)
[2023-11-05] MEDS ORDERED: MAGNESIUM HYDROXIDE SUSP 30 ML UDC PO PRN (21:43)
[2023-11-05] MEDS ORDERED: BENZOCAINE 20% SPRY 85 APPLN/85 GM CAN EXT PRN (21:43)
[2023-11-05] MEDS ORDERED: KETOROLAC 30 MG/ML VIAL IV SCH (21:45)
--- NOTE | 2023-11-05 21:52 | Operative Report ---
Post Operative Report Pre & Post Diagnosis Operation Date: 11/05/23 19:30 Pre-Op Diagnosis: 1. Arrest of labor 2. Failure of descent Post-Op Diagnosis: 1. Same 2. Delivery of live male child at 2052 I identified the patient and participated in the time-out.: Yes Procedure Operation Date: 11/05/23 19:30 Actual Procedures p Section in - Reggie Beck MD Surgeon Reggie Beck MD C D Area Supervisor Nurse studio assistant Estimated Blood Loss 547 Findings Consistent with Post-Op Diagnosis Fibroid uterus Specimens Placenta Drains None Anesthesia Type MAC Epidural Complications None Indications Arrest of descent of the head secondary to cephalopelvic disproportion. Description of Procedure Patient was brought to the operating room identified by armband and conversation Akers catheter was inserted into the bladder connected to gravity drainage compression stockings were applied. Lower abdomen was painted with an alcohol- based sterilizing solution and then draped in usual sterile fashion. Level of the anesthesia was checked and found to be adequate. Timeout was done to identify the patient. An incision was then made and carried down to the anterior fascia by sharp dissection. Hemostasis was secured by electrocauterization. The fascia was incised bilaterally and from the underlying muscle by blunt and sharp dissection. Recti muscles were in the midline. Peritoneum was carefully raised and entered. A bladder retractor was used to expose the lower uterine segment incision was made on the lower uterine segment and then entered bluntly with the scissors. Clear amniotic fluid was seen at this time. The operators hand was inserted into the pelvic cavity and the head easily started out through the abdominal wall. I then switched to a pectus retractor and with pressure delivered the head. Was a nuchal cord x 1 which I reduced over the head. I then delivered the suction the infant through the mouth and the nose and allowed the cord to pulse for 1 full minute. Then clamped the cord cut the cord and handed the off to the senior report developer Dr. Paulino who is scrubbed and present at the time of the delivery. Cord blood was taken. I manually removed the placenta from the uterus. Then brought the placenta out through the abdominal cavity. I used 4 ring forceps to identify the lower uterine defect. 1 ring forceps on each angle. And 1 in the middle of the defect on the top and 1 in the middle on the bottom. I then approximated the muscular layer with a continuous interlocking suture of heavy chromic. I then used a horizontal suture of heavy Vicryl to approximate the fascia over this chromic approximation. And completed the approximation with about 3 additional [id number] sutures of Vicryl to cover the chromic approximation and approximate the fascial layer. I then sutured the peritoneal edges together with a plain suture reapproximating the bladder. Pelvis was cleansed of all blood clots and debris. Uterus tubes and ovaries were reinserted into the abdominal cavity. The incisional line was found to be hemostatic. We then did a careful anatomical approximation of the anterior abdominal wall. Peritoneum was closed with a continuous plain suture. Recti muscles were approximated with interrupted [id number] suture chromic. Fascia was closed with continuous interlocking suture of Vicryl on each side tied in the midline. Subcu was approximated with a running plain. Skin edges are approximated with staple clips. Patient Toller procedure well. I attest to the content of the Intraoperative Record and any orders documented therein. Any exceptions are noted below.
[2023-11-05] MEDS ORDERED: PROMETHAZINE 6.25 MG/50.25 ML BAG IV PRN (22:01)
[2023-11-05] MEDS ORDERED: MEPERIDINE HCL 25 MG/ML CARP/VIAL IV PRN (22:01)
[2023-11-05] MEDS ORDERED: MoRPHine SULFATE 2 MG/ML CARP IV PRN (22:01)
[2023-11-05] MEDS ORDERED: NALOXONE HCL 0.08 MG in SYRINGE 1.8 ML IV PRN (22:01)
[2023-11-05] MEDS ORDERED: ONDANSETRON INJ 2 MG/ML 2 ML VIAL IV PRN (22:01)
[2023-11-05] MEDS ORDERED: LACTATED RINGER'S 500 ML IV PRN (22:01)
--- NOTE | 2023-11-05 22:03 | Communication Note ---
Date of Service: November 05, 2023 patient was seen prior to c section. epidural working well. discussed anesthetic care with patient to include dosing of her labor epidural for a surg ical anesthetic. she understands and all questions were answered. will proceed under epidural anesthetic.
--- NOTE | 2023-11-05 22:04 | Anesthesia Procedure Note ---
Date of Service November 05, 2023 Anesthesia Post Epidural Note Vital Signs Vital Signs: Temp Pulse Resp BP Pulse Ox 36.9 C 104 H 16 118/52 L 93 11/05/23 21:49 11/05/23 22:01 11/05/23 21:49 11/05/23 21:49 11/05/23 22:01 Pain Intensity Abdomen: Pain Intensity: 2 Notes Mental Status: alert / awake / arousable Nausea / Vomiting: adequately controlled Pain: adequately controlled Airway Patency, RR, SpO2: stable & adequate BP & HR: stable & adequate Hydration State: stable & adequate Neuraxial Anesthesia: was administered and sensory block is resolving Anesthetic Complications: no major complications apparent and Pt Satisfied with anesthetic care Epidural: Removed without complications and With tip intact
--- NOTE | 2023-11-05 22:04 | Anesthesiology Progress Note ---
Date of Service November 05, 2023 Anesthesia Post Procedure Vital Signs Vital Signs: Temp Pulse Resp BP Pulse Ox 11/05/23 22:01 104 H 93 11/05/23 21:58 100 H 93 11/05/23 21:55 95 H 93 11/05/23 21:53 99 H 96 11/05/23 21:49 36.9 C 16 11/05/23 21:49 102 H 118/52 L 11/05/23 21:48 107 H 92 11/05/23 20:27 91 H 93 11/05/23 20:25 104 H 88 L 11/05/23 20:22 102 H 93 11/05/23 20:21 107 H 106/72 11/05/23 20:17 107 H 93 11/05/23 20:15 106 H 88 L 11/05/23 20:12 127 H 89 L 11/05/23 20:09 121 H 87 L 11/05/23 20:07 102 H 88 L 11/05/23 20:04 117 H 11/05/23 20:04 118 H 109/74 87 L 11/05/23 20:02 143 H 92 11/05/23 19:57 122 H 92 11/05/23 19:52 120 H 92 11/05/23 19:49 87 109/69 11/05/23 19:47 92 H 95 11/05/23 19:42 112 H 92 11/05/23 19:40 18 11/05/23 19:40 36.7 C 18 11/05/23 19:37 93 H 91 11/05/23 19:36 93 H 105/66 11/05/23 19:32 80 93 11/05/23 19:27 88 93 11/05/23 19:22 97 H 97 11/05/23 19:20 83 108/66 11/05/23 19:17 85 95 11/05/23 19:12 91 H 93 11/05/23 19:07 88 93 11/05/23 19:04 79 112/68 11/05/23 19:02 80 93 11/05/23 18:57 71 91 11/05/23 18:52 73 94 11/05/23 18:49 69 107/65 11/05/23 18:47 92 H 92 11/05/23 18:42 82 91 11/05/23 18:37 78 95 11/05/23 18:34 75 110/66 11/05/23 18:33 90 87 L 11/05/23 18:32 71 95 11/05/23 18:27 76 96 11/05/23 18:22 84 94 11/05/23 18:20 81 11/05/23 18:20 82 110/64 88 L 11/05/23 18:17 86 94 11/05/23 18:12 93 H 97 11/05/23 18:07 82 92 11/05/23 18:05 81 128/78 11/05/23 18:02 84 94 11/05/23 18:00 18 11/05/23 18:00 36.7 C 18 11/05/23 17:57 80 95 11/05/23 17:52 74 96 11/05/23 17:49 82 113/75 11/05/23 17:47 81 91 11/05/23 17:42 100 H 96 11/05/23 17:37 89 97 11/05/23 17:35 83 119/76 11/05/23 17:32 82 96 11/05/23 17:30 18 11/05/23 17:30 18 11/05/23 17:30 18 11/05/23 17:30 18 11/05/23 17:30 18 11/05/23 17:30 18 11/05/23 17:27 75 95 11/05/23 17:23 77 84 L 11/05/23 17:22 83 94 11/05/23 17:20 103 H 109/74 11/05/23 17:17 117 H 93 11/05/23 17:13 101 H 88 L 11/05/23 17:12 76 90 11/05/23 17:08 85 87 L 11/05/23 17:07 77 89 L 11/05/23 17:06 74 104/61 11/05/23 17:02 78 89 L 11/05/23 16:57 74 93 11/05/23 16:52 86 93 11/05/23 16:49 96 H 100/68 11/05/23 16:47 94 H 87 L 11/05/23 16:42 74 91 11/05/23 16:37 89 92 11/05/23 16:36 92 H 102/61 11/05/23 16:32 79 92 09/26/24 16:30 18 11/05/23 16:30 36.8 C 18 11/05/23 16:27 79 91 11/05/23 16:22 81 92 11/05/23 16:20 82 107/59 L 11/05/23 16:17 83 90 11/05/23 16:12 86 90 11/05/23 16:07 79 91 11/05/23 16:04 80 105/58 L 11/05/23 16:02 86 92 11/05/23 15:57 79 93 11/05/23 15:52 82 92 11/05/23 15:49 82 103/59 L 11/05/23 15:47 79 93 11/05/23 15:42 86 95 11/05/23 15:37 83 98 11/05/23 15:32 97 11/05/23 15:32 99 H 11/05/23 15:32 97 H 84 L 11/05/23 15:27 83 96 11/05/23 15:22 96 H 97 11/05/23 15:20 83 104/57 L 11/05/23 15:17 98 H 96 11/05/23 15:12 85 99 11/05/23 15:07 90 96 11/05/23 15:04 93 H 98/57 L 11/05/23 15:02 78 97 11/05/23 14:57 83 98 11/05/23 14:52 87 96 11/05/23 14:49 81 101/58 L 11/05/23 14:47 79 97 11/05/23 14:42 95 H 95 11/05/23 14:40 78 105/59 L 11/05/23 14:37 91 H 97 11/05/23 14:35 104 H 85 L 11/05/23 14:32 91 H 98 11/05/23 14:27 93 H 96 11/05/23 14:22 97 H 97 11/05/23 14:20 94 H 124/57 L 11/05/23 14:17 104 H 96 11/05/23 14:12 92 H 100 11/05/23 14:07 93 H 98 11/05/23 14:02 94 H 90 11/05/23 14:00 18 11/05/23 14:00 36.8 C 18 11/05/23 13:59 88 83 L 11/05/23 13:57 78 96 11/05/23 13:52 80 96 11/05/23 13:49 92 H 122/74 11/05/23 13:47 76 97 11/05/23 13:42 89 95 11/05/23 13:37 84 97 11/05/23 13:35 88 85 L 11/05/23 13:34 74 119/79 11/05/23 13:32 83 94 11/05/23 13:29 95 H 86 L 11/05/23 13:27 93 H 95 11/05/23 13:22 86 95 11/05/23 13:20 90 82 L 11/05/23 13:19 88 121/79 11/05/23 13:17 82 96 11/05/23 13:13 82 87 L 11/05/23 13:12 84 89 L 11/05/23 13:08 83 82 L 11/05/23 13:07 83 94 11/05/23 13:05 75 122/71 11/05/23 13:02 82 93 11/05/23 12:58 80 84 L 11/05/23 12:57 79 94 11/05/23 12:52 84 94 11/05/23 12:51 100 H 112/73 86 L 11/05/23 12:47 115 H 91 11/05/23 12:42 86 93 11/05/23 12:37 91 H 96 11/05/23 12:36 80 123/61 11/05/23 12:34 93 H 88 L 11/05/23 12:32 72 90 11/05/23 12:27 74 90 11/05/23 12:22 84 90 11/05/23 12:19 96 H 104/64 11/05/23 12:17 73 89 L 11/05/23 12:12 82 91 11/05/23 12:07 77 92 11/05/23 12:05 72 110/65 11/05/23 12:02 71 90 11/05/23 12:00 79 88 L 11/05/23 11:57 70 90 11/05/23 11:55 74 88 L 11/05/23 11:52 75 91 11/05/23 11:50 71 105/64 11/05/23 11:47 71 89 L 11/05/23 11:42 88 L 11/05/23 11:42 79 11/05/23 11:42 76 87 L 11/05/23 11:37 72 90 11/05/23 11:36 73 88 L 11/05/23 11:34 73 104/62 11/05/23 11:32 84 88 L 11/05/23 11:29 77 88 L 11/05/23 11:27 74 90 11/05/23 11:22 69 93 11/05/23 11:20 73 107/68 86 L 11/05/23 11:17 78 93 11/05/23 11:12 75 91 11/05/23 11:08 88 105/64 11/05/23 11:07 92 H 94 11/05/23 11:04 107 H 88 L 11/05/23 11:02 102 H 92 11/05/23 11:00 18 11/05/23 11:00 36.9 C 18 11/05/23 10:57 73 95 11/05/23 10:52 87 93 11/05/23 10:50 76 105/56 L 11/05/23 10:47 82 93 11/05/23 10:42 79 90 11/05/23 10:37 88 90 11/05/23 10:34 83 92/54 L 11/05/23 10:32 78 92 11/05/23 10:28 95 H 87 L 11/05/23 10:27 88 88 L 11/05/23 10:23 94 H 87 L 11/05/23 10:22 98 H 89 L 11/05/23 10:20 82 96/51 L 11/05/23 10:17 87 88 L 11/05/23 10:12 89 L 11/05/23 10:12 80 11/05/23 10:12 73 87 L 11/05/23 10:07 88 89 L 11/05/23 10:06 90 93/53 L 87 L 11/05/23 10:02 90 88 L 11/05/23 09:59 80 88 L 11/05/23 09:57 82 88 L 11/05/23 09:53 80 88 L 11/05/23 09:52 78 89 L 11/05/23 09:50 85 99/60 L 11/05/23 09:47 88 88 L 11/05/23 09:42 85 88 L 11/05/23 09:37 79 92 11/05/23 09:36 77 93/50 L 11/05/23 09:34 93 H 86 L 11/05/23 09:32 89 88 L 11/05/23 09:27 76 93 11/05/23 09:22 93 H 89 L 11/05/23 09:21 83 95/54 L 11/05/23 09:20 85 87 L 11/05/23 09:17 88 91 11/05/23 09:12 83 92 11/05/23 09:07 126 H 92 11/05/23 09:06 82 105/70 11/05/23 09:02 75 90 11/05/23 09:01 83 87 L 11/05/23 09:00 16 11/05/23 09:00 37.3 C 16 11/05/23 08:57 84 88 L 11/05/23 08:55 75 88 L 11/05/23 08:52 76 93 11/05/23 08:50 110 H 108/56 L 11/05/23 08:47 82 93 11/05/23 08:42 90 90 11/05/23 08:37 94 H 93 11/05/23 08:36 86 101/60 11/05/23 08:35 86 90 11/05/23 08:34 93 H 97/55 L 11/05/23 08:32 78 90 11/05/23 08:27 82 88 L 11/05/23 08:22 92 H 90 11/05/23 08:19 82 102/59 L 11/05/23 08:17 83 90 11/05/23 08:12 90 11/05/23 08:12 79 11/05/23 08:12 79 91 11/05/23 08:07 98 H 89 L 11/05/23 08:06 97 H 90 11/05/23 08:04 89 103/67 11/05/23 08:02 81 96 11/05/23 08:00 78 91 11/05/23 07:57 87 97 11/05/23 07:55 82 91 11/05/23 07:52 72 94 11/05/23 07:49 88 108/67 90 11/05/23 07:47 75 92 11/05/23 07:42 92 11/05/23 07:42 77 11/05/23 07:42 77 91 11/05/23 07:37 75 93 11/05/23 07:36 92 H 89 L 11/05/23 07:34 85 100/64 11/05/23 07:32 90 93 11/05/23 07:30 85 91 11/05/23 07:27 83 94 11/05/23 07:22 83 94 11/05/23 07:20 77 115/73 11/05/23 07:19 94 H 89 L 11/05/23 07:17 85 95 11/05/23 07:12 82 95 11/05/23 07:11 87 90 11/05/23 07:07 100 H 94 11/05/23 07:05 36.8 C 77 18 109/67 11/05/23 07:02 91 H 94 11/05/23 07:00 84 90 11/05/23 06:57 95 H 93 11/05/23 06:52 122 H 93 11/05/23 06:51 110 H 101/67 11/05/23 06:47 92 11/05/23 06:47 85 11/05/23 06:47 90 91 11/05/23 06:42 78 93 11/05/23 06:39 113 H 90 11/05/23 06:37 82 95 11/05/23 06:34 122 H 104/73 11/05/23 06:32 105 H 96 11/05/23 06:30 18 11/05/23 06:30 36.8 C 18 11/05/23 06:27 115 H 97 11/05/23 06:26 97 H 90 11/05/23 06:22 102 H 95 11/05/23 06:20 86 108/70 11/05/23 06:17 117 H 93 11/05/23 06:12 86 97 11/05/23 06:07 138 H 95 11/05/23 06:04 133 H 101/77 11/05/23 06:02 125 H 94 11/05/23 06:00 89 89 L 11/05/23 05:57 137 H 95 11/05/23 05:52 121 H 98 11/05/23 05:50 105 H 109/78 11/05/23 05:47 129 H 97 11/05/23 05:45 104 H 88 L 11/05/23 05:42 79 94 11/05/23 05:37 79 95 11/05/23 05:35 81 109/70 11/05/23 05:32 80 93 11/05/23 05:27 84 92 11/05/23 05:22 87 94 11/05/23 05:21 102 H 91 11/05/23 05:19 86 108/71 11/05/23 05:17 81 90 11/05/23 05:12 78 91 11/05/23 05:07 84 92 11/05/23 05:06 80 91 11/05/23 05:04 85 110/69 11/05/23 05:02 94 H 92 11/05/23 04:57 85 93 11/05/23 04:52 80 93 11/05/23 04:50 80 112/70 11/05/23 04:48 84 91 11/05/23 04:47 87 91 11/05/23 04:42 83 94 11/05/23 04:37 88 94 11/05/23 04:35 80 110/71 11/05/23 04:33 18 11/05/23 04:33 36.6 C 18 11/05/23 04:32 80 93 11/05/23 04:28 119 H 91 11/05/23 04:27 116 H 92 11/05/23 04:22 105 H 90 11/05/23 04:20 103 H 90 11/05/23 04:19 102 H 105/57 L 11/05/23 04:17 82 93 11/05/23 04:14 99 H 90 11/05/23 04:12 97 H 89 L 11/05/23 04:08 98 H 91 11/05/23 04:07 107 H 91 11/05/23 04:04 99 H 100/58 L 11/05/23 04:02 90 90 11/05/23 03:57 100 H 89 L 11/05/23 03:52 80 91 11/05/23 03:51 105 H 94/63 L 11/05/23 03:50 99 H 90 11/05/23 03:47 97 H 90 11/05/23 03:44 98 H 91 11/05/23 03:42 101 H 91 11/05/23 03:39 83 91 11/05/23 03:37 102 H 92 11/05/23 03:34 95 H 11/05/23 03:34 95 H 101/57 L 91 11/05/23 03:32 85 92 11/05/23 03:29 90 90 11/05/23 03:27 89 91 11/05/23 03:23 100 H 91 11/05/23 03:22 100 H 89 L 11/05/23 03:19 98 H 101/59 L 11/05/23 03:18 79 90 11/05/23 03:17 80 91 11/05/23 03:13 92 H 90 11/05/23 03:12 89 94 11/05/23 03:08 96 H 91 11/05/23 03:07 88 89 L 11/05/23 03:04 77 102/63 11/05/23 03:03 76 91 11/05/23 03:02 78 91 11/05/23 02:57 85 90 11/05/23 02:52 90 92 11/05/23 02:51 36.6 C 11/05/23 02:51 36.6 C 84 18 104/64 11/05/23 02:47 82 94 11/05/23 02:42 83 94 11/05/23 02:37 87 93 11/05/23 02:35 85 114/79 11/05/23 02:32 98 H 93 11/05/23 02:27 78 90 11/05/23 02:22 87 91 11/05/23 02:20 71 105/65 91 11/05/23 02:17 78 92 11/05/23 02:15 76 91 11/05/23 02:12 84 91 11/05/23 02:09 71 90 11/05/23 02:07 90 93 11/05/23 02:05 68 107/68 11/05/23 02:04 74 91 11/05/23 02:02 111 H 92 11/05/23 01:57 93 11/05/23 01:57 95 H 11/05/23 01:57 91 H 91 11/05/23 01:52 97 H 93 11/05/23 01:51 79 91 11/05/23 01:50 71 108/66 11/05/23 01:47 111 H 94 11/05/23 01:44 72 91 11/05/23 01:42 78 93 11/05/23 01:39 74 91 11/05/23 01:37 99 H 93 11/05/23 01:34 68 113/69 11/05/23 01:32 76 91 11/05/23 01:27 67 91 11/05/23 01:22 86 91 11/05/23 01:19 77 109/70 11/05/23 01:17 70 91 11/05/23 01:12 71 91 11/05/23 01:10 102 H 91 11/05/23 01:07 77 90 11/05/23 01:05 81 14 91 11/05/23 01:04 81 111/70 11/05/23 01:02 92 H 92 11/05/23 00:59 36.6 C 11/05/23 00:57 79 92 11/05/23 00:55 16 11/05/23 00:55 16 11/05/23 00:54 88 91 11/05/23 00:52 74 92 11/05/23 00:49 126 H 100/64 11/05/23 00:47 110 H 91 11/05/23 00:42 74 92 11/05/23 00:40 16 11/05/23 00:40 16 11/05/23 00:37 114 H 92 11/05/23 00:33 81 111/69 11/05/23 00:32 82 90 11/05/23 00:31 78 91 11/05/23 00:27 77 111/63 89 L 11/05/23 00:25 18 11/05/23 00:25 18 11/05/23 00:23 146 H 96/63 L 11/05/23 00:22 130 H 92 11/05/23 00:18 106 H 11/05/23 00:18 100/63 11/05/23 00:18 94 H 109/64 91 11/05/23 00:17 87 92 11/05/23 00:12 79 91 11/05/23 00:11 120 H 104/65 11/05/23 00:10 103 H 16 115/71 11/05/23 00:09 136 H 72/50 L 11/05/23 00:07 125 H 110/70 92 11/05/23 00:05 122 H 115/76 09/26/24 00:03 87 122/79 91 11/05/23 00:02 114 H 92 11/05/23 00:01 150 H 80/51 L 11/04/23 23:57 109 H 92 11/04/23 23:52 80 93 11/04/23 23:48 90 94 11/04/23 23:47 90 95 11/04/23 23:44 85 143/77 H 11/04/23 23:43 80 91 11/04/23 23:42 86 98 11/04/23 23:33 36.5 C Pain Intensity Abdomen: Pain Intensity: 2 Transfer of Care Handoff Completed per policy Notes Mental Status: alert / awake / arousable Nausea / Vomiting: adequately controlled Pain: adequately controlled Airway Patency, RR, SpO2: stable & adequate BP & HR: stable & adequate Hydration State: stable & adequate Neuraxial Anesthesia: was administered and sensory block is resolving Anesthetic Complications: no major complications apparent and Pt Satisfied with anesthetic care
[2023-11-05] MEDS ORDERED: DC INTRASPINAL MORPHINE SCH (22:15)
[2023-11-05] MEDS ORDERED: NO NARCOTICS OR SEDATIVES SCH (22:15)
[2023-11-05] MEDS: DIPHTHER/TETAN/PERTUS Vaccine (Tdap, Adol/Adult) 0.5mL IM ONE (23:46)
[2023-11-06] MEDS: OXYTOCIN 30 UNITS/LR 1,003 ML IV SCH (00:31)
[2023-11-06] MEDS: IBUPROFEN 600 MG TAB PO SCH (01:48)
[2023-11-06] MEDS: ACETAMINOPHEN 325 MG TAB PO SCH (01:49)
[2023-11-06] MEDS: KETOROLAC 30 MG/ML VIAL IV PRN (05:02)
[2023-11-06 06:13] LABS: Basophils # (auto) 0.02 K/uL (0.00-0.20); Basophils % (auto) 0.2 %; Eosinophils # (auto) 0.06 K/uL (0.00-0.50); Eosinophils % (auto) 0.5 %; Hematocrit (blood only) 31.5 % (37.0-47.0); Hemoglobin 10.8 g/dl (12.0-16.0); Immature Granulocytes # (auto) 0.06 K/uL (0.01-0.20); Immature Granulocytes % (auto) 0.5 %; Lymphocytes # (auto) 1.95 K/uL (1.20-3.40); Lymphocytes % (auto) 17.2 %; Mean Corpuscular Hemoglobin 27.5 pg (25.0-34.0); Mean Corpuscular Hgb Conc 34.3 g/dL (32.0-36.0); Mean Corpuscular Volume 80.2 fL (80.0-100.0); Mean Platelet Volume 9.7 fL (9.4-12.4); Monocytes # (auto) 0.51 K/uL (0.11-0.59); Monocytes % (auto) 4.5 %; Neutrophils # (auto) 8.72 K/uL (1.40-6.50); Neutrophils % (auto) 77.1 %; Platelet Count 174 K/uL (130-400); RDW Coefficient of Variation 17.6 % (11.5-14.5); Red Blood Count 3.93 M/uL (4.20-5.40); White Blood Count 11.32 K/ul (4.8-10.8)
[2023-11-06] MEDS: FERROUS SULFATE 325 MG TAB PO SCH (07:57)
[2023-11-06] MEDS: SIMETHICONE 80 MG CHEW PO SCH (07:57)
[2023-11-06] MEDS: DOCUSATE SODIUM 100 MG CAP PO SCH (07:57)
[2023-11-06] MEDS: PRENATAL VITAMIN 1 TAB PO SCH (07:57)
--- NOTE | 2023-11-06 11:24 | Obstetrical Progress Note ---
Date of Service November 06, 2023 Assessment & Plan (1) delivery delivered: POD #1 pt doing well stable vitals continue day 1 care Results & Data Vital Signs (Past 12 Hours) Vital Signs Temp Pulse Pulse Resp BP BP Pulse Ox 11/06/23 11:05 18 98 11/06/23 10:00 16 96 11/06/23 09:00 18 97 11/06/23 08:00 16 96 11/06/23 07:50 11/06/23 07:50 36.8 C 60 16 103/67 96 11/06/23 07:00 16 89 L 11/06/23 06:41 95 11/06/23 05:21 92 11/06/23 04:14 99 11/06/23 03:49 36.7 C 61 16 99/66 L 96 11/06/23 02:58 92 11/06/23 02:10 98 11/06/23 00:35 37.2 C 64 16 92/54 L 94 11/06/23 00:03 65 95/52 L 94 11/06/23 00:01 62 91 11/06/23 00:00 36.8 C 16 98 11/05/23 23:58 70 94 11/05/23 23:53 62 93 11/05/23 23:50 64 91 11/05/23 23:48 63 92 11/05/23 23:44 66 91 11/05/23 23:43 64 93 11/05/23 23:38 75 94 11/05/23 23:33 74 93 11/05/23 23:30 36.6 C 18 98 11/05/23 23:29 71 95/57 L 11/05/23 23:28 71 91 11/05/23 23:23 67 92 O2 Del Method O2 Flow Rate 11/06/23 11:05 11/06/23 10:00 11/06/23 09:00 11/06/23 08:00 11/06/23 07:50 Room Air 11/06/23 07:50 Nasal Cannula 2 11/06/23 07:00 11/06/23 06:41 11/06/23 05:21 11/06/23 04:14 11/06/23 03:49 Room Air 11/06/23 02:58 11/06/23 02:10 11/06/23 00:35 Room Air 11/06/23 00:03 11/06/23 00:01 11/06/23 00:00 Room Air 11/05/23 23:58 11/05/23 23:53 11/05/23 23:50 11/05/23 23:48 11/05/23 23:44 11/05/23 23:43 11/05/23 23:38 11/05/23 23:33 11/05/23 23:30 Room Air 11/05/23 23:29 11/05/23 23:28 11/05/23 23:23
[2023-11-06] MEDS: HYDROmorphone INJ 0.5 MG/0.5 ML SYR IV PRN (13:19)
[2023-11-06] MEDS ORDERED: ZOLPIDEM TARTRATE 5 MG TAB PO PRN (16:02)
[2023-11-06] MEDS ORDERED: HYDROmorphone INJ 0.5 MG/0.5 ML SYR IV PRN (16:02)
[2023-11-06] MEDS ORDERED: diphenhydrAMINE Capsule 25 MG CAP PO PRN (16:02)
[2023-11-06] MEDS ORDERED: diphenhydrAMINE 50 MG/ML VIAL IV PRN (16:02)
[2023-11-06] MEDS ORDERED: PROMETHAZINE 12.5 MG/50.5 ML BAG IV PRN (16:02)
[2023-11-06] MEDS ORDERED: ONDANSETRON INJ 2 MG/ML 2 ML VIAL IV PRN (16:02)
[2023-11-06] MEDS: traMADol HCL 50 MG TABLET PO SCH (16:04)
[2023-11-06] MEDS: oxyCODONE HCL IR 5 MG TAB (IMMEDIATE RELEASE) PO PRN (17:45)
[2023-11-06] MEDS: bisacodyL 5 MG TABEC PO SCH (19:50)
[2023-11-07 05:59] LABS: Hematocrit (blood only) 27.8 % (37.0-47.0); Hemoglobin 9.7 g/dl (12.0-16.0)
--- NOTE | 2023-11-07 08:15 | Obstetrical Progress Note ---
Date of Service November 07, 2023 Assessment & Plan (1) delivery delivered: POD #2 pt doing well no complaints D/c home tomorrow Results & Data Vital Signs (Past 12 Hours) Vital Signs Temp Pulse Pulse Resp BP Pulse Ox O2 Del Method 11/07/23 07:40 36.6 C 69 16 104/68 97 Room Air 11/06/23 23:20 36.7 C 69 18 109/75 97 Room Air
[2023-11-07] MEDS: SODIUM CHLORIDE 0.9% 1,000 ML IV SCH (09:29)
[2023-11-07] MEDS: MoRPHine SULFATE PF 1 MG/ML 10 ML AMP/VIAL INT SPINAL ONE (09:29)
[2023-11-07] MEDS ORDERED: bisacodyL 10 MG SUPP PR PRN (21:43)
[2023-11-08 00:16] VITALS: O2SAT 98
[2023-11-08] MEDS: IBUPROFEN 600 MG TAB PO PRN (03:54)
[2023-11-08] MEDS: ACETAMINOPHEN 325 MG TAB PO PRN (03:55)
[2023-11-08 08:27] VITALS: BP 102/71; PULSE 60; RESP 16; TEMP 98.4
--- NOTE | 2023-11-08 09:37 | Obstetrical Progress Note ---
Date of Service November 08, 2023 Subjective Ambulation: ambulating normally Voiding: no voiding problems Passing Gas:: Yes Diet Tolerance:: regular diet Lochia:: Small Feeding Type:: breast feeding Current Pain Level(1-10): 0 doing well. plans for d/c. Physical Exam Constitutional WD/WN, vitals as above Gastrointestinal (Abdomen) Inspection/Auscultation: abdomen normal to inspection incision c/d/i Musculoskeletal Extremities: extremities normal to inspection Skin no rashes, warm and dry Neurologic patellar DTR's 2+ bilat, sensation intact Psychiatric A+Ox3, euthymic affect Results & Data Vital Signs (Past 12 Hours) Vital Signs Temp Pulse Resp BP Pulse Ox O2 Del Method 11/08/23 07:25 36.9 C 60 16 102/71 Room Air 11/08/23 00:00 36.7 C 64 14 122/87 98 Room Air Laboratory Results Laboratory Results - last 72 hr 11/06/23 11/07/23 05:45 05:42 WBC 11.32 H RBC 3.93 L Hgb 10.8 L 9.7 L Hct 31.5 L 27.8 L MCV 80.2 MCH 27.5 MCHC 34.3 RDW Std Deviation 52.0 H RDW Coeff of Arina 17.6 H Plt Count 174 MPV 9.7 Immature Gran % (Auto) 0.5 Neut % (Auto) 77.1 Lymph % (Auto) 17.2 [place] % (Auto) 4.5 Eos % (Auto) 0.5 Baso % (Auto) 0.2 Neut # (Auto) 8.72 H Lymph # (Auto) 1.95 [place] # (Auto) 0.51 Eos # (Auto) 0.06 Baso # (Auto) 0.02 Immature Gran # (Auto) 0.06
--- NOTE | 2023-11-09 09:32 | Discharge Summary ---
Date of Service November 09, 2023 Admission HPI Per Admitting Provider Patient is a 38-year-old 1 para 0 general health is good. has been well dated with an early ultrasound. Her due date is 10/28/2023. She was brought in for induction for postterm at 41 weeks and 2 days gestation. On admission head was high cervix was unripe. Cervical tape was placed. Eventually the patient ruptured her membranes spontaneously at 3 cm. Requested epidural. And then was augmented with IV Pitocin. With the use of the Pitocin we were able to get this cervix to dilate to 9 cm. However the head did not descend. She had arrest of labor at 9 cm for over 4 hours. Despite maximum use of Pitocin. And without any significant descent. The Pitocin actually had to be cut back at 1 time and then restarted due to an abnormal heart rate tracings and some type II decelerations. The patient was diagnosed with cephalopelvic disproportion. Arrest of labor. Failure of head to descend. Discharge Data Consultations 11/04/23 08:10 Consult Anesthesiology Stat 11/05/23 19:28 Consult Anesthesiology Stat Procedures Performed Operation Date: 11/05/23 19:30 Actual Procedures p Section in - Reggie Beck MD Hospital Course (1) Cephalopelvic disproportion: Plan Patient was admitted for induction of labor for postterm. She was over the 41 weeks gestation. She was given Cervidil tape. Followed by Pitocin. With the Pitocin we were able to dilate the cervix up to 10 cm. At 1 point the Pitocin had to be stopped and restarted due to abnormal heart rate tracing. However despite the use of Pitocin the head failed to descend. She was diagnosed as having an arrest of labor secondary to cephalopelvic disproportion. A primary low segment section was performed. At the time of surgery it was noted that the head was unable to enter at the pelvis. Postoperatively patient had a smooth recovery. She remained afebrile. At the time of discharge her hemoglobin was 9.7. She was ambulating well eating well was given usual pain medications. And told to call the office she had a temp over 100 or any heavy bleeding. She also had a appointment made for removal of denilson.
== END 2023-11-08 12:30 | disposition home or self-care (01) | DRG 788 ==
LOC: 4S1 07:43 → 4E2 11-06 00:40